=== PATIENT | male | born 1950 | race Hispanic/Latino ===

== ENCOUNTER 2019-04-24 14:17 | Inpatient (IN) | payer MEDICARE ==
[~2019-04-24] VITALS: Ht 182.9 cm; Wt 92.1 kg
--- OUTSIDE RECORDS SUMMARY | 2019-04-24 14:19 | XMS REPORT ---
Author Author [facility] Address Unknown Phone Unavailable Care Team Providers Care Manager Of Broadcast Content Name Role Phone Unavailable Unavailable Problems This patient has no known problems. Allergies, Adverse Reactions, Alerts This patient has no known allergies or adverse reactions. Medications This patient has no known medications. Encounters Start Date/Time End Date/Time Encounter Type Admission Type Attending [facility] Care Department Encounter ID 2019-02-13 08:52:02 Outpatient [facility] CAR [id number] 2019-03-22 08:13:00 2019-03-22 08:13:00 Outpatient [facility] MED [id number] 2019-02-13 08:18:00 2019-02-13 08:18:00 Outpatient [facility] [id number] 2019-02-09 15:20:00 2019-02-09 15:20:00 Outpatient [facility] [id number] 2018-12-21 07:58:00 2018-12-21 07:58:00 Outpatient [facility] MED [id number]
--- OUTSIDE RECORDS SUMMARY | 2019-04-24 14:19 | XMS REPORT | Summary of Care ---
Author Author DAYAMI HEARD M.D. Organization Unknown Address Unknown Phone Unavailable Care Team Providers Care Vision Impaired Teacher Name Role Phone DAYAMI HEARD M.D. Unavailable Unavailable JUSTINA P.A. REEMELE Unavailable Unavailable TERELL CH MD Unavailable Unavailable Functional Status Name Dates Details Functional status health issues are not documented Status: Name Dates Details Cognitive status health issues are not documented Status: Problems Name Dates Details Closed displaced intertrochanteric fracture of right femur with routine healing (V54.13, S72.141D) Status: Active Medications Name Dates Details Vitamin D (Ergocalciferol) 51113 UNIT Oral Capsule TAKE 1 CAPSULE WEEKLY. Quantity: 8 JUSTINA P.A., REEJU * Start : 12-May-2018 Active Vitamin D (Ergocalciferol) 07087 UNIT Oral Capsule TAKE 1 CAPSULE WEEKLY. * Quantity: 12 Refills: 0 DAYAMI HEARD M.D. * Start : 12-May-2018 Active Meloxicam 7.5 MG Oral Tablet TAKE 1 TABLET DAILY WITH FOOD. * Quantity: 30 Refills: 1 JUSTINA P.A., REEJU * Start : 29-Jun-2018 Active Allergies and Adverse Reactions Name Dates Details Ibuprofen TABS (Allergy) Status: Active Procedures Procedure Dates Details Procedures not documented Immunization Name Dates Details Immunizations not documented Social History Name Dates Details Unknown if ever smoked Vital Signs Date Test Result Details [id number] Height 72 in Status: Weight 230 lb Status: Body Mass Index Calculated 31.19 kg/m2 Status: Body Surface Area Calculated 2.26 m2 Status: Results Date Description Value Details [id number] [U] XRAY FEMUR 2 VWS RIGHT 43583 XR FEMUR 2 VWS RIGHT Images acquired, not reported on this accession number. Plan of Care Name Dates Details Planned Observations Planned Goals not documented Interventions Provided Medication Changes* Meloxicam 7.5 MG Oral Tablet - Start Labs/Procedures/Imaging* [U] XRAY FEMUR 2 VWS RIGHT 00599; Done: 29 Jun 2018 Plan* pain med prn * continue calcium and vit d supplement * PT: WBAT RLE * mobic rx given - aware of ibuprofen reaction, pt states he has taken advil with no reaction. Advised pt to try one - if no reaction continue med , if pt has reaction to go to nearest ER * RTC in 6 weeks if symptoms does not improve otherwise return to clinic prn. * D/w Dr. Heard. Instructions Name Dates Details Instructions not documented Encounters Appointment; DAYAMI HEARD M.D. Encounter Diagnosis: Problem not documented On: 30-Mar-2018 11:30 Appointment; MONICO HORN P.A. Encounter Diagnosis: Problem not documented On: 12-May-2018 13:45 Appointment; DAYAMI HEARD M.D. Encounter Diagnosis: Problem not documented On: 29-Jun-2018 10:00
[2019-04-24] MEDS ORDERED: DEXTROSE 5% 1,000 ML IV ONE (14:45)
[2019-04-24] MEDS ORDERED: DEXTROSE 5%/0.9% SOD CHL 1,000 ML IV ONE (14:45)
--- NOTE | 2019-04-24 15:06 | NUR ---
STRAIGHT CATH INSERTED PT HAS APPROX 800 CC URINE OUTPUT MD NOTIFIED
--- NOTE | 2019-04-24 15:39 | NUR ---
PER DR KEITH INSERT COLLAZO CATHETHER DUE TO URINARY RETENTION NOTED FROM INSERTION OF STRAIGHT CATHETER; POST INSERTION OF COLLAZO CATHETER PT HAS APPROX 170 CC URINE OUTPUT NOTIFIED
[2019-04-24 15:42] LABS: BASOPHILS % 0.3 % (0.0-1.0); EOSINOPHILS # (AUTO) 0.2 (0.0-0.4); HEMATOCRIT 26.5 % (38.2-49.6); HEMOGLOBIN 8.6 g/dL (14.0-18.0); LYMPHOCYTES # (AUTO) 1.3 (1.0-3.2); MEAN CORPUSCULAR HEMOGLOBIN 32.3 pg (28-32); MEAN CORPUSCULAR HGB CONC 32.5 g/dL (31-35); MEAN CORPUSCULAR VOLUME 99.6 fL (81-99); MONOCYTES # (AUTO) 0.6 (0.2-0.8); MONOCYTES % 4.7 % (4.4-11.3); NEUTROPHILS # (AUTO) 9.6 (2.1-6.9); NEUTROPHILS % 81.7 % (38.7-80.0); PLATELET COUNT 137 x10e3/uL (140-360); RED BLOOD COUNT 2.66 x10e6/uL (4.3-5.7); RED CELL DISTRIBUTION WIDTH 12.7 % (11.7-14.4)
[2019-04-24 15:44] LABS: BILIRUBIN,URINE NEGATIVE (NEGATIVE); CLARITY,URINE CLOUDY (CLEAR); COLOR,URINE YELLOW (YELLOW); KETONES,URINE NEGATIVE (NEGATIVE); LEUKOCYTE ESTERASE ,URINE LARGE (NEGATIVE); NITRITE,URINE NEGATIVE (NEGATIVE); PROTEIN,URINE DIPSTICK TRACE (NEGATIVE); URINE UROBILINOGEN 0.2 mg/dL (0.2 - 1)
--- NOTE | 2019-04-24 15:48 | NUR ---
PT FAMILY BROUGHT FOOD FOR PT PER MD REQUEST; PT EATING MEAL AT THIS TIME
[2019-04-24 16:01] LABS: ALBUMIN 2.9 g/dL (3.5-5.0); ALBUMIN/GLOBULIN RATIO 0.7 (0.8-2.0); ANION GAP 11.2 mmol/L (8-16); CALCIUM 8.5 mg/dL (8.4-10.2); CREATININE, SERUM 1.56 mg/dL (0.72-1.25); POTASSIUM 4.2 mmol/L (3.5-5.1)
[2019-04-24 16:05] LABS: BACTERIA,URINE MANY /HPF; RBC,URINE 0-5 /HPF (0-5); WBC,URINE (MAN) 21-50 /HPF (0-5)
[2019-04-24 16:21] LABS: CREATINE KINASE MB 2.4 ng/mL (0-5.0); THYROID STIMULATING HORMONE 1.327 uIU/mL (0.350-4.940)
--- NOTE | 2019-04-24 16:21 | Diagnostic Imaging Report ---
EXAMINATION: CHEST SINGLE (PORTABLE) INDICATION: Cough, concern for pneumonia. COMPARISON: None FINDINGS: TUBES and LINES: AICD leads project over the right atrium and right ventricle. EKG leads project over the chest. LUNGS: The lung volumes are low. No focal consolidation or pulmonary edema. PLEURA: No pleural effusion or pneumothorax. HEART AND MEDIASTINUM: The cardiomediastinal silhouette is unremarkable. BONES AND SOFT TISSUES: No acute fracture or dislocation. Soft tissues are unremarkable. UPPER ABDOMEN: No free air under the diaphragm. IMPRESSION: Low lung volumes with no focal pneumonia or pulmonary edema. Signed by: Vijay Mendez MD on 04/24/2019 4:17 PM
[2019-04-24] MEDS ORDERED: ONDANSETRON HCL INJ 2MG/ML 2ML 2 MG/ML VIAL IV PRN (17:30)
[2019-04-24] MEDS: SODIUM CHLORIDE 0.9% 1000ML 1,000 ML IV SCH (17:42)
[2019-04-24 18:05] LABS: FERRITIN 226.97 ng/mL (21.81-274.66)
[2019-04-24] MEDS ORDERED: DEXTROSE 50% SYRINGE 50 ML IV PRN (18:15)
[2019-04-24] MEDS: INSULIN LISPRO 100 UNIT/1 ML 3ML VIAL SQ SCH (18:29)
[2019-04-24] MEDS ORDERED: INSULIN REGULAR, HUMAN 100 UNIT/1 ML 3ML VIAL ONE (18:30)
--- NOTE | 2019-04-24 18:50 | NUR ---
Resting in bed, side rails upx2, call light within reach. AAOX3 to time, person, place. Respirations even and unlabored. Bumex 10ml via right FA 20G IV. Report to be given to oncoming nurse of patients status.
[2019-04-24 20:00] VITALS: BP 142/68
--- NOTE | 2019-04-24 20:00 | NUR ---
Patient received lying in bed. AAO x 3. Admission history obtained. Initial physical assessment conducted. Patient had no complaints of pain. Respirations even and non-labored. Nassar catheter draining pale cloudy urine by gravity. IVF infusing at 75 cc/hr. Dressing on left foot assessed and changed. Two ulcers noted to left great toe and old scabs on right/left due to wheelchair transfers at home. Skin abrasion on right weathers. Patient oriented to room, call light and plan of care. Fall precautions implemented. Patient instructed to call for assistance when needed. Call light within reach.
[2019-04-24 22:00] VITALS: BP 142/68
[2019-04-25] VITALS (7 sets, daily range): BP systolic 123–162; BP diastolic 56–73
[2019-04-25] MEDS ORDERED: ATORVASTATIN CA10 MG PO (00:26)
[2019-04-25] MEDS ORDERED: ASPIR 8181 MG PO (00:26)
[2019-04-25] MEDS ORDERED: CLOPIDOGREL75 MG PO (00:26)
[2019-04-25] MEDS ORDERED: SERTRALINE HCL50 MG PO (00:26)
[2019-04-25] MEDS ORDERED: B-121000 MCG PO (00:26)
[2019-04-25] MEDS ORDERED: CARVEDILOL3.125 MG PO (00:26)
[2019-04-25] MEDS ORDERED: FINASTERIDE5 MG PO (00:26)
[2019-04-25] MEDS ORDERED: FUROSEMIDE40 MG PO (00:26)
[2019-04-25] MEDS ORDERED: LANTUS 3ML100 UNITS/ SQ (00:26)
[2019-04-25] MEDS ORDERED: LISINOPRIL2.5 MG PO (00:26)
[2019-04-25] MEDS ORDERED: FLOMAX0.4 MG PO (00:26)
[2019-04-25] MEDS ORDERED: SPIRONOLACTONE25 MG PO (00:26)
[2019-04-25 05:24] LABS: BASOPHILS # (AUTO) 0.1 (0.0-0.1); BASOPHILS % 0.7 % (0.0-1.0); EOSINOPHILS # (AUTO) 0.3 (0.0-0.4); EOSINOPHILS % 3.3 % (0.0-6.0); HEMATOCRIT 27.6 % (38.2-49.6); HEMOGLOBIN 9.1 g/dL (14.0-18.0); LYMPHOCYTES # (AUTO) 1.9 (1.0-3.2); MEAN CORPUSCULAR HEMOGLOBIN 32.5 pg (28-32); MEAN CORPUSCULAR VOLUME 98.6 fL (81-99); MONOCYTES # (AUTO) 0.6 (0.2-0.8); NEUTROPHILS # (AUTO) 4.8 (2.1-6.9); NEUTROPHILS % 62.9 % (38.7-80.0); PLATELET COUNT 143 x10e3/uL (140-360); RED CELL DISTRIBUTION WIDTH 12.4 % (11.7-14.4)
[2019-04-25 05:44] LABS: ANION GAP 12.8 mmol/L (8-16); CALCIUM 8.9 mg/dL (8.4-10.2); CREATININE, SERUM 1.43 mg/dL (0.72-1.25); POTASSIUM 4.8 mmol/L (3.5-5.1)
--- NOTE | 2019-04-25 07:12 | NUR ---
Walking rounds done . Shift report given to oncoming nurse.
[2019-04-25] MEDS: INSULIN LISPRO 100 UNIT/1 ML 3ML VIAL SQ SCH ×4 (08:51→21:00)
--- NOTE | 2019-04-25 09:57 | Consultation ---
DATE OF CONSULTATION: 04/25/2019 Urology Consultation REASON FOR CONSULTATION: Recurrent urinary retention. HISTORY OF PRESENT ILLNESS: Alex Guo is a 68-year-old man admitted with altered mental status, hypoglycemia, acute kidney injury, anemia, and acute cystitis. The patient was unable to void, Nassar catheter was placed revealing urinary retention of 500 mL. Urological consultation was subsequently sought. The patient denies urolithiasis or any urological surgery. The patient saw urologist in the past in [facility], but does not recall his name. He denies any urinary incontinence. PAST MEDICAL AND SURGICAL HISTORY: 1. Hypertension. 2. Diabetes mellitus. 3. CHF. 4. CVA. 5. Status post tonsillectomy. 6. Status post circumcision. 7. Status post multiple lower extremity surgeries. SOCIAL HISTORY: The patient quit smoking when he was about 32 years old. Denies smoking, ethanol, or drug use. 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 ALLERGIES: IBUPROFEN. CURRENT MEDICATIONS: Refer to the MAR. REVIEW OF SYSTEMS: Discussed as above in history of present illness and past medical history, otherwise negative for all other systems. FAMILY HISTORY: Noncontributory to the active urological problems. PHYSICAL EXAMINATION: GENERAL: Chronically ill-appearing man, lying in bed, in no apparent distress. VITAL SIGNS: He is currently afebrile. Vital signs are currently stable. ABDOMEN: Soft, nondistended, nontender without costovertebral angle tenderness. Kidneys not palpable without hepatosplenomegaly. No obvious evidence of hernia. GENITOURINARY: Testes are descended bilaterally. Testes and epididymides are nontender. The patient has a normal circumcised male phallus with normal meatus with Nassar catheter in place draining yellow urine out. For the remaining physical examination systems, please refer to the admission history and physical in the chart. LABORATORY STUDIES: Urine culture is pending. White blood cell count is 7670, which is lower than the 11,730, that was yesterday; hemoglobin 9.1; platelets today are normal at 143, yesterday they were low at 137. The patient's creatinine is 1.43. Urinalysis is significant for 21-50 wbc's with many bacteria. ASSESSMENT: 1. Recurrent urinary retention. 2. Leukocytosis that improved. 3. Thrombocytopenia that is better. 4. Chronic renal insufficiency that is stable. 5. Urinary tract infection. 6. Nassar catheter in situ. 7. Benign prostatic hypertrophy according to the patient due to the fact that he takes prostate medications, which he does not recall at the present time the names. PLAN: 1. Leave the Nassar catheter in place at the present time. 2. Await urine culture and sensitivity and in turn adjust the antibiotics regimen. The patient currently does not seem to be antibiotics and I will therefore order him some. 3. I will order a CT scan of the abdomen and pelvis without contrast. 4. At some point, cystoscopy and retrograde pyelograms will be warranted. Thank you very much for involving us in the care of your patient. We will be happy to follow along with you as well as an outpatient. MD MARION Ortega/MIGDALIA /[id number]
--- NOTE | 2019-04-25 10:03 | Diagnostic Imaging Report ---
Exam: Left foot series, 3 views. Clinical History: Concern for osteomyelitis Comparison: None. Findings: Diffuse osteopenia. No acute fracture or dislocation. Bandage material overlies the great toe. No specific radiographic evidence of osteomyelitis. Plantar calcaneal spur. Scattered atelectatic vascular calcifications. Impression: No acute osseous injury. No specific evidence of osteomyelitis. Signed by: Vijay Mendez MD on 04/25/2019 10:00 AM
[2019-04-25] MEDS: SODIUM CHLORIDE 0.9% 1000ML 1,000 ML IV SCH ×2 (10:06→22:11)
[2019-04-25] MEDS: CEFTRIAXONE SOD 1 GM/NS 50 ML 50 ML IV SCH (10:06)
--- NOTE | 2019-04-25 12:14 | Consultation ---
DATE OF CONSULTATION: 04/25/2019 REASON FOR CONSULTATION: Left foot wound. HISTORY OF PRESENTING ILLNESS: This is a 68-year-old male with past medical history type 2 diabetes, who was admitted through the emergency room for altered mental status and hypoglycemia. The Podiatry service is being consulted for left foot wound. This patient is known to me from being seen as an outpatient approximately two times over the past month. He has a longstanding history of a wound to his left 1st metatarsal head, which has been present for over six months and was previously being treated at a wound care facility. The majority of the history was taken from the patient's brother, who was in the room as patient has altered mental status. The patient also had a stenting procedure of the left lower extremity for peripheral vascular disease approximately six months ago. The patient had been placed on antibiotics and doing local wound care to the left foot. As an outpatient, an MRI was ordered, however, the patient cannot undergo MRI due to pacemaker. The patient currently denies nausea, vomiting, fever, or chills. PAST MEDICAL HISTORY: 1. Type 2 diabetes, peripheral neuropathy. 2. Hypertension. 3. Congestive heart failure. 4. Peripheral vascular disease status post angioplasty. SOCIAL HISTORY: The patient has a history of smoking. Denies alcohol use. He denies any illicit drug usage. ALLERGIES: IBUPROFEN. CURRENT MEDICATIONS: Per the chart. REVIEW OF SYSTEMS: The patient currently denies nausea, vomiting, fever, chills, chest pain, or shortness of breath. PHYSICAL EXAMINATION: GENERAL: Alert and oriented x3, in no apparent distress. VITAL SIGNS: Today, temperature is 97.1, heart rate 71, respiratory rate 18, blood pressure 134/56, pulse ox is 95% on room air. PROBLEM FOCUSED LOWER EXTREMITY PHYSICAL EXAM: VASCULAR: Dorsalis pedis and posterior tibial pulses are nonpalpable to the left lower extremity. Capillary refill time is delayed to the digits approximately 4-5 seconds. Negative erythema, but chronic edema and hemosiderin discoloration is noted to the patient's left hallux. NEUROLOGICAL: Sensation is absent to light touch bilateral. MUSCULOSKELETAL: Deferred at this time. DERMATOLOGICAL: Two open ulcerations are noted to the patient's left foot medial to the left 1st metatarsal head and medial to the left proximal phalanx. The proximal wound is approximately 2 cm x 1 cm and the distal wound is approximately 0.5 cm x 0.5 cm. There is chronic-appearing edema to the periwound. Negative erythema, negative drainage. LABORATORY DATA: White blood cell count is 7.6, hemoglobin 9.1, hematocrit 27.6, platelet count of 143. Sodium 141, potassium 4.8, chloride 109, BUN 37, creatinine 1.43, glucose 141. IMAGING: X-rays, two views were taken of the patient's left foot, which revealed no acute osseous injury, no evidence of osteomyelitis. ASSESSMENT: 1. Left foot chronic ulcerations with possible osteomyelitis. 2. Type 2 diabetes with peripheral neuropathy. 3. Peripheral vascular disease. PLAN: The patient was seen and evaluated. Discussed condition, x-rays, treatment options with the patient in detail. Since the patient has a chronic-appearing wound for greater than six months, we will order advanced imaging to determine if osteomyelitis is present to determine further course of action. The patient would require long-term IV antibiotics versus a partial amputation of the patient's left foot. The case was discussed with the patient's brother by phone after being seen. Since the patient is not a candidate for an MRI due to previous pacemaker placement, we will order white blood cell labeled bone scan to determine if osteomyelitis is present. The Podiatry service will continue to monitor as inpatient. PIOTR Jang/MIGDALIA /[id number]
--- NOTE | 2019-04-25 14:25 | Diagnostic Imaging Report ---
PROCEDURE: CT ABDOMEN AND PELVIS WITHOUT CONTRAST TECHNIQUE: The abdomen and pelvis were scanned utilizing a multidetector helical scanner from the diaphragm to the lesser trochanter without IV or oral contrast material per renal stone protocol. Coronal and sagittal multiplanar reformations were obtained. Technique modification was utilized to maintain the lowest is possible to the patient. DLP: 869.35 mGy-cm COMPARISON: None. INDICATIONS: HEMATURIA FINDINGS: ABSENCE OF INTRAVENOUS CONTRAST DECREASES SENSITIVITY FOR DETECTION OF FOCAL LESIONS AND VASCULAR PATHOLOGY. LOWER THORAX: Leads from a cardiac device. HEPATOBILIARY: No focal hepatic lesions. No biliary ductal dilatation. Calcified gallstone within the gallbladder. SPLEEN: No splenomegaly. PANCREAS: No focal masses or ductal dilatation. ADRENALS: No adrenal nodules. KIDNEYS/URETERS: No hydronephrosis or stones. Right lower pole contour abnormality may represent a solid renal mass. Ultrasound or enhanced CT would be of benefit for further characterization. PELVIC ORGANS/BLADDER: Unremarkable. PERITONEUM / RETROPERITONEUM: No free air or fluid. LYMPH NODES: No lymphadenopathy. VESSELS: Diffuse vascular calcification. GI TRACT: No distention or wall thickening. BONES AND SOFT TISSUES: Partially visualize intramedullary main and femoral neck screws in the proximal right femur. Degenerative changes of the lower lumbar spine. IMPRESSION: 1. Right lower pole renal contour abnormality could represent a solid mass. 2. Single stone within the gallbladder. Hernan Crespo D.O. Dictated by: Hernan Crespo D.O. on 04/25/2019 at 14:28 Electronically approved by: Hernan Crespo D.O. on 04/25/2019 at 14:28
--- NOTE | 2019-04-25 14:56 | NUR ---
Notified Dr.Hampel Kincaid of CT results. No new orders
--- NOTE | 2019-04-25 15:15 | NUR ---
Visit made by the Spiritual Care Department Pastoral Visitor, [place]. Pt sleeping soundly and no family present. Pastoral Visitor left a card describing availability of establishment guide and instructions on how to contact a establishment guide. HUEY HARVEY Ship Superintendent Spiritual Care Department O: [phone] Pager: [phone] ([phone] number calling from)
--- NOTE | 2019-04-25 19:05 | NUR ---
Report given to oncoming nurse of patient's status. Patient with nuclear medicine
--- NOTE | 2019-04-25 19:15 | NUR ---
Patient off floor for procedure ---WBC label bone scan to r/o OM.
--- NOTE | 2019-04-25 20:00 | NUR ---
Patient back to floor from procedure. Patient in stable condition. No acute distress noted. IVF infusing at 75 cc /hr. Patient made comfortable. Fall precautions implemented. Call light within reach.
[2019-04-25] MEDS ORDERED: ATORVASTATIN 10 MG TAB PO SCH (21:00)
[2019-04-25] MEDS: CARVEDILOL 3.125 MG TAB PO SCH (22:22)
[2019-04-25] MEDS: LISINOPRIL 2.5 MG TAB PO SCH (22:23)
[2019-04-26] VITALS (7 sets, daily range): BP systolic 111–141; BP diastolic 52–65
--- NOTE | 2019-04-26 00:08 | Diagnostic Imaging Report ---
Labeled WBC Study Reason for exam: Chronic wound over left 1st metatarsal head x 6 months; evaluate for osteomyelitis Comparison: Left foot radiographs 04/25/2019 Report: The patient's own white blood cells were labeled with Tc-99m HMPAO 30 mCi by a commercial radiopharmacy. Images of the feet and ankles were obtained at 4 hours post administration of the labeled white blood cells. Foci of increased tracer activity are seen in soft tissue superficially at the medial aspect of the left foot opposite the 1st metatarsal head and opposite the distal phalanx of the left great toe. No abnormal accumulation of tracer is seen in bone. Distribution of tracer activity is otherwise unremarkable throughout the feet and ankles. IMPRESSION: No scan evidence of osteomyelitis or septic joint in the left 1st metatarsal head or elsewhere within the feet and ankles. Signed by: Dr. Milly Bragg M.D. on 04/26/2019 12:05 AM
--- NOTE | 2019-04-26 07:00 | NUR ---
BEDSIDE REPORT FROM NIGHT RN. PT DENIES NEEDS AT THIS TIME.
[2019-04-26] MEDS: INSULIN LISPRO 100 UNIT/1 ML 3ML VIAL SQ SCH ×3 (07:30→16:57)
--- NOTE | 2019-04-26 08:00 | NUR ---
DRESSING CHANGED WET TO DRY AT BEDSIDE BY DR MARTINEZ AT THIS TIME. PT TOLERATED
[2019-04-26] MEDS ORDERED: TAMSULOSIN HCL 0.4 MG CAP PO SCH (09:00)
[2019-04-26] MEDS ORDERED: INSULIN GLARGINE 100 UNITS/ML VIAL SQ SCH (09:00)
[2019-04-26] MEDS ORDERED: CLOPIDOGREL BISULFATE 75 MG TAB PO SCH (09:00)
[2019-04-26] MEDS ORDERED: ASPIRIN 81 MG CHEW TAB PO SCH (09:00)
[2019-04-26] MEDS ORDERED: FUROSEMIDE 40 MG TAB PO SCH (09:00)
[2019-04-26] MEDS ORDERED: NON-FORMULARY MEDICATION (Cyanocobalamin (Vitamin B-12) (B-12) 1,000 MCG) PO SCH (09:00)
[2019-04-26] MEDS ORDERED: CYANOCOBALAMIN 1,000 MCG TAB PO SCH (09:00)
[2019-04-26] MEDS ORDERED: INSULIN GLARGINE SQ SCH (09:00)
[2019-04-26] MEDS ORDERED: SPIRONOLACTONE 25 MG TAB PO SCH (09:00)
[2019-04-26] MEDS ORDERED: SERTRALINE HCL 50 MG TAB PO SCH (09:00)
[2019-04-26] MEDS ORDERED: FINASTERIDE 5 MG TAB PO SCH (09:00)
[2019-04-26] MEDS: CARVEDILOL 3.125 MG TAB PO SCH (09:25)
[2019-04-26] MEDS: LISINOPRIL 2.5 MG TAB PO SCH (09:26)
[2019-04-26] MEDS: SODIUM CHLORIDE 0.9% 1000ML 1,000 ML IV SCH (09:27)
[2019-04-26] MEDS: CEFTRIAXONE SOD 1 GM/NS 50 ML 50 ML IV SCH (09:29)
--- NOTE | 2019-04-26 10:17 | Progress Note ---
DATE: 04/26/2019 SUBJECTIVE: This is a 68-year-old male with past medical history of type 2 diabetes, peripheral vascular disease, peripheral neuropathy, who was admitted to the emergency room for altered mental status, hypoglycemia. The Podiatry being consulted for a left foot wound. The patient has no new pedal complaints today. Denies nausea, vomiting, fever, chills, chest pain, or shortness of breath. PHYSICAL EXAMINATION: GENERAL: Alert and oriented x3, in no apparent distress. VITAL SIGNS: Today temperature 97.5, heart rate 69, respiratory rate 17, blood pressure 136/65, and pulse ox 97% on room air. PROBLEM FOCUSED LOWER EXTREMITY PHYSICAL EXAMINATION: VASCULAR: Dorsalis pedis and posterior tibial pulses are nonpalpable to the left lower extremity. Capillary refill time is delayed to the digits approximately 4 to 5 seconds. Negative erythema, but chronic edema with hemosiderin deposits are noted to the patient's left hallux. NEUROLOGICAL: Sensation is absent to light touch bilateral. MUSCULOSKELETAL: Deferred at this time. DERMATOLOGICAL: Two open ulcerations are noted to the patient's left foot along the medial aspect of the 1st metatarsal head and medial aspect of the left proximal phalanx. Both wounds appear to be stable from yesterday's visit and appear largely unchanged. LABORATORY DATA: Labs today glucose 129. IMAGING: Foot x-ray, no acute osseous injury. No specific evidence of osteomyelitis, white blood cell labeled nuclear bone scan reveals no scan evidence of osteomyelitis, septic joint of the 1st metatarsal head or elsewhere within the feet and ankles. ASSESSMENT: 1. Left chronic foot ulcerations. 2. Type 2 diabetes, peripheral neuropathy. 3. Peripheral vascular disease, status post angioplasty. PLAN: The patient was seen and evaluated. Discussed condition, x-rays, and treatment options with the patient in detail. The patient was unable to have MRI yesterday due to pacemaker. So, a white blood cell labeled bone scan was ordered for the patient's left foot, which revealed no osseous evidence of osteomyelitis in the 1st metatarsal head of proximal phalanx. At this time, we will continue local wound care with Betadine wet-to-dry fashion and IV antibiotics. The patient is stable to be discharged from the Podiatry standpoint to follow up in the office within 3 to 5 days of discharge. The Podiatry Service will continue to monitor as inpatient. PIOTR Jang /[id number]
--- NOTE | 2019-04-26 15:43 | NUR ---
CM SPOKE TO PATIENT AT BEDSIDE REGARDING IMM LETTER. IMM LETTER GIVEN WITH EXPLANATION BASED ON ANTICIPATED DISCHARGE DATE. ORIGINAL SIGNED AND PLACED IN CHART; COPY OF ORIGINAL DOCUMENT GIVEN TO PATIENT AT BEDSIDE AND PLACED IN CARE TRANSITION FOLDER. CM CONTACT INFORMATION GIVEN TO PATIENT FOR ANY NEEDS OR CONCERNS. PATIENT WITH NO FURTHER QUESTIONS.
--- NOTE | 2019-04-26 15:45 | NUR ---
TEACHING GIVEN TO PT AND BROTHER ON COLLAZO CARE. TEACH BACK BY THE PT DONE WITH SUCCESS. PT FURNISHED SUPPLIES. PT AND FAMILY MEMBER DENIED FURTHER NEEDS.
--- NOTE | 2019-04-26 16:04 | NUR ---
CM SPOKE TO DR. MEYER REGARDING DISCHARGE PLAN AND PLAN OF CARE. MD PLACED DISCHARGE ORDERS DUE TO RESOLVED AMS AND ADEQUATE UTI TREATMENTS. INFORMED THAT PATIENT WAS RECOMMENDED TO HAVE INPT REHAB OR HOME HEALTH PRIOR TO DISCHARGE. DR. MEYER STATES NOT TO ORDER EITHER; PATIENT IS RETURNING HOME. CM SPOKE TO PATIENT AT BEDSIDE REGARDING DISCHARGE PLAN AND PLAN OF CARE. PATIENT REFUSED THE NEED OF ANY SERVICES AND WILL DISCHARGE HOME WITH NO NEEDS.
[2019-04-26] MEDS ORDERED: AUGMENTIN 875-1 EACH PO (16:33)
--- NOTE | 2019-04-26 17:15 | NUR ---
RUSESLL WHEELED PT OUT TO [employer] TRUCK. PT ABLE TO STEP UP INTO 1 TON TRUCK WITH NO ASSISTANCE.
[2019-04-26] MEDS ORDERED: PENICILLIN V POTASSIUM 500 MG TAB PO SCH ×2 (18:00)
--- NOTE | 2019-05-30 15:51 | Discharge Summary ---
CHIEF COMPLAINT: Altered mental status secondary to findings of low blood sugar. FINAL DIAGNOSES: 1. Urinary tract infection. 2. Altered mental status, resolved. 3. Peripheral vascular disease. DISPOSITION: Home. HOSPITAL COURSE: A 68-year-old male with known history of diabetes type 2 and hypertension, chronic congestive heart failure, status post CVA, brought to the ER with issues of altered mental status due to low blood sugar. There has been no loss of consciousness. No nausea, vomiting, or fever or chills. Evaluation was carried out in the ER. Lower extremities were showing the left foot to have decreased pedal pulses with chronic ulcerations. Blood was reviewed. X-rays were reviewed. Admission was made regarding the altered mental status, hypoglycemia, UTI, peripheral vascular disease, hypertension, status post CVA. Admission will be directed with the urine studies. We will be requesting a Podiatry consult. Home medications were continued as well. As the patient's stay was beginning, it was noted that he was having history and issues of recurrent urinary retention, had been unable to void. A Nassar catheter was placed and 500 mL of urine was released. It was reviewed with Dr. Levine. His impression was recurrent urinary retention, leukocytosis that is improving, thrombocytopenia that is improving, chronic renal insufficiency that is stable, urinary tract infection, Nassar catheter in situ, benign prostatic hypertrophy, according to the patient due to the fact that he takes prostate medications. Requested to leave the Nassar in place for the current time. Awaiting urine cultures. We will be setting up a CT of the abdomen and pelvis. He was then being seen by Dr. Donahue, Podiatry, with issues related to the left foot and following his evaluation of the patient, assessment was made of left foot chronic ulcerations with possible osteomyelitis, type 2 diabetes with peripheral neuropathy, peripheral vascular disease. States that the patient has a chronic appearing wound for greater than 6 months. We will be determining if osteomyelitis is present to determine further course of action. The patient would require long-term IV antibiotics versus a partial amputation of the patient's left foot. Unfortunately, the patient is not a candidate for MRI due to pacemaker placement. A white blood cell labeled bone scan will be determined if osteomyelitis is present. The patient was placed on the [facility] floor, was on ADA diet, was on IV fluids, was on his routine daily medications. We will also continue with his insulin management. Laboratory studies were being closely watched. The patient was demonstrating some mild anemia. Nassar is on board now to assess the patient's urinary retention. Nassar was scheduled to be discontinued by Dr. Levine. The patient was also under the antibiotic management of ceftriaxone. Continued to show evidence of recovery, doing okay overall, alert and orientated x3, was stable enough to be discharged home and to follow up as an outpatient, to be taken off his IV antibiotics, will be addressing p.o. antibiotics outpatient. DIAGNOSTIC AND LABORATORY DATA: X-rays, chest shows low lung volumes with no focal pneumonia or pulmonary edema. White blood cell scan, nuclear medicine study shows no scan evidence of osteomyelitis or septic joint in the left first metatarsal head or elsewhere within the feet and ankles. Routine foot x-ray, left 3 views unremarkable. Abdomen and pelvis CT reveal right lower pole renal contour abnormality could represent a solid mass. Single stone within the gallbladder. Cultures, urine was revealing Enterococcus faecalis. Other laboratory studies shows a CBC initial white cell count 11,700, initial H and H 8.6 and 26.5. Followup CBC one day later, white cell count normal 7600, H and H improved slightly to 9.7 and 27.6. Urinalysis, trace protein, 1+ glucose, trace occult blood. Microscopic examination of sediment was showing 0-5 rbc's by high-power field, 21-50 wbc's by high-power field, many bacteria. Chemistries, initial study, electrolytes were stable. Kidney functions, BUN 42, creatinine 1.56, glucose 215, and with the issues of his minor anemia, a panel was performed showing iron to be low at 33, TIBC low at 238, percent saturation low at 14, transferrin low at 170. Vitamin B12 was elevated at 1207. Followup blood sugars were as high as 326, final study 147. Improvement was documented and the patient was discharged home. DISCHARGE INSTRUCTIONS: We will continue on ADA diet. No equipments or supplies are necessary. No drains or Nassar was needed. Activity level as directed by myself, Dr. Levine, and Dr. Donahue. We noted that he has no documented PCP on his demographic form. It was assured that he may follow back up with me in my office in 2-3 weeks or make a choice to find a PCP. He will be requested to follow up with Dr. Donahue within next 2 weeks for further evaluation of his lower extremities. Following also back up with Dr. Levine outpatient to address his urinary retention. DISCHARGE MEDICATIONS: He will continue on: 1. Augmentin 875 one tablet p.o. b.i.d. #20. 2. Aspirin 81 mg daily. 3. Atorvastatin calcium 10 mg p.o. daily. 4. Carvedilol 3.125 p.o. daily. 5. Plavix 75 mg daily. 6. Vitamin B12 1000 mcg p.o. daily. 7. Finasteride 5 mg p.o. daily. 8. Furosemide 40 mg daily. 9. Lantus 35 units subcu daily. 10. Lisinopril 2.5 mg p.o. daily. 11. Sertraline 50 mg p.o. daily. 12. Spironolactone 25 mg p.o. daily. 13. Flomax 0.4 mg p.o. daily. Dictated by HAZEL Boucher Barrett Anders MD CC/MODL /[id number]
== END 2019-04-26 19:07 | disposition home or self-care (01) | DRG 689 ==
LOC: ER 14:17 → ERHOLD 17:53 → MED/SURG2 18:46
DX: N39.0 Urinary tract infection, site not specified (principal); G93.41 Metabolic encephalopathy; L97.528 Non-pressure chronic ulcer of other part of left foot with other specified severity; I13.0 Hypertensive heart and chronic kidney disease with heart failure and stage 1 through stage 4 chronic kidney disease, or unspecified chronic kidney disease; I73.9 Peripheral vascular disease, unspecified; G62.9 Polyneuropathy, unspecified; E11.621 Type 2 diabetes mellitus with foot ulcer; Z79.4 Long term (current) use of insulin; I50.9 Heart failure, unspecified; Z95.0 Presence of cardiac pacemaker; Z86.73 Personal history of transient ischemic attack (TIA), and cerebral infarction without residual deficits; Z87.891 Personal history of nicotine dependence; D69.6 Thrombocytopenia, unspecified; N40.1 Benign prostatic hyperplasia with lower urinary tract symptoms; R33.8 Other retention of urine; E11.42 Type 2 diabetes mellitus with diabetic polyneuropathy; E11.649 Type 2 diabetes mellitus with hypoglycemia without coma; E11.22 Type 2 diabetes mellitus with diabetic chronic kidney disease; N18.9 Chronic kidney disease, unspecified
CPT/HCPCS: 36415; 51700; 71045; 74176; 78806; 80048; 80053; 81001; 82270; 82550; 82553; 82607; 82728; 82948; 83540; 84443; 84466; 84484; 85025; 87086; 87186; 93005; 96361; 97139; 99284; A9556; A9570; J0696; J1815; J1817; J7030; J7070

== ENCOUNTER 2019-07-02 11:08 | Inpatient (IN) | payer MEDICARE ==
[2019-07-02] VITALS (9 sets, daily range): BP systolic 92–134; BP diastolic 38–67
[~2019-07-02] VITALS: Ht 365.8 cm; Wt 93.0 kg
[~2019-07-02 11:08] MED LIST: ASPIR 8181 MG PO; ATORVASTATIN CA10 MG PO; AUGMENTIN 875-1 EACH PO; B-121000 MCG PO; CARVEDILOL3.125 MG PO; CLOPIDOGREL75 MG PO; FINASTERIDE5 MG PO; FLOMAX0.4 MG PO; FUROSEMIDE40 MG PO; LANTUS 3ML100 UNITS/ SQ; LISINOPRIL2.5 MG PO; SERTRALINE HCL50 MG PO; SPIRONOLACTONE25 MG PO
[2019-07-02] MEDS ORDERED: SODIUM CHLORIDE 0.9% 1000ML 1,000 ML IV ONE (11:30)
[2019-07-02 11:55] LABS: BASOPHILS % 0.3 % (0.0-1.0); EOSINOPHILS # (AUTO) 0.1 (0.0-0.4); EOSINOPHILS % 0.5 % (0.0-6.0); HEMATOCRIT 24.9 % (38.2-49.6); HEMOGLOBIN 8.3 g/dL (14.0-18.0); LYMPHOCYTES # (AUTO) 1.2 (1.0-3.2); LYMPHOCYTES % 7.4 % (18.0-39.1); MEAN CORPUSCULAR HEMOGLOBIN 32.5 pg (28-32); MEAN CORPUSCULAR HGB CONC 33.3 g/dL (31-35); MEAN CORPUSCULAR VOLUME 97.6 fL (81-99); MONOCYTES # (AUTO) 0.6 (0.2-0.8); MONOCYTES % 3.8 % (4.4-11.3); NEUTROPHILS % 87.6 % (38.7-80.0); PLATELET COUNT 199 x10e3/uL (140-360); RED BLOOD COUNT 2.55 x10e6/uL (4.3-5.7); RED CELL DISTRIBUTION WIDTH 12.5 % (11.7-14.4)
[2019-07-02 12:02] LABS: BILIRUBIN,URINE NEGATIVE (NEGATIVE); CLARITY,URINE CLEAR (CLEAR); COLOR,URINE YELLOW (YELLOW); KETONES,URINE NEGATIVE (NEGATIVE); LEUKOCYTE ESTERASE ,URINE NEGATIVE (NEGATIVE); NITRITE,URINE NEGATIVE (NEGATIVE); PROTEIN,URINE DIPSTICK TRACE (NEGATIVE); URINE UROBILINOGEN 0.2 mg/dL (0.2 - 1)
[2019-07-02] MEDS ORDERED: VANCOMYCIN 1GM/NS 250 ML 250 ML IV SCH (12:15)
[2019-07-02] MEDS ORDERED: CEFEPIME 2 GM/NS 0.9% 100 ML 100 ML IV SCH (12:15)
[2019-07-02 12:22] LABS: BACTERIA,URINE RARE /HPF; EPITHELIAL CELLS,URINE FEW /LPF
[2019-07-02 12:22] LABS: INR 1.13; PROTHROMBIN TIME 15.1 seconds (11.9-14.5)
[2019-07-02 12:23] LABS: PARTIAL THROMBOPLASTIN TIME 39.3 seconds (23.8-35.5)
--- NOTE | 2019-07-02 12:45 | Diagnostic Imaging Report ---
EXAMINATION: CHEST SINGLE (PORTABLE) INDICATION: Hypotension, sepsis. COMPARISON: Chest radiograph 04/24/2019. FINDINGS: TUBES and LINES: Left-sided pacemaker with leads overlying the right atrium and right ventricle. LUNGS: Low lung volumes which decreases sensitivity and specificity for pathology. There is patchy opacity at the right lung base. PLEURA: No pleural effusion or pneumothorax. HEART AND MEDIASTINUM: The cardiomediastinal silhouette is unremarkable. BONES AND SOFT TISSUES: No acute osseous abnormality. UPPER ABDOMEN: No free air under the diaphragm. IMPRESSION: Low lung volumes with patchy opacity at the right lung base, which may reflect atelectasis or early pneumonia in the appropriate clinical setting. Suggest follow-up chest radiograph to assess for resolution. Signed by: Dr. Yamel Guzman MD on 07/02/2019 12:42 PM
[2019-07-02 12:47] LABS: ALBUMIN 2.9 g/dL (3.5-5.0); ALBUMIN/GLOBULIN RATIO 0.6 (0.8-2.0); ANION GAP 14.3 mmol/L (8-16); CALCIUM 8.7 mg/dL (8.4-10.2); CREATININE, SERUM 2.81 mg/dL (0.72-1.25); MAGNESIUM 1.9 MG/DL (1.3-2.1)
[2019-07-02 12:53] LABS: CREATINE KINASE MB 2.6 ng/mL (0-5.0)
[2019-07-02 12:54] LABS: B-TYPE NATRIURETIC PEPTIDE2 175.4 pg/mL (0-100)
[2019-07-02] MEDS ORDERED: AZITHROMYCIN 500MG/NS 250 ML 250 ML IV SCH (13:00)
[2019-07-02 13:15] LABS: POTASSIUM 6.3 mmol/L (3.5-5.1)
[2019-07-02] MEDS ORDERED: SODIUM BICARBONATE 8.4% INJ 50 ML SYR IV NR (13:30)
[2019-07-02] MEDS ORDERED: SOD POLYSTYRENE SULFONATE SUSP 15 GM/60 ML BTL PO NR (13:30)
[2019-07-02] MEDS ORDERED: INSULIN REGULAR, HUMAN 100 UNIT/1 ML 3ML VIAL IV NR (13:30)
[2019-07-02] MEDS ORDERED: DEXTROSE 50% SYRINGE 50 ML IV NR (13:30)
[2019-07-02] MEDS ORDERED: CALCIUM GLUCONATE 10% INJ 4.65 MEQ in SODIUM CHLORIDE 0.9% 50ML 50 ML IV ONE (13:30)
[2019-07-02] MEDS ORDERED: CALCIUM GLUCONATE 10% INJ 0.465 MEQ/ML VIAL ONE (13:37)
[2019-07-02] MEDS ORDERED: INSULIN REGULAR, HUMAN 100 UNIT/1 ML 3ML VIAL ONE (13:39)
--- NOTE | 2019-07-02 13:58 | NUR ---
DR. MONTAÑO AT BEDSIDE EVALUATING PATIENT
[2019-07-02] MEDS: SODIUM CHLORIDE 0.9% 1000ML 1,000 ML IV SCH (14:06)
[2019-07-02] MEDS ORDERED: DEXTROSE 50% SYRINGE 50 ML IV PRN (14:15)
[2019-07-02] MEDS ORDERED: ONDANSETRON HCL INJ 2MG/ML 2ML 2 MG/ML VIAL IV PRN (14:15)
[2019-07-02] MEDS: AZITHROMYCIN 500MG/NS 250 ML 250 ML IV SCH (14:30)
[2019-07-02] MEDS ORDERED: CEFEPIME HCL 1 GM VIAL IV SCH (14:30)
[2019-07-02 15:25] LABS: CREATINE KINASE MB 2.4 ng/mL (0-5.0)
[2019-07-02 15:52] LABS: ANION GAP 12.5 mmol/L (8-16); CALCIUM 8.5 mg/dL (8.4-10.2); CREATININE, SERUM 2.6 mg/dL (0.72-1.25); POTASSIUM 5.5 mmol/L (3.5-5.1)
[2019-07-02] MEDS ORDERED: INSULIN LISPRO 100 UNIT/1 ML 3ML VIAL SQ SCH ×2 (16:30)
--- NOTE | 2019-07-02 16:35 | Diagnostic Imaging Report ---
EXAM: Renal Ultrasound INDICATION: Acute on chronic renal failure. COMPARISON: CT abdomen/pelvis without contrast 04/25/2019. TECHNIQUE: Transverse and longitudinal images of the kidneys and bladder were obtained. FINDINGS: Right Kidney: Length: Measures 12.9 x 6.1 x 5.2 cm Appearance: Normal echogenicity. Collecting system: No hydronephrosis Stones: None Cyst/Mass: None Left Kidney: Length: Measures 12.1 x 6.2 x 4.8 cm Appearance: Normal echogenicity. Collecting system: No hydronephrosis Stones: None Cyst/Mass: None Bladder: Bladder is distended, with a volume of 623 cc. Bilateral ureteral jets are not seen. The prostate is not visualized. IMPRESSION: Unremarkable bilateral renal ultrasound. Distended bladder. Previously noted possible mass on noncontrast CT from 04/25/2019 in the right lower pole kidney is not visualized on this study. This could represent a contour abnormality. Follow-up nonurgent renal MRI (which could be performed without contrast in the setting of renal dysfunction) may be considered for further evaluation. Signed by: Dr. Yamel Guzman MD on 07/02/2019 4:31 PM
--- NOTE | 2019-07-02 17:03 | History and Physical ---
HISTORY OF PRESENT ILLNESS: A 68-year-old male with past medical history positive for chronic renal insufficiency, history of hypertension with chronic renal failure, history of coronary artery disease, history of peripheral vascular disease, history of left CVA with right hemiplegia, came with weakness. He was found to have hypotensive and renal insufficiency. IV fluids were given. He was found to have pneumonia also, so he is admitted to the hospital for IV fluids and also worsening renal failure and IV antibiotics for pneumonia. The patient is feeling better after the IV fluids were given. Also, he was found to have hyperkalemia, which was treated in the emergency room. REVIEW OF SYSTEMS: CARDIOVASCULAR: No chest pain or palpitation. RESPIRATORY: No shortness of breath. No cough. GASTROINTESTINAL: No nausea or vomiting. No diarrhea. GENITOURINARY: No frequency no dysuria. ALLERGIES: HE IS ALLERGIC TO IBUPROFEN. SOCIAL HISTORY: He does not smoke. He does not drink. PAST MEDICAL HISTORY: Coronary artery disease, status post stent placement, chronic renal failure. He was on dialysis three years ago, hypertension, peripheral vascular disease, left CVA with right hemiplegia. PHYSICAL EXAMINATION: VITAL SIGNS: Blood pressure 114/57, temperature 99.6, heart rate is 93 per minute, respiratory rate 20 per minute, oxygen saturation 99%. HEART: Showed regular rhythm. Normal S1, S2 sound. LUNGS: Clear bilaterally. ABDOMEN: Soft. EXTREMITIES: Show very cold right foot. Open wounds on the left foot. IMAGING DATA: Chest x-ray showed possible pneumonia. Basilar atelectasis in the right lung base. Blood culture has been done. The report is pending. IMPRESSION: 1. Episode of hypotension. 2. Acute on chronic renal failure stage 3. 3. Hyperkalemia. 4. Hypertension with hypertensive nephropathy. 5. Coronary artery disease, status post stent. 6. Peripheral vascular disease. 7. Left cerebrovascular accident with right hemiplegia. 8. Pneumonia. 9. Left foot wounds. 10. Uncontrolled diabetes mellitus type 2 with chronic renal insufficiency. PLAN OF TREATMENT: The patient received IV fluids. He received treatment for the hyperkalemia that he had in the emergency room with Kayexalate, sodium bicarbonate and insulin also. We are going to recheck the BMP today. We are going to continue the current medication regimen, which includes Zithromax 500 mg IV daily, cefepime 2 g IV twice a day, normal saline 100 mL an hour, continue aspirin 81 mg daily, Lipitor 10 mg daily, Plavix 75 mg daily, D50 IV push as needed for hypoglycemia. Continue Proscar 5 mg daily. Continue Humalog as per sliding scale. Continue diabetic renal diet. Continue Zofran 4 mg IV q.4 hours as needed for nausea and vomiting, Zoloft 50 mg daily. He received Kayexalate because of hyperkalemia. He received sodium bicarbonate. He is on Flomax 0.4 mg at bedtime, vitamin B12 1000 mcg daily, Lantus 35 units daily. MD OSCAR Swartz/MIGDALIA /[id number]
--- NOTE | 2019-07-02 18:24 | NUR ---
Patient arrived to unit at 1545. Dr. Fontaine, Dr. Campoverde and Dr. Grover's office notified of consults. Dr. Fontaine at bedside to evaluate patient. Dressings to L foot wound ordered, x ray's of bilateral feet ordered, MD to do debridement tomorrow morning (supplies placed at bedside). Dr. Luther notified of patients BMP results. MD ordered to recheck potassium level at 2200, if higher than 5.[address] Portillo called to clarify insulin sliding scale orders because insulin was ordered but no scale was selected. Orders put in for sliding scale per Dr. Portillo. Wet to dry dressing placed on L foot per Dr. Fontaine's orders. Will continue to monitor the patient.
--- NOTE | 2019-07-02 19:48 | History and Physical ---
ADDENDUM: We are also going to get a Podiatry consult with Dr. Keyshawn Fontaine due to the open wounds that he had on the medial aspect of the left foot. The patient also has severe peripheral vascular disease. MD OSCAR Swartz/MIGDALIA /[id number]
--- NOTE | 2019-07-02 19:51 | Diagnostic Imaging Report ---
Foot complete CPT code: 54031 Indication: Suspected infection ^Suspected infection ^[id number] ^1915 Technique: A.P., oblique and lateral views of the left foot obtained. Comparison: Foot x-rays 04/25/2019 Findings: There is a bandage at the medial aspect of the great toe. Calcaneus is intact with a small plantar spur. The midfoot is intact. No evidence of displaced fracture or dislocation involving any of the digits. No periosteal new bone formation or focal demineralization. There are extensive calcifications throughout the arterial structures. IMPRESSION: No radiographic evidence of osteomyelitis. Signed by: Dr. Corrine Adams MD on 07/02/2019 7:47 PM
--- NOTE | 2019-07-02 19:52 | Diagnostic Imaging Report ---
Foot complete CPT code: 53628 Indication: ^Suspected infection ^[id number] ^1915 Technique: A.P., oblique and lateral views of the right foot obtained. Comparison: None Findings: The area of pain or ulceration is not indicated or marked. Calcaneus is intact with a small posterior spur. The midfoot is intact. No evidence of displaced fracture or dislocation involving any of the digits. No focal demineralization or periosteal new bone formation. There are calcifications throughout the arterial structures. No radiopaque foreign bodies. IMPRESSION: No radiographic evidence of osteomyelitis. Signed by: Dr. Corrine Adams MD on 07/02/2019 7:49 PM
[2019-07-02] MEDS: TAMSULOSIN HCL 0.4 MG CAP PO SCH (20:50)
[2019-07-02] MEDS: ATORVASTATIN 10 MG TAB PO SCH (20:50)
[2019-07-02] MEDS: INSULIN LISPRO 100 UNIT/1 ML 3ML VIAL SQ SCH (20:58)
[2019-07-02 23:20] LABS: ANION GAP 12.2 mmol/L (8-16); CALCIUM 8.7 mg/dL (8.4-10.2); CREATININE, SERUM 2.34 mg/dL (0.72-1.25); POTASSIUM 5.2 mmol/L (3.5-5.1)
[2019-07-02 23:49] LABS: CREATINE KINASE MB 1.5 ng/mL (0-5.0)
[2019-07-03] VITALS (18 sets, daily range): BP systolic 116–142; BP diastolic 50–71
[2019-07-03] MEDS: SODIUM CHLORIDE 0.9% 1000ML 1,000 ML IV SCH ×3 (00:25→22:04)
[2019-07-03] MEDS: CEFEPIME 2 GM/NS 0.9% 100 ML 100 ML IV SCH ×2 (00:25→13:30)
--- NOTE | 2019-07-03 00:43 | Consultation ---
DATE OF CONSULTATION: 07/02/2019 SEISMIC PROSPECTING SUPERVISOR: Keyshawn Fontaine DPM REASON FOR CONSULTATION: Nonhealing ulceration with possible osteomyelitis to the left foot. HISTORY OF PRESENT ILLNESS: This is a pleasant 68-year-old male, who was seen at bedside, accompanied by son and spouse, who relates that he has had a nonhealing ulcer for approximately 7 months now with a history of insulin-dependent diabetes, hypertension, hypercholesteremia, congestive heart failure, and stroke suffered back in 2010. He is currently denying any history of fever, chills, nausea, or vomiting; was admitted because of hypotension, hypokalemia, anemia with kidney problems. PAST MEDICAL HISTORY: As described above, insulin-dependent diabetes x15+ years, hypertension, hypercholesteremia, congestive heart failure with stroke. PAST SURGICAL HISTORY: Remarkable for pacemaker placement, 2 heart stents in 2010, right hip surgery. ALLERGIES: TO BROCCOLI AND IBUPROFEN. SOCIAL HISTORY: Stopped smoking approximately 10 years ago. Used to smoke 2 packs a day. Used to do heavy drinking and even cocaine use, both stopped more than 5 to 10 years ago. FAMILY HISTORY: Remarkable for diabetes. CURRENT MEDICATIONS: Note listed in chart including IV cefepime. REVIEW OF SYSTEMS: CARDIAC: Denies any palpitations or arrhythmias at this time. RESPIRATORY: Denies any shortness of breath. Productive cough. GASTROINTESTINAL: Denies any diarrhea or constipation. GENITOURINARY: Denies any problems with voiding at this time. VITAL SIGNS: Afebrile, pulse rate 78, respirations 18, blood pressure 106/49, O2 saturation 99%. LABORATORY DATA: Labs noted as white blood cell count of 15.9, hemoglobin 8.3, hematocrit 24.9 with a platelet count of 199. Has an INR of 1.13 with a blood glucose of 139. Podiatric physical examination reveals the following: Vasculature, pedal pulses, of both the DP and PT are palpable more so to the dorsalis pedis and the PT bilaterally. Skin temperature is warm and cool to touch with the right foot being colder than the left. NEUROLOGIC: shows some loss of protective sensation when utilizing [place]-Sanjiv 5% monofilament wire. MUSCULOSKELETAL: Muscle mass to be symmetrical. Muscle strength to be 3 to 4/5 to all muscle groups. DERMATOLOGIC: Grade 4 ulcer of possible bone exposed of 1st metatarsal head medially. Foul smell present with the ulcer measuring more than 3 cm in diameter. ASSESSMENT: Possible osteomyelitis, left foot with a grade 4 ulceration, diabetic neuropathy with cellulitis. PLAN: Sharp excisional debridement will be done tomorrow at bedside. The patient and patient's family members were no guarantees or warranties can be given. We will continue IV antibiotics such as cefepime. We will start Santyl followed by diluted wet-to-dry Betadine today and deep cultures will be taken tomorrow after the debridement. If not responsive, may end up needing partial amputation of foot. PIOTR Redman/MIGDALIA /[id number]
[2019-07-03 05:40] LABS: BASOPHILS % 0.3 % (0.0-1.0); EOSINOPHILS # (AUTO) 0.2 (0.0-0.4); EOSINOPHILS % 1.3 % (0.0-6.0); HEMATOCRIT 22.5 % (38.2-49.6); HEMOGLOBIN 7.3 g/dL (14.0-18.0); LYMPHOCYTES # (AUTO) 1.8 (1.0-3.2); LYMPHOCYTES % 11.3 % (18.0-39.1); MEAN CORPUSCULAR HEMOGLOBIN 31.7 pg (28-32); MEAN CORPUSCULAR HGB CONC 32.4 g/dL (31-35); MEAN CORPUSCULAR VOLUME 97.8 fL (81-99); MONOCYTES # (AUTO) 0.6 (0.2-0.8); NEUTROPHILS # (AUTO) 12.9 (2.1-6.9); NEUTROPHILS % 82.6 % (38.7-80.0); PLATELET COUNT 179 x10e3/uL (140-360); RED CELL DISTRIBUTION WIDTH 12.9 % (11.7-14.4)
[2019-07-03 06:01] LABS: CREATINE KINASE MB 2.4 ng/mL (0-5.0)
[2019-07-03 06:08] LABS: ALBUMIN 2.4 g/dL (3.5-5.0); ALBUMIN/GLOBULIN RATIO 0.5 (0.8-2.0); ANION GAP 14.3 mmol/L (8-16); CALCIUM 8.8 mg/dL (8.4-10.2); CREATININE, SERUM 1.95 mg/dL (0.72-1.25); POTASSIUM 5.3 mmol/L (3.5-5.1)
[2019-07-03] MEDS: INSULIN LISPRO 100 UNIT/1 ML 3ML VIAL SQ SCH ×4 (07:30→21:00)
[2019-07-03] MEDS: COLLAGENASE OINTMENT 30 GM TUBE TP SCH (09:46)
[2019-07-03] MEDS: ASPIRIN 81 MG CHEW TAB PO SCH (09:46)
[2019-07-03] MEDS: FINASTERIDE 5 MG TAB PO SCH (09:46)
[2019-07-03] MEDS: CLOPIDOGREL BISULFATE 75 MG TAB PO SCH (09:46)
[2019-07-03] MEDS: SERTRALINE HCL 50 MG TAB PO SCH (09:46)
[2019-07-03] MEDS: CYANOCOBALAMIN 1,000 MCG TAB PO SCH (09:46)
[2019-07-03] MEDS: INSULIN GLARGINE 100 UNITS/ML VIAL SQ SCH (09:54)
--- NOTE | 2019-07-03 11:59 | NUR ---
Dr. Simpson paged for new patient consult
[2019-07-03 13:00] LABS: CREATINE KINASE 137 IU/L (30-200)
--- NOTE | 2019-07-03 13:37 | Progress Note ---
DATE: 07/03/2019 SUBJECTIVE: The patient at bedside. Denies any history of fever, chills, nausea, vomiting, shortness of breath, or problems voiding. OBJECTIVE: VITAL SIGNS: Afebrile, pulse rate 66, respirations 16, blood pressure 124/63, and O2 saturation 99%. EXTREMITIES: Ulceration to the 1st metatarsophalangeal joint of the left lower extremity tracking down to bone. Some foul smell present. X-rays were negative for any gas in the tissue or osteomyelitic changes at this time. Does have a protruding 1st metatarsal head secondary to hallux valgus deformity with swelling to the left great toe with a grade 3/4 ulceration, measuring more than 3 to 3.5 cm in diameter. ASSESSMENT: Grade 3 ulcer down to capsule and very close to bone with diabetic neuropathy and hallux valgus deformity. PLAN: After discussing the options, sharp excisional debridement of the ulcer was carried down to the capsule structure. Devitalized tissue sharply excised until good viable bleeding tissue was achieved. Deep cultures were taken for aerobic and anaerobic growth. We will continue local wound care with Santyl collagenase, followed by diluted wet-to-dry Betadine. Continue IV cefepime. Continue to let the foot demarcate before any definitive procedures performed. PIOTR Redman/MIGDALIA /[id number]
[2019-07-03 14:44] LABS: BASOPHILS % 0.3 % (0.0-1.0); EOSINOPHILS # (AUTO) 0.3 (0.0-0.4); EOSINOPHILS % 2.2 % (0.0-6.0); HEMATOCRIT 21.9 % (38.2-49.6); HEMOGLOBIN 7.2 g/dL (14.0-18.0); LYMPHOCYTES # (AUTO) 1.9 (1.0-3.2); LYMPHOCYTES % 15.8 % (18.0-39.1); MEAN CORPUSCULAR HEMOGLOBIN 32.4 pg (28-32); MEAN CORPUSCULAR HGB CONC 32.9 g/dL (31-35); MEAN CORPUSCULAR VOLUME 98.6 fL (81-99); MONOCYTES # (AUTO) 0.6 (0.2-0.8); NEUTROPHILS % 76.3 % (38.7-80.0); PLATELET COUNT 163 x10e3/uL (140-360); RED BLOOD COUNT 2.22 x10e6/uL (4.3-5.7); RED CELL DISTRIBUTION WIDTH 12.8 % (11.7-14.4)
--- NOTE | 2019-07-03 15:14 | NUR ---
68 Y/O MALE DIABETIC PATIENT LFT FOOT 1ST MET HEAD ULCERATION WITH OSTEO POST BEDSIDE DEBRIDEMENT DONE 07/03 LABS : WBC 15.5 , GLUCOSE 109 PENDING BLOOD AND WOUND CULTURE PATIENT ON CEFEPIME AND AZITHROMYCIN ASSESSMENT : LFT POST SURGICAL DRESSING REMOVED WITHOUT C/O PAIN OR SIGNS OF BLEEDING AT WOUND SITE [id number].5CM CLEAN RED WOUND BASE NED SKIN INTACT AND BLANCHABLE PALPABLE DP AND PT PULSES NO OTHER SKIN ALTERATIONS NOTED WITH COMPLETE SKIN ASSESSMENT DR GUTHRIE ORDER IN PLACE DAILY SANTYL AND DILUTED BETADINE LEFT 1ST MET HEAD COVER WITH 4X4 AND KERLIX SECURE WITH TAPE RECOMMENDATIONS : NURSING TO CONTINUE TO ASSESS DAILY AND PROTECT AND OFFLOAD NURSING TO MAINTAIN ALTERNATING PRESSURE MATTRESS NURSING TO MAINTAIN BILATERAL HEEL PROTECTORS WITH PILLOW SUSPENSION Addendum: 07/03/19 at 1533 by Brett Adkins RN Amended: Links added.
[2019-07-03] MEDS: AZITHROMYCIN 500MG/NS 250 ML 250 ML IV SCH (15:35)
--- NOTE | 2019-07-03 16:08 | Progress Note ---
DATE: Internal Medicine Progress Note SUBJECTIVE: The patient is doing better now. PHYSICAL EXAMINATION: VITAL SIGNS: Blood pressure 134/63, temperature 98.1, heart rate 63 per minute, respiratory rate 16 per minute, and oxygen saturation 99%. HEART: Showed regular rhythm. Normal S1, S2 sound. LUNGS: Clear bilaterally. ABDOMEN: Soft. EXTREMITIES: Showed decreased pulses in both feet, worse on the right than the left. An open area on the medial aspect of the left foot. LABORATORY DATA: On the BMP; sodium 136, potassium 5.3, chloride 108, CO2 19, BUN 39, creatinine 1.95, glucose 109. On the CBC; white blood count 15,500, hemoglobin 7.3, hematocrit 22.5, platelet count a 179,000. PT 15.1, INR 1.13, PTT 39.3. AST 12, ALT 7, total bilirubin 0.2, alkaline phosphatase 77. IMPRESSION: 1. Hyperkalemia, which is slowly resolving. 2. [id number] renal failure, stage 3 to 4. 3. Left foot wound. 4. Uncontrolled diabetes mellitus type 2 with chronic renal insufficiency. 5. Peripheral vascular disease. 6. Coronary artery disease. 7. Anemia of chronic disease secondary to chronic renal insufficiency. PLAN OF TREATMENT: Dr. Fontaine did a debridement. Dr. Donahue, he is a Podiatry, who saw the patient before. We are going to switch the service to Podiatry, consulted with him. Dr. Grover seeing him from the Nephrology point of view, to consider renal insufficiency. Dr. Simpson is going to see him from the Cardiology point of view. On the rest of the treatment: 1. Continue Zithromax 500 g IV once a day. 2. Cefepime 1 g IV twice a day. 3. Continue normal saline 100 mL an hour. 4. BMP tomorrow. 5. Aspirin 81 mg daily. 6. Zofran 4 mg IV q.4 hours as needed for nausea and vomiting. 7. Vitamin B12 1000 mcg daily. 8. Lipitor 10 mg daily. 9. Zoloft 50 mg daily. 10. Continue with Lantus 35 units at bedtime. 11. Finasteride 5 mg daily. 12. Flomax 0.4 mg daily. 13. Collagenase ointment daily. 14. Plavix 75 mg daily. 15. Continue monitoring blood sugar before meals and at bedtime. 16. Continue renal diabetic diet. We are going to also do an MRI of the foot to rule out osteomyelitis. MD OSCAR Swartz/MODL /[id number]
[2019-07-03] MEDS: TAMSULOSIN HCL 0.4 MG CAP PO SCH (21:18)
[2019-07-03] MEDS: ATORVASTATIN 10 MG TAB PO SCH (21:19)
--- NOTE | 2019-07-03 23:05 | NUR ---
Patient transported via bed to room #295 on telemetry. VS stable-HR 73 paced, SpO2 100 on RA, RR 18, BP 128/58. NS @ 100 ml/hr. Pt resting comfortably, bedside report given to Ame as well as pt medications/wound care supplies.
--- NOTE | 2019-07-03 23:25 | Consultation ---
DATE OF CONSULTATION: 07/03/2019 INFECTIOUS DISEASE CONSULT REASON FOR CONSULTATION: Left foot wound infection. Thank you Dr. Portillo for asking me to see this patient. HISTORY OF PRESENT ILLNESS: The patient is a 68-year-old man, who was admitted with hypotension (blood pressure 67/40), which improved with intravenous fluid rehydration. The patient presented to the emergency department with lightheadedness and generalized weakness. He denies fever, chills, cough, shortness of breath, chest pain, nausea, vomiting, diarrhea, abdominal pain, and dysuria. He has chronic urine incontinence and wears a diaper at home. Also, he has a left foot ulcer, which has gotten worse. The patient is unable to provide detailed information regarding the onset and progression of the left foot ulcer. In the emergency department, he was noted to have temperature of 99.6 degrees Fahrenheit, pulse rate 93, respiratory rate 20, blood pressure 145/59 and oxygen saturation 98% on room air. Initial laboratory studies showed blood leukocyte count of 15,910 with 87.6% neutrophils, BUN 49, creatinine 2.81. Chest x-ray showed low lung volumes with patchy opacity at the right lung base. PAST MEDICAL HISTORY: Diabetes mellitus type 2, hypertension, hyperlipidemia, coronary artery disease status post stenting, peripheral arterial disease, chronic kidney disease, acute kidney injury which required hemodialysis, cerebrovascular accident with residual right hemiplegia, blind in the left eye, and benign prostatic hyperplasia. ALLERGIES: IBUPROFEN, WHICH CAUSES HIVES. HOWEVER, THE PATIENT TAKES ASPIRIN WITHOUT REACTION. MEDICATIONS: See MAR. The current antibiotics are cefepime 1 g IV piggyback q.12 hours and azithromycin 500 mg IV piggyback q.24 hours. IMMUNIZATION: The patient received pneumococcal vaccination in the past. Also, he received tetanus-diphtheria vaccination within 10 years. FAMILY HISTORY: Significant for diabetes mellitus. SOCIAL HISTORY: He quit smoking cigarettes about 10 years ago. He used to smoke 2 packs of cigarettes a day. Also, he quit drinking alcohol. He used cocaine during his teenage and early adulthood and quit many years ago. REVIEW OF SYSTEMS: As per history of present illness. The patient has occasional cough, but denies shortness of breath and chest pain. Also, there is no nausea, vomiting, diarrhea, abdominal pain, and dysuria. PHYSICAL EXAMINATION: GENERAL: No acute distress. VITAL SIGNS: T-max 98.8, pulse rate 80, respiratory rate 13, blood pressure 115/50, weight 199 pounds. HEENT: Normocephalic. There is no icterus or injection of conjunctivae. There is no ear or nasal discharge. Moist oral mucosa. No pharyngeal erythema or exudate. NECK: Supple. No meningismus. LUNGS: Good air entry bilaterally. HEART: Normal S1, S2. Paced rhythm. EXTREMITIES: There is severe wasting of the muscles of the upper and lower extremities with contracture of the hands. The dorsalis pedis and posterior tibial pulses are difficult to palpate in both feet. SKIN: There is a large debrided ulcer over the medial aspects of the left first metatarsophalangeal joint. DE ICER ELEMENT WINDER: Awake, alert, oriented to person, place, and time. Right hemiplegia. There is decreased sensation to monofilament test of the feet. LABORATORY AND DIAGNOSTICS: WBC 11,730, hemoglobin 7.2, platelets 163,000, neutrophils 76.3, lymphocytes 15.8, monocytes 5, eosinophils 2.2, and basophils 0.3. BUN 39, creatinine 1.95, blood glucose 154. Wound culture is growing Gram-negative rods. Urine culture showed no growth. Blood Gram stain yielded Gram-positive cocci in clusters. Renal ultrasound was unremarkable. Left foot x-ray showed no evidence of osteomyelitis and lower extremity arterial ultrasound is pending. IMPRESSION: 1. Probable sepsis present on admission. The source may include pneumonia and diabetic foot infection. 2. Positive blood culture due to Gram-positive cocci in clusters, may most likely be skin contamination, although bacteremia cannot be totally excluded at this point. 3. Diabetic foot infection. 4. Peripheral arterial disease. 5. Acute kidney injury on chronic kidney disease, improving. 6. Coronary artery disease. 7. Benign prostatic hyperplasia. 8. Late effect of stroke. PLAN: 1. Await wound and blood isolates identification and sensitivity. 2. Continue current antibiotics. 3. Podiatry input has been noted. MD CHIDI George/MIGDALIA /[id number]
--- NOTE | 2019-07-03 23:35 | Consultation ---
DATE OF CONSULTATION: REASON FOR CONSULT: Hyperkalemia and acute renal failure. HISTORY OF PRESENT ILLNESS: This is a 68-year-old male with positive history of chronic kidney disease and hypertension, he is status post left CVA with right hemiplegia and lives with his brother, who came in after not feeling well and the patient was found to have worsening renal function and pneumonia. ALLERGIES: IBUPROFEN. SOCIAL HISTORY: No smoking. No alcohol. No drugs. PAST MEDICAL HISTORY: 1. Coronary artery disease. 2. Chronic kidney failure with a baseline creatinine of 1.43 in April 2019. The patient was CKD 3. 3. Previous history of dialysis three years ago. 4. Left CVA with right hemiplegia. PHYSICAL EXAMINATION: GENERAL: Alert, following commands. HEENT: His pupils are reactive to light and accommodation. NECK: No JVD. No bruit. LUNGS: Rhonchi. No rales. HEART: Regular rate and rhythm. No S3, no S4. ABDOMEN: Nontender and nondistended. No hepatomegaly or splenomegaly. EXTREMITIES: No clubbing, no cyanosis. Positive left foot wound. NEUROLOGICAL: Status post CVA with right hemiplegia. LABORATORY DATA: Chest x-ray, low lung volumes with patchy opacity at right lung base, which may reflect atelectasis or early pneumonia. Foot x-ray, no evidence of osteomyelitis. Sodium 136, potassium 5.3, chloride 108, BUN 39, creatinine 1.95, glucose 109, calcium 8.8, AST 12, ALT 7, albumin 2.4. White count improved at 11.7 from 15.9, hemoglobin 7.2, down from 8.3. Urinalysis, trace protein, leukocyte esterase negative. CURRENT MEDICATIONS: Include azithromycin, cefepime, insulin, vitamin B12, Zoloft, Proscar, Plavix, aspirin, tamsulosin, and atorvastatin. ASSESSMENT AND PLAN: 1. Acute renal failure, on chronic kidney disease stage 3, currently improving with IV fluids. 2. Hyperkalemia, which resolved with medical treatment and we did follow it closely overnight. Currently, he is much better. 3. Hypertension, currently stable. 4. Coronary artery disease, stable. 5. Severe volume depletion, currently improved with IV fluids and IV antibiotics. 6. Left foot wound, currently status post procedure and on IV antibiotics. 7. Type 2 diabetes mellitus, uncontrolled: Continue current sliding scale. 8. Urinary retention. The patient is on Flomax. 9. Home medications were not available, so in short, acute kidney failure, most likely secondary to volume depletion plus possibly medications, on chronic kidney disease stage 3 with hyperkalemia, currently improving overall. We will check labs in a.m. we did also order a renal ultrasound that was unremarkable. Gualberto Botello MD MA/MIGDALIA /[id number]
[2019-07-04] VITALS (8 sets, daily range): BP systolic 118–156; BP diastolic 53–75
--- NOTE | 2019-07-04 00:11 | Consultation ---
DATE OF CONSULTATION: 07/03/2019 Cardiology Consultation REQUESTING PHYSICIAN: Bill Portillo MD. REASON FOR CONSULTATION: Coronary artery disease. HISTORY OF PRESENT ILLNESS: This is a 68-year-old man with history of chronic systolic heart failure status post ICD, hypertension, hyperlipidemia, peripheral arterial disease, coronary artery disease, chronic kidney disease, diabetes mellitus, and history of CVA with residual right-sided weakness, who presented with complaints of dizziness. The patient reports he had been dizzy for the last couple days and therefore presented to the [facility] ER for evaluation. He was found to have hypotension and acute kidney injury and was started on IV fluids. He was diagnosed with pneumonia and started on IV antibiotics. Data Communications Analyst is consulted to manage his cardiac disease. The patient denies any chest pain, shortness of breath, palpitations, edema, orthopnea, or PND. He does have a left lower extremity wound for the last 3 months, but denies any claudication, fever or chills. Of note, the patient had peripheral angiogram performed by Dr. Simpson in April without evidence of occlusive peripheral arterial disease. REVIEW OF SYSTEMS: Negative except as per HPI. PAST MEDICAL HISTORY: 1. Chronic systolic heart failure, status post ICD, EF 30%. 2. Coronary artery disease and peripheral arterial disease. 3. Hypertension, hyperlipidemia, diabetes mellitus. 4. History of CVA with residual right-sided weakness. 5. Chronic kidney disease. PAST SURGICAL HISTORY: Tonsillectomy. ALLERGIES: PLEASE SEE EMR. MEDICATIONS: Please see medication list. SOCIAL HISTORY: He quit smoking 25 years ago. Prior alcohol use. No illicit drugs. FAMILY HISTORY: Denies. PHYSICAL EXAMINATION: VITAL SIGNS: Temperature 98.5 degrees, pulse 63, respiratory rate 16, blood pressure 127/66, oxygen saturation 100% on room air. GENERAL: Awake, alert, in no acute distress. HEENT: Normocephalic, atraumatic. Pupils equal. No scleral icterus. NECK: Supple. No thyromegaly or cervical lymphadenopathy. No carotid bruits. LUNGS: Clear to auscultation bilaterally. No wheezes or crackles. CARDIOVASCULAR: Normal rate, regular rhythm. Normal S1, S2. ABDOMEN: Soft, nontender. EXTREMITIES: Dressing is present on the left foot. Right leg is cooler to palpation than the left. LABORATORY DATA: Sodium 136, potassium 5.3, chloride 108, CO2 of 19, BUN 39, and creatinine 1.95. Troponin less than 0.001. WBC 11.73, hemoglobin 7.2, hematocrit 21.9, platelets 163. IMPRESSION: 1. Acute kidney injury. 2. Sepsis secondary to pneumonia versus left lower extremity wound. 3. Chronic systolic heart failure status post ICD. 4. Coronary artery disease and peripheral arterial disease. 5. Hypertension, hyperlipidemia, diabetes mellitus, history of cerebrovascular accident with residual right-sided weakness. 6. Monitor the patient on telemetry. Monitor volume status closely. Creatinine is improving. Continue to hold antihypertensive therapy at this time until blood pressure stabilizes. Continue aspirin, Plavix as well as statin in the meantime. Bilateral lower extremity arterial Doppler has been ordered for further evaluation. However, the patient had recent peripheral angiogram without obstructive peripheral arterial disease as well as the patient's last echo does show LVEF 30% to 35% with impaired relaxation. Monitor respiratory status closely. We will need to stop IV fluids once creatinine normalizes possibly by tomorrow. Antibiotics per primary service. No further cardiac evaluation is indicated at this time. Thank you for this consult. We will continue to follow. Chelsey Castillo MD ABS/MODL /[id number]
[2019-07-04 06:10] LABS: BASOPHILS % 0.3 % (0.0-1.0); EOSINOPHILS # (AUTO) 0.2 (0.0-0.4); EOSINOPHILS % 2.4 % (0.0-6.0); HEMATOCRIT 21.8 % (38.2-49.6); HEMOGLOBIN 7.2 g/dL (14.0-18.0); LYMPHOCYTES # (AUTO) 1.7 (1.0-3.2); LYMPHOCYTES % 18.2 % (18.0-39.1); MEAN CORPUSCULAR HEMOGLOBIN 32.7 pg (28-32); MEAN CORPUSCULAR VOLUME 99.1 fL (81-99); MONOCYTES # (AUTO) 0.5 (0.2-0.8); MONOCYTES % 5.1 % (4.4-11.3); NEUTROPHILS # (AUTO) 6.7 (2.1-6.9); NEUTROPHILS % 73.7 % (38.7-80.0); PLATELET COUNT 173 x10e3/uL (140-360); RED CELL DISTRIBUTION WIDTH 12.8 % (11.7-14.4)
[2019-07-04] MEDS: SODIUM CHLORIDE 0.9% 1000ML 1,000 ML IV SCH (06:24)
[2019-07-04 06:44] LABS: ANION GAP 13.3 mmol/L (8-16); CREATININE, SERUM 1.44 mg/dL (0.72-1.25); POTASSIUM 5.3 mmol/L (3.5-5.1)
[2019-07-04] MEDS: INSULIN LISPRO 100 UNIT/1 ML 3ML VIAL SQ SCH ×4 (07:30→21:00)
[2019-07-04] MEDS: FINASTERIDE 5 MG TAB PO SCH (09:13)
[2019-07-04] MEDS: CLOPIDOGREL BISULFATE 75 MG TAB PO SCH (09:13)
[2019-07-04] MEDS: ASPIRIN 81 MG CHEW TAB PO SCH (09:13)
[2019-07-04] MEDS: SERTRALINE HCL 50 MG TAB PO SCH (09:14)
[2019-07-04] MEDS: CYANOCOBALAMIN 1,000 MCG TAB PO SCH (09:14)
[2019-07-04] MEDS: COLLAGENASE OINTMENT 30 GM TUBE TP SCH (09:19)
[2019-07-04] MEDS: INSULIN GLARGINE 100 UNITS/ML VIAL SQ SCH (09:19)
--- NOTE | 2019-07-04 12:45 | Consultation ---
DATE OF CONSULTATION: 07/04/2019 HISTORY OF PRESENTING ILLNESS: This is a 68-year-old male with past medical history of type 2 diabetes, peripheral neuropathy, coronary artery disease, peripheral vascular disease, chronic renal insufficiency, and CVA with right-sided hemiplegia, he was admitted after being hypotensive and renally insufficient as well as pneumonia. He was in the ICU for two days and then transferred to the [facility] surgical unit. During his course, he received IV antibiotics and is feeling better today. Podiatry is being consulted because of a left foot ulceration. This patient is well known to me from previous visits in the office. During his hospital course, Dr. Fontaine was consulted, who performed a bedside debridement as well as obtained deep wound cultures. I have been seeing this patient in the office for approximately two months and doing periodic debridements as well as the same till with saline wet-to-dry dressing changes. There has been a minimal improvement over the past two months of local wound care. Prior to seeing me, the patient [facility] with multiple different treatment modalities including Medihoney and skin grafting. The wound has been open for approximately eight months. The patient was admitted here in April where an MRI was ordered but could not be obtained due to pacemaker, so a bone scan was ordered, which was negative for osteomyelitis at that time. So, a local wound care was continued. The wound has now been open for eight months and continues to worsen. The patient currently relates to feeling improved. Denies fever, chills, chest pain, or shortness of breath. The patient also was sent to Dr. Simpson for angiogram and angioplasty within the past two months and no intervention was performed at that time. PAST MEDICAL HISTORY: Type 2 diabetes, peripheral neuropathy, coronary artery disease, chronic renal failure, hypertension, peripheral vascular disease, CVA. ALLERGIES: IBUPROFEN. SOCIAL HISTORY: Denies smoking, denies drinking, denies any illicit drug usage. REVIEW OF SYSTEMS: The patient currently denies nausea, vomiting, fever, chills, chest pain, or shortness of breath. PHYSICAL EXAMINATION: GENERAL: Alert and oriented x3, in no apparent distress. VITAL SIGNS: Today temperature 96.6, heart rate 70, respiratory rate 18, blood pressure 156/68, pulse ox is 98% on room air. PROBLEM FOCUSED LOWER EXTREMITY PHYSICAL EXAM: VASCULAR: Dorsalis pedis pulse is faintly palpable to the left lower extremity. Posterior tibial pulse is not palpable. Capillary refill time is approximately 4 to 5 seconds to all digits. Moderate edema and erythema are noted to the left 1st metatarsal head extending into the left hallux. NEUROLOGICAL: Sensation is absent to light touch bilateral. MUSCULOSKELETAL: No pain on palpation is noted to the ulceration site. DERMATOLOGIC: A deep stage IV probing ulceration is noted to the medial aspect of the 1st metatarsophalangeal joint and a 2nd ulcer is noted to the distal aspect of the hallux. Upon exploration of the wound, it does appear to be probing deep to the capsule and bone. Upon moving the joint up and down, joint fluid and purulence is noted to the metatarsophalangeal joint. LABORATORY DATA: White blood cell count is 9.16, hemoglobin 7.2, hematocrit 21.8, and platelet count is 173. Sodium 138, potassium 5.3, chloride of 113, BUN 28, creatinine 1.4. MICROBIOLOGY: Wound culture Pseudomonas. ASSESSMENT: 1. Left foot grade 4 ulceration with probable osteomyelitis. 2. Type 2 diabetes with neuropathy. 3. Peripheral vascular disease. PLAN: The patient was seen and evaluated. Discussed condition and treatment options with the patient in detail. At this point, would recommend continuing IV antibiotics per wound cultures with cefepime as well as daily Santyl with saline wet-to-dry dressing changes. I had a discussion with patient about possible partial 1st ray amputation and transferring to SNF for LTAC for long-term IV antibiotics, wound care as well as postoperative monitoring. We will discuss with the patient's family. Arterial Dopplers have been ordered to determine if anything can be done to improve circulation to the left foot prior to surgical procedure. The Podiatry Service will continue to monitor as an inpatient. PIOTR Jang/MIGDALIA /[id number]
[2019-07-04] MEDS: CEFEPIME 2 GM/NS 0.9% 100 ML 100 ML IV SCH ×2 (13:00)
[2019-07-04] MEDS: AZITHROMYCIN 500MG/NS 250 ML 250 ML IV SCH (15:00)
--- NOTE | 2019-07-04 16:30 | Progress Note ---
DATE: Internal Medicine Progress Note SUBJECTIVE: The patient is sleeping comfortably. PHYSICAL EXAMINATION: HEART: Showed regular rhythm. Normal S1 and S2 sound. LUNGS: Clear bilaterally. ABDOMEN: Soft. EXTREMITIES: Show open wound on the medial aspect of the left foot. VITAL SIGNS: Blood pressure 138/67, temperature 96.9, heart rate 64 per minute, respiratory rate 18 per minute, and oxygen saturation 98%. LABORATORY DATA: On the lab work we have BMP; sodium 138, potassium 5.3, chloride 113, CO2 17, BUN 28, creatinine 1.44, and glucose 96. White blood count 9.16, hemoglobin 7.2, hematocrit 21.8, and platelet count 173,000. PT 15.1, INR 1.13, and PTT 39.3. AST 12, ALT 7, total bilirubin 0.2, and alkaline phosphatase 77. FINAL IMPRESSION: 1. Episode of hyperkalemia, which is slowly resolving. 2. Mumpd-ln-zcpoviq renal failure, stage 3. 3. Left foot wound. 4. 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 5. Severe peripheral vascular disease, status post bypass. 6. History of coronary artery disease. 7. Anemia of chronic disease secondary to chronic renal failure. PLAN OF TREATMENT: Continue azithromycin 250 mg IV once a day and cefepime 2 g IV twice a day. Continue with aspirin 81 mg daily, vitamin B12 1000 mcg daily, Zofran 4 mg IV q.4 hours as needed, Lipitor 10 mg daily, sertraline 50 mg daily, Lantus 35 units at bedtime, Proscar 5 mg daily, Flomax 0.4 mg daily, collagenase ointment daily, and Plavix 75 mg daily. Continue monitoring blood sugar before meals and at bedtime. The patient going to be transferred to senior living facility once accepted pending consultants approval. We are going to do a CBC and BMP tomorrow on diagnosis of anemia of chronic disease. MD OSCAR Swartz/MIGDALIA /[id number]
[2019-07-04 16:45] LABS: CALCIUM 8.8 mg/dL (8.4-10.2); CREATININE, SERUM 1.33 mg/dL (0.72-1.25)
--- NOTE | 2019-07-04 19:15 | NUR ---
Completed BS nursing report with morning nurse. Pt alert to name. Lying in bed HOB 30 degrees. Denies pain at this time. No s/s of pain noted. Call rosenthal within reach. Bed low and locked. Will continue to monitor
[2019-07-04] MEDS: ATORVASTATIN 10 MG TAB PO SCH (21:00)
[2019-07-04] MEDS: TAMSULOSIN HCL 0.4 MG CAP PO SCH (21:00)
[2019-07-05] VITALS (8 sets, daily range): BP systolic 109–135; BP diastolic 55–64
[2019-07-05] MEDS: CEFEPIME 2 GM/NS 0.9% 100 ML 100 ML IV SCH ×3 (00:35→23:54)
--- NOTE | 2019-07-05 01:03 | Progress Note ---
DATE: 07/04/2019 Cardiology Progress Note SUBJECTIVE: The patient denies chest pain or shortness of breath. Denies any dizziness. OBJECTIVE: VITAL SIGNS: Temperature 97.3 degrees, pulse 67, respiratory rate 18, blood pressure 150/75, oxygen saturation 98% on room air. GENERAL: Awake, alert, in no acute distress. LUNGS: Clear to auscultation bilaterally. No wheeze or crackles. CARDIOVASCULAR: Normal rate, regular rhythm. No murmur. Normal S1, S2. ABDOMEN: Soft, nontender. EXTREMITIES: Dressing present on the left foot. CARDIAC MEDICATIONS: Atorvastatin 10 mg p.o. at bedtime, Plavix 75 mg p.o. daily, aspirin 81 mg p.o. daily. LABORATORY DATA: WBC 9.16, hemoglobin 7.2, hematocrit 21.8, platelets 173. Sodium 136, potassium 5, chloride 110, CO2 of 18, BUN 26, creatinine 1.33. TELEMETRY: V paced. IMPRESSION: 1. Acute kidney injury, improving. 2. Sepsis secondary to pneumonia versus left lower extremity wound. 3. Chronic systolic heart failure, status post ICD. 4. Coronary artery disease. 5. Peripheral artery disease. 6. Hypertension. 7. Hyperlipidemia. 8. Diabetes mellitus. 9. History of cerebrovascular accident with residual right-sided weakness. RECOMMENDATIONS: Monitor the patient on telemetry. Watch volume status closely. Creatinine is improving with IV fluids. The patient's blood pressure has improved. If blood pressure remains stable and creatinine stabilized, we will resume home lisinopril. The patient had recent peripheral angiogram without obstructive peripheral arterial disease. Bilateral lower extremity arterial Doppler, however, did suggest infrapopliteal peripheral arterial disease. Monitor wound healing. Continue IV antibiotics per primary service. No further cardiac evaluation is indicated at this time. Thank you for this consult. We will continue to follow. Chelsey Castillo MD ABS/MODL /[id number]
[2019-07-05 06:17] LABS: BASOPHILS % 0.2 % (0.0-1.0); EOSINOPHILS # (AUTO) 0.1 (0.0-0.4); HEMATOCRIT 24.6 % (38.2-49.6); HEMOGLOBIN 7.9 g/dL (14.0-18.0); LYMPHOCYTES # (AUTO) 1.5 (1.0-3.2); LYMPHOCYTES % 17.9 % (18.0-39.1); MEAN CORPUSCULAR HGB CONC 32.1 g/dL (31-35); MEAN CORPUSCULAR VOLUME 99.6 fL (81-99); MONOCYTES # (AUTO) 0.4 (0.2-0.8); MONOCYTES % 5.3 % (4.4-11.3); NEUTROPHILS # (AUTO) 6.1 (2.1-6.9); NEUTROPHILS % 75.1 % (38.7-80.0); PLATELET COUNT 189 x10e3/uL (140-360); RED BLOOD COUNT 2.47 x10e6/uL (4.3-5.7); RED CELL DISTRIBUTION WIDTH 12.7 % (11.7-14.4)
--- NOTE | 2019-07-05 06:38 | NUR ---
Pt lying in bed with eyes closed, RR even unlabored 18. No s/s of pain or discomfort.
[2019-07-05 06:39] LABS: ANION GAP 14.3 mmol/L (8-16); CALCIUM 9.2 mg/dL (8.4-10.2); CREATININE, SERUM 1.37 mg/dL (0.72-1.25); POTASSIUM 5.3 mmol/L (3.5-5.1)
[2019-07-05] MEDS: INSULIN LISPRO 100 UNIT/1 ML 3ML VIAL SQ SCH ×5 (07:30→20:23)
[2019-07-05] MEDS ORDERED: ONDANSETRON HCL 4 MG ORAL DISINTEGRATING TAB PO PRN (08:45)
[2019-07-05] MEDS: INSULIN GLARGINE 100 UNITS/ML VIAL SQ SCH (09:00)
[2019-07-05] MEDS: FINASTERIDE 5 MG TAB PO SCH (09:24)
[2019-07-05] MEDS: CLOPIDOGREL BISULFATE 75 MG TAB PO SCH (09:24)
[2019-07-05] MEDS: SERTRALINE HCL 50 MG TAB PO SCH (09:24)
[2019-07-05] MEDS: ASPIRIN 81 MG CHEW TAB PO SCH (09:24)
[2019-07-05] MEDS: CYANOCOBALAMIN 1,000 MCG TAB PO SCH (09:24)
[2019-07-05] MEDS ORDERED: SOD POLYSTYRENE SULFONATE SUSP 15 GM/60 ML BTL PO ONE (11:00)
[2019-07-05] MEDS: SODIUM BICARBONATE 650 MG TAB PO SCH (12:29)
--- NOTE | 2019-07-05 13:06 | NUR ---
Called Dr. Donahue per patient's family's request. Patient's family stated they wanted to speak to Dr. Donahue regarding their decision about the surgery. Gave Dr. Donahue patient's family's phone number.
--- NOTE | 2019-07-05 14:32 | Progress Note ---
DATE: Internal Medicine Progress Note SUBJECTIVE: The patient is doing well. He is going to undergo an amputation on left 1st and 2nd toes tomorrow. PHYSICAL EXAMINATION: VITAL SIGNS: Blood pressure show 116/63, temperature 97.5, heart rate 68 per minute, respiratory rate is 20 per minute, ox saturation of 100%. HEART: Showed regular rhythm. Normal S1, S2 sound. LUNGS: Clear bilaterally. ABDOMEN: Soft. EXTREMITIES: Showed open wound on the medial aspect of the left foot. LABORATORY DATA: BMP showed sodium 139, potassium 5.3, chloride 114, CO2 16, BUN 27, creatinine 1.37, glucose 99. On the CBC; white blood count 8.10, hemoglobin 7.9, hematocrit 24.6, platelet count 189,000. PT 15.1, INR 1.13, PTT 39.3. AST 12, ALT 7, total bilirubin 0.2, alkaline phosphatase 77, blood sugar 172. The patient was given Kayexalate by Dr. Grover, body cleaner. BMP has been ordered for tomorrow. FINAL IMPRESSION: 1. Left foot wound infection. 2. Pneumonia. 3. Sepsis. 4. Diabetic foot. 5. Dyjqr-[id number] renal failure stage 3. 6. Uncontrolled diabetes mellitus type 2 with chronic renal insufficiency. 7. Anemia of chronic disease secondary to chronic renal failure. PLAN OF TREATMENT: We are going to continue Zithromax 250 mg IV daily, cefepime 2 g IV twice a day, aspirin 81 mg daily, Lipitor 10 mg daily, Flomax 0.4 mg at bedtime, collagenase ointment daily, finasteride 5 mg daily, D50 IV push as needed for hypoglycemia. Continue monitoring blood sugar before meals and at bedtime,. Continue Plavix 75 mg daily, vitamin B12 1000 mcg daily, Zofran 4 mg IV every 4 hours as needed for nausea and vomiting, Zoloft 50 mg daily, and Lantus 35 units at bedtime. The patient is going to undergo amputation of the left 1st and 2nd toes also. He also has a history of peripheral vascular disease. MD OSCAR Swartz/MIGDALIA /[id number]
--- NOTE | 2019-07-05 14:52 | NUR ---
PT SIGNED CHOICE FOR ELISA [employer]OTHER AND PT AGREE THAT PT WILL NEED MARKETING EFFECTIVENESS MANAGER AFTER PLACEMENT AND NEED ASSISTANCE WITH GETTING MEDICAID PENDING FOR ALF GOAL. FAXED CLINICALS
[2019-07-05] MEDS: COLLAGENASE OINTMENT 30 GM TUBE TP SCH (15:24)
[2019-07-05] MEDS: AZITHROMYCIN 500MG/NS 250 ML 250 ML IV SCH (15:24)
[2019-07-05] MEDS: CARVEDILOL 3.125 MG TAB PO SCH (16:32)
--- NOTE | 2019-07-05 16:37 | Progress Note ---
DATE: 07/05/2019 SUBJECTIVE: This is a 68-year-old male with past medical history of type 2 diabetes, peripheral neuropathy, coronary artery disease, peripheral vascular disease, chronic renal insufficiency, and stroke, who was admitted 3 days ago for renal insufficiency, pneumonia, and sepsis. Podiatry has been following for a left foot wound. The patient was seen at the bedside this morning and appeared to be resting comfortably. Denies any nausea, vomiting, fever, chills, chest pain, or shortness of breath. No acute issues overnight. OBJECTIVE: VITAL SIGNS: Today, temperature is 97.5, heart rate 68, respiratory rate 20, blood pressure 116/63, and pulse ox is 100% on room air. PROBLEM FOCUSED LOWER EXTREMITY: VASCULAR: Dorsalis pedis pulse is faintly palpable to the left lower extremity. Posterior tibial pulses nonpalpable. Capillary refill time is 4 to 5 seconds in all digits. Moderate edema and erythema noted to the left 1st metatarsal head and to the left hallux. NEUROLOGICAL: Sensation is absent to light touch bilateral. MUSCULOSKELETAL: Negative pain on palpation is noted to the ulceration site. DERMATOLOGICAL: Deep stage IV probing ulceration is noted to the medial aspect of 1st metatarsal joint. The 2nd ulcer is noted to the distal aspect of the hallux. Again, the wound does probe deep to the capsule and bone. Upon moving the joint up and down, the joint fluid and purulence is noted. LABORATORY DATA: White blood cell count is 8.10, hemoglobin 7.9, hematocrit 24.6, and platelet count is 189. Sodium 139, potassium 5.3, chloride 114, CO2 of 16, BUN 27, creatinine 1.37. IMAGING: Arterial Dopplers bilateral reveal severe peripheral vascular disease, bilateral. MICROBIOLOGY: Wound culture to the foot is Pseudomonas. Blood culture is coagulase negative Staphylococcus. ASSESSMENT: 1. Left foot grade 4 ulceration with probable osteomyelitis. 2. Type 2 diabetes peripheral neuropathy. 3. Peripheral vascular disease. 4. Chronic renal insufficiency. PLAN: The patient was seen and evaluated, discussed condition and treatment options with the patient in detail. At this point, a lengthy conversation was had with the patient. The patient's brother and the patient's family about the prognosis of the left foot wound. The patient was seen by Cardiology and no intervention is recommended at this time. The patient has poor circulation to the left lower extremity. I would recommend a partial 1st ray amputation. At this point, in light of the wound, that has been open for more than 8 months, which show no progress over the last 2 months. Concern for a deeper infection and sepsis, and recurrent visits to the hospital were mentioned. We will plan for a partial 1st ray amputation of the left foot tomorrow, 07/06/2019. Discussed with the patient, the patient's family that no guarantees were given about wound healing. The patient is high risk for a more proximal level amputation due to poor circulation. Long-term plan after surgery would include transferring to a long-term acute care facility for IV antibiotics, wound care, and possible hyperbaric oxygen. The Podiatry Service will continue to monitor as an inpatient. The patient will be placed n.p.o. after midnight tonight. His Plavix dose will be held until after the surgery and orders for a consent were placed. PIOTR Jang /[id number]
--- NOTE | 2019-07-05 17:07 | Progress Note ---
DATE: 07/05/2019 Cardiology Progress Note SUBJECTIVE: The patient denies chest pain or shortness of breath. OBJECTIVE: VITAL SIGNS: Temperature 97.5 degrees, pulse 68, respiratory rate 20, blood pressure 116/62, and oxygen saturation 100% on room air. GENERAL: Awake, alert, no acute distress. LUNGS: Clear to auscultation bilaterally. No wheezes or crackles. CARDIOVASCULAR: Normal rate. Regular rhythm. No murmur. Normal S1, S2. ABDOMEN: Soft, nontender. EXTREMITIES: Dressing present on the left foot. CARDIAC MEDICATIONS: 1. Aspirin 81 mg p.o. daily. 2. Atorvastatin 10 mg p.o. at bedtime. LABORATORY DATA: WBC 8.1, hemoglobin 7.9, hematocrit 24.6, platelets 189. Sodium 139, potassium 5.3, chloride 114, CO2 is 16, BUN 27, and creatinine 1.37. TELEMETRY: Normal sinus rhythm. IMPRESSION: 1. Acute kidney injury, improved. 2. Sepsis secondary to pneumonia versus left lower extremity wound. 3. Chronic systolic heart failure, status post implantable cardioverter-defibrillator. 4. Coronary artery disease. 5. Peripheral arterial disease. 6. Hypertension. 7. Hyperlipidemia. 8. Diabetes mellitus. 9. History of cerebrovascular accident with residual right-sided weakness. RECOMMENDATIONS: Continue monitoring the patient on telemetry. Start watch volume status closely. Creatinine has stabilized. If the patient's blood pressure and renal function remains stable, resume home lisinopril. The patient had recent peripheral angiogram without obstructive peripheral arterial disease. Monitor wound healing and IV antibiotics per primary service. No further cardiac evaluation is indicated at this time. Thank you for this consult. We will continue to follow. Chelsey Castillo MD ABS/MODL /[id number]
--- NOTE | 2019-07-05 19:13 | NUR ---
Bedside report given to night nurse. Patient in stable condition. No c/o of pain or signs of distress at this time. All safety measures in place.
[2019-07-05] MEDS ORDERED: SODIUM CHLORIDE 0.9% 250ML 250 ML ONE (20:35)
[2019-07-05] MEDS: ATORVASTATIN 10 MG TAB PO SCH (20:41)
[2019-07-05] MEDS: TAMSULOSIN HCL 0.4 MG CAP PO SCH (20:41)
[2019-07-06] VITALS (7 sets, daily range): BP systolic 113–160; BP diastolic 53–73
--- NOTE | 2019-07-06 05:48 | NUR ---
Patient down to OR
[2019-07-06] MEDS ORDERED: BACITRACIN 50,000 UNIT VIAL ONE (05:56)
[2019-07-06] MEDS ORDERED: DEXAMETHASONE SOD PHOS INJ 4 MG/ML VIAL ONE (05:56)
[2019-07-06] MEDS ORDERED: BUPIVACAINE HCL 0.5% INJ 30 ML VIAL INJ ONE (05:56)
[2019-07-06 06:48] LABS: ANION GAP 10.9 mmol/L (8-16); CALCIUM 8.8 mg/dL (8.4-10.2); CREATININE, SERUM 1.26 mg/dL (0.72-1.25); POTASSIUM 4.9 mmol/L (3.5-5.1)
--- NOTE | 2019-07-06 07:27 | NUR ---
Received report from night nurse. Awaiting patient's return from surgery.
--- NOTE | 2019-07-06 07:58 | NUR ---
Patient returned to unit from surgery. In stable condition, no c/o of pain or signs of distress at this time. All safety measures in place. Will continue to monitor.
[2019-07-06] MEDS: COLLAGENASE OINTMENT 30 GM TUBE TP SCH (09:00)
[2019-07-06] MEDS: CARVEDILOL 3.125 MG TAB PO SCH ×2 (09:33→17:00)
[2019-07-06] MEDS: SERTRALINE HCL 50 MG TAB PO SCH (09:33)
[2019-07-06] MEDS: FINASTERIDE 5 MG TAB PO SCH (09:33)
[2019-07-06] MEDS: INSULIN GLARGINE 100 UNITS/ML VIAL SQ SCH (09:33)
[2019-07-06] MEDS: SODIUM BICARBONATE 650 MG TAB PO SCH (09:33)
[2019-07-06] MEDS: ASPIRIN 81 MG CHEW TAB PO SCH (09:33)
[2019-07-06] MEDS: CYANOCOBALAMIN 1,000 MCG TAB PO SCH (09:33)
--- NOTE | 2019-07-06 10:37 | NUR ---
Spoke with Dr. Portillo and Dr. Donahue regarding dc plan. Dr. Donahue states he would like for pt to get HBO treatment if possible. Dr. Portillo agrees. Gave LTAC eval order. Spoke with pt at bedside and discussed MD's treatment plan. Pt verbalized understanding. Informed him that [facility] in network. Pt agreeable to that location. Choice letter signed and placed in chart. Informed Erendira Pruitt with [facility] of referral.
--- NOTE | 2019-07-06 10:50 | NUR ---
Patient is s/p left 1st ray amputation today 07/06/19 this morning. Non-weight bearing orders placed for PT but also need "PT Evaluate and Treat" orders to resume therapy. Discussed with RN and reports she will follow-up. Will monitor status. Addendum: 07/06/19 at 1051 by ESRGIO SEXTON PT Amended: Links added.
--- NOTE | 2019-07-06 11:01 | NUR ---
Faxed clinicals to [facility] at [phone]. Discharge disposition, once approved: [address] [address]
[2019-07-06] MEDS: INSULIN LISPRO 100 UNIT/1 ML 3ML VIAL SQ SCH ×3 (12:44→20:59)
--- NOTE | 2019-07-06 12:46 | Operative Report ---
DATE OF PROCEDURE: 07/06/2019 SURGEON: Jake Donahue DPM PREOPERATIVE DIAGNOSIS: Left foot chronic ulceration with osteomyelitis. POSTOPERATIVE DIAGNOSIS: Left foot chronic ulceration with osteomyelitis. PLANNED PROCEDURE: Left partial 1st ray amputation. ANESTHESIA: Sedation with a local block consisting of 15 mL of 0.5% Marcaine plain. HEMOSTASIS: Esmarch tourniquet applied for approximately 15 minutes. MATERIALS: A 3-0 nylon. ESTIMATED BLOOD LOSS: 10 mL. PATHOLOGY: Left hallux, left 1st metatarsal, anaerobic and aerobic wound cultures. PROCEDURE NOTE: The patient was seen in the preoperative waiting room, where the correct procedure and site was identified. The patient was brought to the operating room and placed on the operating table in the supine position. IV sedation was initiated at this time and local anesthesia was achieved to the left 1st metatarsal and left hallux with a ring block of 15 mL of 0.5% Marcaine plain. The left foot, ankle, and leg was then scrubbed, prepped, and draped in the usual aseptic fashion. The left foot and ankle were exsanguinated with an Esmarch bandage. The Esmarch tourniquet was applied for approximately 15 minutes. Attention was directed to the distal medial aspect of the patient's left 1st metatarsal head, where a deep probing ulceration is noted with metatarsal bone exposed as well as purulence to metatarsophalangeal joint. At this time, the decision was made to proceed with a partial 1st ray amputation. The incision was started encompassing the medial ulceration and through the metatarsophalangeal joint. Two converging semi-elliptical incisions were made. The incision was carried through subcutaneous tissue them from deep or underlying structures all the way down to the level of bone. Utilizing a distal towel clamp, the phalanx was grasped, pulled distally, and disarticulated from the foot. Next, the dissection was carried down to the midshaft of the 1st metatarsal to allow for good visualization of the 1st metatarsal head. Utilizing a sagittal saw, a partial 1st ray resection was performed with an osteotomy of the 1st metatarsal at the midshaft angle dorsal distal to plantar proximal slightly medial. Upon exploration of the 1st metatarsal head, it was noted to be soft and necrotic and there was purulent drainage within the bone. This was excised and passed off to the back table. Next, the remainder of the wound was debrided of all necrotic and devitalized tissue, was copiously irrigated with sterile saline mixed with bacitracin. Next, the wound edges were prepped for closure by removing all dog ears and debulking fat. The incision site was reapproximated utilizing simple interrupted sutures with 3-0 nylon. The incision site was then dressed with Adaptic, Betadine-soaked 4x4s, ABD pad, Kerlix, and an Michael wrap. The patient tolerated the procedure and anesthesia well. The patient was transferred to the postoperative recovery unit with vital signs stable and vascular status intact. The patient was monitored there for a short period of time before being readmitted to the floor for postoperative monitoring, IV antibiotics and pain control. The Podiatry Service will continue to monitor as an inpatient. PIOTR Jang/MIGDALIA /[id number]
[2019-07-06] MEDS: CEFEPIME 2 GM/NS 0.9% 100 ML 100 ML IV SCH (12:47)
[2019-07-06] MEDS: AZITHROMYCIN 500MG/NS 250 ML 250 ML IV SCH (14:06)
[2019-07-06] MEDS ORDERED: PROPOFOL IV EMULSION 10 MG/ML 20 ML VIAL ONE (14:30)
[2019-07-06] MEDS ORDERED: ONDANSETRON HCL INJ 2MG/ML 2ML 2 MG/ML VIAL ONE (14:30)
[2019-07-06] MEDS ORDERED: EPHEDRINE SULFATE INJ 50 MG/10 ML SYR ONE (14:30)
[2019-07-06] MEDS ORDERED: HYDRALAZINE HCL 20 MG/ML VIAL IV PRN (14:30)
[2019-07-06] MEDS ORDERED: LIDOCAINE HCL 2% LOCAL INJ 5 ML SDV VIAL INJ ONE (14:30)
--- NOTE | 2019-07-06 15:02 | Progress Note ---
DATE: Internal Medicine Progress Note SUBJECTIVE: The patient is doing well. He just underwent the amputation of the left 1st and 2nd toe. PHYSICAL EXAMINATION: VITAL SIGNS: Blood pressure 159/72, temperature 97.4, heart rate 63 per minute, respiratory rate 18 per minute, O2 saturation 98%. HEART: Showed regular rhythm. Normal S1 and S2 sound. LUNGS: Clear bilaterally. EXTREMITIES: Showed amputation of left 1st and 2nd toes. LABORATORY DATA: On the BMP; sodium 138, potassium 4.9, chloride 113, CO2 of 19, BUN 25, creatinine 1.26, glucose 111. On the CBC; white count 8.10, hemoglobin 7.9, hematocrit 24.6, platelet count 189,000. PT 15.1, INR 1.13, PTT 39.3. AST 12, ALT 7, total bilirubin 0.2, alkaline phosphatase 77. FINAL IMPRESSION: 1. Left foot wound status post amputation of the 1st and 2nd toe. 2. Kbzho-ng-jvmjrwe renal failure stage 3. 3. Uncontrolled diabetes mellitus type 2 with chronic renal insufficiency. 4. Peripheral vascular disease. 5. Coronary artery disease. 6. Anemia of chronic disease. 7. Pneumonia. PLAN OF TREATMENT: Continue Zithromax. Continue cefepime. Continue aspirin 81 mg daily, Lipitor 10 mg daily, Flomax 0.4 mg daily, collagenase daily, carvedilol 3.125 mg twice a day, finasteride 5 mg daily. Monitor blood sugar before meals and at bedtime, Plavix 75 mg daily, vitamin B12 1000 mcg daily, Zofran 4 mg IV q.4 hours as needed, sertraline 50 mg daily, Lantus 35 units at bedtime and sodium bicarbonate 1300 mg daily. The patient is going to be evaluated for possible transfer to [facility]. MD OSCAR Swartz/MIGDALIA /[id number]
[2019-07-06] MEDS ORDERED: FENTANYL CITRATE/PF 100MCG/2 ML INJ ONE (15:05)
--- NOTE | 2019-07-06 19:00 | NUR ---
patient received awake, alert, lying quietly in bed. no c/o pain noted. dressing left foot remains c,d,i. pm assessment complete. patient instructed to call for assistance when needed.
--- NOTE | 2019-07-06 19:16 | NUR ---
Bedside report given to night nurse. All safety measures in place.
[2019-07-06] MEDS: TAMSULOSIN HCL 0.4 MG CAP PO SCH (21:00)
[2019-07-06] MEDS: ATORVASTATIN 10 MG TAB PO SCH (21:00)
--- NOTE | 2019-07-06 22:40 | Diagnostic Imaging Report ---
Left foot radiograph 3 views HISTORY: Pain. COMPARISON: Left foot radiographs 07/02/2019, 04/25/2019 FINDINGS: Bones: Lytic lucency on the dorsal aspect of the fifth proximal phalangeal base., Partial resection of the first metatarsal shaft. Osseous alignment is within normal limits. Joints: The joint spaces are well-maintained. Soft tissues: Diffuse soft tissue swelling of the mid and forefoot, worse compared to 07/02/2019. IMPRESSION: Findings concerning for osteomyelitis of the dorsal aspect of the fifth proximal phalangeal base. Also there is diffuse soft tissue swelling about the mid and forefoot, worse compared to 07/02/2019 Recommend left forefoot MRI with contrast for further evaluation. Signed by: Shaq Stock DO on 07/06/2019 10:37 PM
[2019-07-07] VITALS: BP 142/72
--- NOTE | 2019-07-07 02:00 | Progress Note ---
DATE: 07/06/2019 Cardiology Progress Note SUBJECTIVE: The patient denies chest pain or shortness of breath. OBJECTIVE: VITAL SIGNS: Temperature 97.4 degrees, pulse 63, respiratory rate 18, blood pressure 160/72, oxygen saturation 98% on room air. GENERAL: Awake, alert, in no acute distress. LUNGS: Clear to auscultation bilaterally. No wheezes or crackles. CARDIOVASCULAR: Normal rate, regular rhythm. No murmur. Normal S1, S2, soft, nontender. EXTREMITIES: Dressing present on the left foot. CARDIAC MEDICATIONS: Atorvastatin 10 mg p.o. at bedtime, aspirin 81 mg p.o. daily, carvedilol 3.125 mg p.o. b.i.d. LABORATORY DATA: None today. TELEMETRY: V-Paced. IMPRESSION: 1. Acute kidney injury, improved. 2. Sepsis secondary to pneumonia versus left lower extremity wound. 3. Chronic systolic heart failure, status post ICD. 4. Coronary artery disease. 5. Peripheral arterial disease. 6. Hypertension. 7. Hyperlipidemia. 8. Diabetes mellitus. 9. History of cerebrovascular accident with residual right-sided weakness. RECOMMENDATIONS: Continue to monitor the patient on telemetry. Watch volume status closely. The patient's blood pressure and renal function remains stable. Resume home lisinopril. The patient has had recent peripheral angiogram without obstructive peripheral arterial disease. Monitor wound healing. IV antibiotics per primary service. No further cardiac evaluation is indicated at this time. Thank you for this consult. We will continue to follow. Chelsey Castillo MD ABS/MODL /[id number]
[2019-07-07 04:00] VITALS: BP 149/75
[2019-07-07] MEDS: INSULIN LISPRO 100 UNIT/1 ML 3ML VIAL SQ SCH ×4 (07:30→16:33)
--- NOTE | 2019-07-07 07:35 | NUR ---
patient endorsed to next shift for continuity of care.
[2019-07-07 08:00] VITALS: BP 173/74
--- NOTE | 2019-07-07 08:00 | NUR ---
RECEIVED PT RESTING AT BEDSIDE SHIFT REPORT. STARR CD&I TO LEFT FT.
[2019-07-07] MEDS: COLLAGENASE OINTMENT 30 GM TUBE TP SCH (09:00)
[2019-07-07] MEDS: FINASTERIDE 5 MG TAB PO SCH (09:00)
[2019-07-07] MEDS: ASPIRIN 81 MG CHEW TAB PO SCH (09:00)
[2019-07-07] MEDS: CLOPIDOGREL BISULFATE 75 MG TAB PO SCH (09:00)
[2019-07-07] MEDS: SODIUM BICARBONATE 650 MG TAB PO SCH (09:00)
[2019-07-07] MEDS: CARVEDILOL 3.125 MG TAB PO SCH ×2 (09:00→17:00)
[2019-07-07] MEDS: SERTRALINE HCL 50 MG TAB PO SCH (09:00)
[2019-07-07] MEDS: CYANOCOBALAMIN 1,000 MCG TAB PO SCH (09:00)
[2019-07-07] MEDS: INSULIN GLARGINE 100 UNITS/ML VIAL SQ SCH (09:00)
--- NOTE | 2019-07-07 09:57 | Progress Note ---
DATE: 07/07/2019 SUBJECTIVE: This is a 68-year-old male with past medical history of type 2 diabetes, peripheral neuropathy, coronary artery disease, peripheral vascular disease; chronic renal insufficiency, and stroke. He is postoperative day #1, left partial 1st ray amputation for osteomyelitis. The patient denies any pain to his foot at this time. Denies nausea, vomiting, fever, chest pain, chills, or shortness of breath. No acute issues overnight. OBJECTIVE: VITAL SIGNS: Today, temperature is 98.2, heart rate 73, respiratory rate 20, blood pressure 149/75, and pulse ox 100% on room air. PROBLEM FOCUSED LOWER EXTREMITY PHYSICAL EXAMINATION: VASCULAR: Dorsalis pedis pulse is faintly palpable. Capillary refill time is approximately 4 to 5 seconds all remaining digits. Negative erythema, edema, or warmth is noted to the patient's left foot. NEUROLOGICAL: Sensation is absent to light touch bilateral. MUSCULOSKELETAL: Left partial 1st ray amputation dorsally contracted digits 2 through 5 to the left. Otherwise, deferred. DERMATOLOGIC: Incision sites noted at the patient's left foot. All sutures are in place and intact. No evidence of wound dehiscence. No local acute signs of infection. Moderate strike through was noted through the bandage. LABORATORY DATA: White blood cell count 8.1, hemoglobin 7.9, hematocrit 24.6, and platelet count 189. Blood glucose today 368. MICROBIOLOGY: Operative foot culture is pending. ASSESSMENT: 1. Left foot osteomyelitis, postoperative day #1, partial 1st ray amputation. 2. Type 2 diabetes, peripheral neuropathy. 3. Peripheral vascular disease. 4. Renal insufficiency. PLAN: The patient was seen and evaluated, discussed condition and treatment options with the patient in detail. At this time, a dry sterile dressing change was performed with Betadine wet-to-dry due to strike through noted to the bandage. No active bleeding was noted. Sutures are in place and intact. No local acute signs of infection are noted. The patient is stable to be discharged from the Podiatry standpoint, would recommend long-term acute care facility for continued IV antibiotics, local wound care, and hyperbaric oxygen. The patient has been seen by Cardiology and determined that he is not amenable to any angioplasty at this time. The Podiatry Service will continue to monitor as an inpatient. PIOTR Jang /[id number]
--- NOTE | 2019-07-07 10:20 | NUR ---
PT GETTING AM CARE. PT IN GOOD SPIRIT. DRSG REMAINS CD&I TO LT FOOT
[2019-07-07 12:00] VITALS: BP 147/67
[2019-07-07] MEDS: CEFEPIME 2 GM/NS 0.9% 100 ML 100 ML IV SCH ×2 (12:00)
--- NOTE | 2019-07-07 13:22 | NUR ---
Nutrition LOS Note RD Recommendation(s) for Physician / Nutrition Prescription: continue with diet as prescribed Plan of Care: Patient has been screened and assessed for nutrition risk. At this time, the patient does not pose any nutrition risk. No further nutrition intervention is warranted at this time. Will re-evaluate if consulted by medical staff. Nutrition reason for involvement: LOS Primary Dx: Left foot osteomyelitis, postoperative day #1, partial 1st ray amputation PMH: Type 2 diabetes, peripheral neuropathy, coronary artery disease, peripheral vascular disease; chronic renal insufficiency, and stroke Ht: 72in Wt: 207lb BMI: 28.1kg/m2 IBW: 178lb +/- 10% RD Assessment: (07/07) 68yo M, who was admitted for L foot osteomyelitis. Visited pt in the room per LOS. Pt reported good appetite. No complains of nausea or vomiting. Pt denied any chewing or swallowing difficulty. Weight has been stable. Current diet is appropriate and adequate. Malnutrition Evaluation (07/07/2019) The patient does not meet criteria for a specified degree of malnutrition at this time. Will re-evaluate at follow-up as appropriate. Diet Education Needs Assessment: Diet education not indicated. Nutrition Care Level: Low Signed by Wanda Paulino, MS, RD, LD
[2019-07-07] MEDS: AZITHROMYCIN 500MG/NS 250 ML 250 ML IV SCH (14:30)
[2019-07-07 16:00] VITALS: BP 120/58
--- NOTE | 2019-07-07 16:30 | NUR ---
BS 111 NO COVERAGE NEEDED
--- NOTE | 2019-07-07 16:54 | Progress Note ---
DATE: Internal Medicine Progress Note SUBJECTIVE: He is doing well. PHYSICAL EXAMINATION: VITAL SIGNS: Blood pressure 173/74, temperature 98.2, heart rate 72 per minute, respiratory rate 18 per minute, and oxygen saturation 96%. HEART: Showed regular rhythm. Normal S1, S2 sound. LUNGS: Clear bilaterally. ABDOMEN: Soft. LABORATORY DATA: On the BMP; sodium 138, potassium 4.9, chloride 113, CO2 19, BUN 25, creatinine 1.26, glucose 111. On the CBC; white blood count 8.10, hemoglobin 7.9, hematocrit 24.6, platelet count 189,000. PT 15.1, INR 1.13, PTT 39.3. AST 12, ALT 7, total bilirubin 0.2, alkaline phosphatase 77. FINAL IMPRESSION: 1. Left foot wound, status post amputation of the 1st and 2nd toes. 2. Chronic renal failure, stage 3. 3. Peripheral vascular disease. 4. Pneumonia. 5. Uncontrolled diabetes mellitus type 2 with chronic renal insufficiency. 6. Benign prostatic hypertrophy. 7. Hypercholesterolemia. PLAN OF TREATMENT: 1. Continue Zithromax 250 mg IV once a day. 2. Cefepime 1 g IV twice a day. 3. Aspirin 81 mg daily. 4. Lipitor 10 mg daily. 5. Flomax 0.4 mg at bedtime. 6. Collagenase ointment daily. 7. Carvedilol 3.125 mg twice a day. 8. Finasteride 5 mg daily. 9. Continue monitoring blood sugar before meals and at bedtime. 10. Continue hydralazine 10 mg IV q.4 hours as needed for hypertension. 11. Plavix 75 mg daily. 12. Vitamin B12 1000 mcg daily. 13. Zofran 4 mg IV q.4 hours as needed. 14. Sertraline 50 mg daily. 15. Lantus 35 units at bedtime. 16. Sodium bicarbonate 1300 mg daily. We are still waiting for transfer to a half-way facility or LTAC. We are hoping to transfer to LTAC . MD OSCAR Swartz/MIGDALIA /[id number]
--- NOTE | 2019-07-07 19:00 | NUR ---
patient received awake, alert, lying quietly in bed. dressing to left foot c,d,i. no c/o pain noted at this time. pm assessment complete. patient instructed to call for assistance when needed.
[2019-07-07 20:00] VITALS: BP 146/64
[2019-07-07] MEDS: TAMSULOSIN HCL 0.4 MG CAP PO SCH (20:32)
[2019-07-07] MEDS: ATORVASTATIN 10 MG TAB PO SCH (20:32)
[2019-07-08] VITALS (7 sets, daily range): BP systolic 109–149; BP diastolic 54–67
--- NOTE | 2019-07-08 00:01 | Progress Note ---
DATE: 07/07/2019 Cardiology Progress Note SUBJECTIVE: The patient denies chest pain or shortness of breath. OBJECTIVE: VITAL SIGNS: Temperature 97.5 degrees, pulse 63, respiratory rate 20, blood pressure 147/66, oxygen saturation 90% to 98% percent on room air. GENERAL: Awake and alert, in no acute distress. LUNGS: Clear to auscultation bilaterally. No wheezes or crackles. CARDIOVASCULAR: Normal rate and regular rhythm. No murmur. Normal S1 and S2. ABDOMEN: Soft, nontender. EXTREMITIES: Dressing present on the left foot. CARDIAC MEDICATIONS: Atorvastatin 10 mg p.o. at bedtime, Plavix 75 mg p.o. daily, aspirin 81 mg p.o. daily, carvedilol 3.125 mg p.o. b.i.d. LABORATORY DATA: None today. TELEMETRY: V paced. IMPRESSION: 1. Acute kidney injury, improved. 2. Sepsis secondary to pneumonia versus left lower extremity wound. 3. Chronic systolic heart failure, status post ICD. 4. Coronary artery disease and peripheral artery disease. 5. Hypertension. 6. Hyperlipidemia. 7. Diabetes mellitus. 8. History of cerebrovascular accident with residual right-sided weakness. RECOMMENDATIONS: Continue to monitor the patient on telemetry. Watch volume status closely. If the patient's renal function remains stable, recommend resuming home JHONY inhibitor. Continue carvedilol. The patient had recent peripheral angiogram without obstructive peripheral arterial disease. No further evaluation is indicated at this time. Monitor wound healing. If wound fails to heal, we will revisit possibility of repeat angiogram at that time. IV antibiotics per primary service. Wound care per Podiatry. Thank you for this consult. We will continue to follow. Chelsey Castillo MD ABS/MODL /[id number]
[2019-07-08] MEDS ORDERED: SODIUM CHLORIDE 0.9% 250ML 250 ML ONE (00:36)
[2019-07-08] MEDS: INSULIN LISPRO 100 UNIT/1 ML 3ML VIAL SQ SCH ×4 (07:30→21:00)
[2019-07-08] MEDS: ASPIRIN 81 MG CHEW TAB PO SCH (08:18)
[2019-07-08] MEDS: SODIUM BICARBONATE 650 MG TAB PO SCH (08:19)
[2019-07-08] MEDS: FINASTERIDE 5 MG TAB PO SCH (08:19)
[2019-07-08] MEDS: CLOPIDOGREL BISULFATE 75 MG TAB PO SCH (08:19)
[2019-07-08] MEDS: SERTRALINE HCL 50 MG TAB PO SCH (08:20)
[2019-07-08] MEDS: CYANOCOBALAMIN 1,000 MCG TAB PO SCH (08:20)
[2019-07-08] MEDS: INSULIN GLARGINE 100 UNITS/ML VIAL SQ SCH (08:23)
[2019-07-08] MEDS: CARVEDILOL 3.125 MG TAB PO SCH ×2 (08:23→16:49)
[2019-07-08] MEDS: COLLAGENASE OINTMENT 30 GM TUBE TP SCH (09:00)
[2019-07-08] MEDS: CEFEPIME 2 GM/NS 0.9% 100 ML 100 ML IV SCH ×3 (13:05→21:35)
[2019-07-08] MEDS: AZITHROMYCIN 500MG/NS 250 ML 250 ML IV SCH (14:18)
[2019-07-08 16:03] LABS: ANION GAP 11.1 mmol/L (8-16); BLOOD UREA NITROGEN 24 mg/dL (7-26); BUN/CREATININE RATIO 21 (6-25); CALCIUM 8.4 mg/dL (8.4-10.2); CARBON DIOXIDE 21 mmol/L (22-29); CHLORIDE 110 mmol/L (98-107); CREATININE, SERUM 1.14 mg/dL (0.72-1.25); EST GLOMERULAR FILTRATION RATE > 60 ML/MIN (60-); GLUCOSE 113 mg/dL (74-118); POTASSIUM 4.1 mmol/L (3.5-5.1); SODIUM 138 mmol/L (136-145)
--- NOTE | 2019-07-08 19:58 | NUR ---
Received change of shift report from AM nurse. Walking rounds completed.
[2019-07-08] MEDS: TAMSULOSIN HCL 0.4 MG CAP PO SCH (21:00)
[2019-07-08] MEDS: ATORVASTATIN 10 MG TAB PO SCH (21:00)
[2019-07-09] VITALS (7 sets, daily range): BP systolic 116–153; BP diastolic 57–69
--- NOTE | 2019-07-09 | NUR ---
Patient in bed resting quitly. Dressing to left foot dry, intact.
--- NOTE | 2019-07-09 03:48 | NUR ---
Patient resting quitly at this time.
[2019-07-09] MEDS: CEFEPIME 2 GM/NS 0.9% 100 ML 100 ML IV SCH ×3 (05:37→22:00)
[2019-07-09] MEDS: INSULIN LISPRO 100 UNIT/1 ML 3ML VIAL SQ SCH ×4 (07:30→21:00)
[2019-07-09] MEDS: COLLAGENASE OINTMENT 30 GM TUBE TP SCH (09:00)
[2019-07-09] MEDS: INSULIN GLARGINE 100 UNITS/ML VIAL SQ SCH ×2 (09:00→09:20)
[2019-07-09] MEDS: SERTRALINE HCL 50 MG TAB PO SCH (09:19)
[2019-07-09] MEDS: SODIUM BICARBONATE 650 MG TAB PO SCH (09:19)
[2019-07-09] MEDS: FINASTERIDE 5 MG TAB PO SCH (09:19)
[2019-07-09] MEDS: CLOPIDOGREL BISULFATE 75 MG TAB PO SCH (09:19)
[2019-07-09] MEDS: ASPIRIN 81 MG CHEW TAB PO SCH (09:19)
[2019-07-09] MEDS: CARVEDILOL 3.125 MG TAB PO SCH ×2 (09:19→17:14)
[2019-07-09] MEDS: CYANOCOBALAMIN 1,000 MCG TAB PO SCH (09:19)
--- NOTE | 2019-07-09 13:43 | Progress Note ---
DATE: Cardiology Progress Note SUBJECTIVE: Denies any chest pain or shortness of breath. Sleeping comfortably. OBJECTIVE: VITAL SIGNS: Temperature is 97.6, heart rate 69, respirations are 20, blood pressure is 130/68, oxygen saturation 97% on room air. GENERAL: He is a well-appearing elderly man, in no apparent distress. Alert. CARDIOVASCULAR: Regular rate and rhythm. LUNGS: Clear to auscultation. ABDOMEN: Soft, nontender, nondistended. EXTREMITIES: Trace edema. LABORATORY DATA: Hemoglobin 7.9. Creatinine 1.14. Telemetry monitoring revealed AV paced rhythm. IMPRESSION: 1. Acute kidney injury, improved. 2. Sepsis secondary to pneumonia and left lower extremity wound. 3. Chronic systolic congestive heart failure, status post ICD. 4. Coronary artery disease. 5. Hypertension. 6. Hyperlipidemia. 7. History of cerebrovascular accident with residual weakness. RECOMMENDATIONS: Continue current cardiovascular medications including dual antiplatelet therapy and statin. He is on a beta myrna. Resume JHONY inhibitor as his creatinine remains stable. Reviewed peripheral angiogram again and he has no significant peripheral artery disease. Continue antibiotics per primary team. We will continue to follow along with you. Salbador Simpson DO BM/MODL /[id number]
[2019-07-09] MEDS: AZITHROMYCIN 500MG/NS 250 ML 250 ML IV SCH (14:30)
--- NOTE | 2019-07-09 15:20 | NUR ---
Visit made by the Spiritual Care Department Pastoral Visitor, Pawan Rich. PV provided pastoral presence, hospitality, and supportive listening. Pastoral Visitor informed pt/family of the scope of [employer] [facility] and availability. HUEY HARVEY [employer] Spiritual Care Department O: [phone] Pager: [phone] ([phone] number calling from)
--- NOTE | 2019-07-09 19:59 | NUR ---
Received change of shift report from AM nurse. Walking rounds completed.
[2019-07-09] MEDS: TAMSULOSIN HCL 0.4 MG CAP PO SCH (20:33)
[2019-07-09] MEDS: ATORVASTATIN 10 MG TAB PO SCH (20:33)
[2019-07-10] VITALS (7 sets, daily range): BP systolic 99–152; BP diastolic 47–73
[2019-07-10] MEDS: CEFEPIME 2 GM/NS 0.9% 100 ML 100 ML IV SCH ×2 (05:27→14:50)
--- NOTE | 2019-07-10 05:46 | NUR ---
Patient resting quitly at this time.
--- NOTE | 2019-07-10 07:00 | NUR ---
received am report from nurse and morning rounds done. pt is alert and resting in bed, no s/s of distress. call light within reach and instructed pt to call for help. side rails are up. family is at the bedside
[2019-07-10] MEDS: INSULIN LISPRO 100 UNIT/1 ML 3ML VIAL SQ SCH ×4 (07:30→20:14)
[2019-07-10] MEDS: COLLAGENASE OINTMENT 30 GM TUBE TP SCH (09:00)
[2019-07-10] MEDS: INSULIN GLARGINE 100 UNITS/ML VIAL SQ SCH (09:00)
[2019-07-10] MEDS: CARVEDILOL 3.125 MG TAB PO SCH ×2 (09:53→17:14)
[2019-07-10] MEDS: FINASTERIDE 5 MG TAB PO SCH (09:53)
[2019-07-10] MEDS: CLOPIDOGREL BISULFATE 75 MG TAB PO SCH (09:53)
[2019-07-10] MEDS: CYANOCOBALAMIN 1,000 MCG TAB PO SCH (09:54)
[2019-07-10] MEDS: SODIUM BICARBONATE 650 MG TAB PO SCH (09:54)
[2019-07-10] MEDS: SERTRALINE HCL 50 MG TAB PO SCH (09:55)
[2019-07-10] MEDS: ASPIRIN 81 MG CHEW TAB PO SCH (09:58)
--- NOTE | 2019-07-10 11:58 | NUR ---
CALL RECEIVED FROM [facility] REGARDING DENIAL FOR [facility]. STATES THEY WOULD LIKE TO DO A QETH-DR-JUOX W DR. MONTAÑO. CALL VANCE @ [phone]; REF# [id number] CALL TO DR. MONTAÑO. STATES HE WILL BE AVAILABLE FROM 2-4PM TODAY FOR P2P. VALERIE Lydia MEJIA WAS NOTIFIED AND SABRA'S CELL # GIVEN. WILL CONT TO FOLLOW.
[2019-07-10] MEDS: AZITHROMYCIN 500MG/NS 250 ML 250 ML IV SCH (16:04)
--- NOTE | 2019-07-10 17:56 | Progress Note ---
DATE: Internal Medicine Progress Note SUBJECTIVE: The patient is doing well. No significant complaints. possibility of him to go to a long-term care hospital . PHYSICAL EXAMINATION: VITAL SIGNS: Blood pressure 128/64, temperature 98.2, heart rate 63 per minute, respiratory rate is 15 per minute, and oxygen saturation 99%. HEART: Showed regular rate and rhythm. Normal S1 and S2 sound. LUNGS: Clear bilaterally. ABDOMEN: . EXTREMITIES: Show dressing on the left foot. LABORATORY DATA: On the BMP; sodium 138, potassium 4.1, chloride 110, CO2 of 21, BUN 24, creatinine 1.14, and glucose 113. On the CBC, white blood count 8.10, hemoglobin 7.9, hematocrit 24.6, and platelet count 189,000. PT 15.1, INR 1.13, and PTT 39.3. AST 12, ALT 7, total bilirubin 0.2, and alkaline phosphatase 77. IMPRESSION: 1. Left foot wound with osteomyelitis. 2. Pneumonia. 3. Chronic renal failure, stage 3 secondary to diabetic nephropathy. 4. Uncontrolled diabetes mellitus type 2 with diabetic nephropathy. 5. Hypertension with hypertensive nephropathy. 6. Anemia of chronic disease secondary to chronic renal insufficiency. 7. Peripheral vascular disease. 8. Benign prostatic hypertrophy. PLAN OF TREATMENT: Continue Zithromax 250 mg IV daily, cefepime 1 g , Lipitor 10 mg daily, Flomax 0.4 mg daily, collagenase ointment daily, carvedilol 3.125 mg twice a day, and Proscar 5 mg daily. Monitor blood sugar before meals and at bedtime. Hydralazine 10 mg every 4 hours as needed for hypertension, aspirin 81 mg daily, Plavix 75 mg daily, vitamin B12 1000 mcg daily, Zofran 4 mg IV every 4 hours as needed, sertraline 50 mg daily, Lantus 35 units at bedtime, and sodium bicarbonate 1300 mg daily. As I said, we are going to appeal the decision of the insurance denial on the patient to have access to a long-term care hospital. Continue diabetic renal diet. Continue physical and occupational therapy. Continue IV antibiotic therapy. Continue wound care. MD OSCAR Swartz/MIGDALIA /[id number]
--- NOTE | 2019-07-10 19:30 | NUR ---
Received change of shift report from Am nurse. Patient up in bed. Denies pain at this time.
[2019-07-10] MEDS: ATORVASTATIN 10 MG TAB PO SCH (20:14)
[2019-07-10] MEDS: TAMSULOSIN HCL 0.4 MG CAP PO SCH (20:14)
[2019-07-10] MEDS: PIPER-TAZ 3.375 GM 50 ML IV SCH (23:34)
[2019-07-11] VITALS (8 sets, daily range): BP systolic 114–138; BP diastolic 55–63
--- NOTE | 2019-07-11 03:37 | Progress Note ---
DATE: 07/10/2019 Cardiology Progress Note SUBJECTIVE: The patient denies chest pain or shortness of breath. OBJECTIVE: VITAL SIGNS: Temperature 97.1 degrees, pulse 70, respiratory rate 15, blood pressure 152/72, oxygen saturation 99% on room air. GENERAL: Awake and alert, in no distress. LUNGS: Clear to auscultation bilaterally. No wheeze or crackles. CARDIOVASCULAR: Normal rate and regular rhythm. No murmur. ABDOMEN: Soft, nontender. EXTREMITIES: No edema. CARDIAC MEDICATIONS: Atorvastatin 10 mg p.o. at bedtime, carvedilol 3.125 mg p.o. b.i.d., aspirin 81 mg p.o. daily, Plavix 75 mg p.o. daily. LABORATORY DATA: None today. TELEMETRY: V paced. IMPRESSION: 1. Acute kidney injury, improved. 2. Sepsis secondary to pneumonia and left lower extremity wound. 3. Chronic systolic heart failure, status post ICD. 4. Coronary artery disease. 5. Hypertension. 6. Hyperlipidemia. 7. History of cerebrovascular accident with residual right-sided weakness. RECOMMENDATIONS: Watch the patient on telemetry. Continue current cardiac medications. Monitor volume status closely. The patient's blood pressure is elevated. As his creatinine has improved, we would recommend re-initiation of JHONY inhibitor. Peripheral angiogram has been reviewed. He has no significant PAD. Continue antibiotics per primary service. Thank you for this consult. We will continue to follow. Chelsey Castillo MD ABS/MODL /[id number]
[2019-07-11] MEDS: PIPER-TAZ 3.375 GM 50 ML IV SCH ×3 (06:00→17:44)
[2019-07-11 06:45] LABS: ANION GAP 10.3 mmol/L (8-16); CALCIUM 8.5 mg/dL (8.4-10.2); CREATININE, SERUM 1.33 mg/dL (0.72-1.25); POTASSIUM 4.3 mmol/L (3.5-5.1)
--- NOTE | 2019-07-11 07:00 | NUR ---
received am report from nurse and morning rounds done. pt is alert resting in bed, no s/s of distress. call light within reach and instructed pt to call nurse for help.
[2019-07-11] MEDS: INSULIN LISPRO 100 UNIT/1 ML 3ML VIAL SQ SCH ×4 (07:30→21:00)
[2019-07-11] MEDS: CARVEDILOL 3.125 MG TAB PO SCH ×2 (08:09→16:26)
[2019-07-11] MEDS: SODIUM BICARBONATE 650 MG TAB PO SCH (08:09)
[2019-07-11] MEDS: FINASTERIDE 5 MG TAB PO SCH (08:09)
[2019-07-11] MEDS: ASPIRIN 81 MG CHEW TAB PO SCH (08:09)
[2019-07-11] MEDS: CLOPIDOGREL BISULFATE 75 MG TAB PO SCH (08:09)
[2019-07-11] MEDS: CYANOCOBALAMIN 1,000 MCG TAB PO SCH (08:10)
[2019-07-11] MEDS: SERTRALINE HCL 50 MG TAB PO SCH (08:10)
[2019-07-11] MEDS: INSULIN GLARGINE 100 UNITS/ML VIAL SQ SCH (08:24)
[2019-07-11] MEDS: COLLAGENASE OINTMENT 30 GM TUBE TP SCH (09:00)
--- NOTE | 2019-07-11 10:14 | NUR ---
dressing change to left foot done
--- NOTE | 2019-07-11 11:39 | NUR ---
pt is participating with physical therapy
--- NOTE | 2019-07-11 12:04 | Progress Note ---
DATE: 07/11/2019 SUBJECTIVE: This 68-year-old male with past medical history of type 2 diabetes, peripheral neuropathy, coronary artery disease, peripheral vascular disease, chronic renal insufficiency, and stroke. He is currently postoperative day #5, left partial 1st ray amputation for osteomyelitis. The patient denies any pain to his foot at this time. Denies nausea, vomiting, fever, chills, chest pain, or shortness of breath. PHYSICAL EXAMINATION: GENERAL: Alert and oriented x3, in no apparent distress. VITAL SIGNS: Today, temperature 97.4, heart rate 66, respiratory rate 20, blood pressure 138/63, and pulse ox is 97% on room air. PROBLEM FOCUSED LOWER EXTREMITY PHYSICAL EXAMINATION: VASCULAR: Dorsalis pedis pulse is faintly palpable. Capillary refill time 4 to 5 seconds to all remaining digits. Negative erythema, edema, or warmth is noted of the patient's left foot. NEUROLOGICAL: Sensation is absent to light touch bilateral. MUSCULOSKELETAL: Left partial 1st ray amputation dorsally contracted digits 2 through 5 to the left, otherwise deferred. DERMATOLOGICAL: Incision sites noted to the patient's left foot. All sutures remain to be in place and intact. No evidence of wound dehiscence. No local acute signs of infection. No strike through is noted to the bandage. LABORATORY DATA: Sodium 137, potassium 4.3, chloride 108, CO2 of 23, BUN 22, creatinine 1.33, glucose 108. MICROBIOLOGY: Wound cultures; intraoperatively with Enterococcus faecalis, Morganella morganii. Blood cultures; Staphylococcus coag-negative. Initial foot wound cultures Pseudomonas. ASSESSMENT: 1. Left foot osteomyelitis, postoperative day #5, partial 1st ray amputation. 2. Type 2 diabetes, nephropathy. 3. Peripheral vascular disease. 4. Renal insufficiency. PLAN: The patient was seen and evaluated. Discussed condition and treatment options with the patient in detail. At this time, a dry sterile dressing change was performed with Betadine wet-to-dry, no strike through was noted to the bandage. No active bleeding was present. Sutures remain in place and intact. No signs of infection. The patient is again stable to be discharged from Podiatry standpoint and would recommend long-term acute care facility for continued IV antibiotics. Local wound care and possible hyperbaric oxygen. The patient is seen by Cardiology and determined no angioplasty is needed at this time. The patient apparently was denied at LTAC is pending with the primary care team. The Podiatry Service will continue to monitor at this time. PIOTR Jang/MODL /[id number]
--- NOTE | 2019-07-11 12:15 | Progress Note ---
DATE: Internal Medicine Progress Note SUBJECTIVE: The patient is doing well. No significant complaints. PHYSICAL EXAMINATION: VITAL SIGNS: Blood pressure 138/63, temperature 97.4, heart rate 66 per minute, respiratory rate is 20 per minute, oxygen saturation 97%. HEART: Showed regular rhythm. Normal S1, S2 sound. LUNGS: Clear bilaterally. ABDOMEN: Soft. EXTREMITIES: Show dressing on the left foot. LABORATORY DATA: On the BMP; sodium 137, potassium 4.3, chloride 108, CO2 of 23, BUN 22, creatinine 1.33, glucose 108. On CBC, white blood count 8.10, hemoglobin 7.9, hematocrit 24.6, platelet count 189,000. PT 15.1, INR 1.13, PTT 39.3. AST 12, ALT 7, total bilirubin 0.2, alkaline phosphatase 77. IMPRESSION: 1. Left foot wound with osteomyelitis, status post partial amputation of the foot. 2. Chronic renal insufficiency, stage III. 3. Diabetes mellitus, type 2 with chronic renal insufficiency. 4. Anemia of chronic disease secondary to chronic renal insufficiency. 5. Peripheral vascular disease. 6. Benign prostatic hypertrophy. 7. Hypertension with chronic renal insufficiency. 8. Lobar pneumonia. PLAN OF TREATMENT: Continue Zosyn 3.375 g IV q.6 hours, aspirin 81 mg daily, Lipitor 10 mg daily, Proscar 5 mg daily. Monitor blood sugar before meals and at bedtime. Hydralazine 10 mg IV q.4 hours as needed for hypertension, Plavix 75 mg daily, vitamin B12 1000 mcg p.o. daily, Zofran 4 mg IV q.4 hours as needed, sertraline 50 mg daily. Continue Lantus 35 units at bedtime. Continue sodium bicarbonate 1300 mg daily because of the acidosis produced by renal insufficiency. Continue Flomax 0.4 mg daily, collagenase ointment daily, carvedilol 3.125 mg twice a day. MD OSCAR Swartz/MIGDALIA /[id number]
[2019-07-11] MEDS: TAMSULOSIN HCL 0.4 MG CAP PO SCH (21:15)
[2019-07-11] MEDS: ATORVASTATIN 10 MG TAB PO SCH (21:15)
--- NOTE | 2019-07-11 21:15 | NUR ---
PATIENT IS AOX3 NO SIGNS OF DISTRESS NOTED. PATIENT VOICES NO PAIN AT THIS TIME AND IS RESTING COMFORTABLY IN BED. BED IS LOCKED AND IN LOWEST POSITION, BOTH SIDE RAILS ARE UP, CALL LIGHT WITHIN EASY REACH, WILL CONTINUE TO MONITOR.
[2019-07-12] VITALS (8 sets, daily range): BP systolic 121–149; BP diastolic 59–70
[2019-07-12] MEDS: PIPER-TAZ 3.375 GM 50 ML IV SCH ×4 (00:40→18:00)
--- NOTE | 2019-07-12 02:28 | Progress Note ---
DATE: 07/11/2019 Cardiology Progress Note SUBJECTIVE: The patient denies chest pain or shortness of breath. OBJECTIVE: VITAL SIGNS: Temperature 97.4 degrees, pulse 66, respiratory rate 20, blood pressure 138/62, oxygen saturation 99% on room air. GENERAL: Awake and alert, in no acute distress. LUNGS: Clear to auscultation bilaterally. No wheeze or crackles. CARDIOVASCULAR: Normal rate and regular rhythm. No murmur. Normal S1 and S2. ABDOMEN: Soft and nontender. EXTREMITIES: No edema. CARDIAC MEDICATIONS: Atorvastatin 10 mg p.o. at bedtime, carvedilol 3.125 mg p.o. b.i.d., Plavix 75 mg p.o. daily, aspirin 81 mg p.o. daily. LABORATORY DATA: Sodium 137, potassium 4.3, chloride 108, CO2 of 23, BUN 22, creatinine 1.33. TELEMETRY: V-paced. IMPRESSION: 1. Acute kidney injury. 2. Sepsis secondary to pneumonia and left lower extremity wound. 3. Chronic systolic heart failure, status post ICD. 4. Coronary artery disease. 5. Hypertension. 6. Hyperlipidemia. 7. History of cerebrovascular accident with residual right-sided weakness. RECOMMENDATIONS: Monitor the patient on telemetry. Continue current cardiac medications. The patient's blood pressure has improved. Watch volume status closely. If renal function remains stable, recommend re-initiation of JHONY inhibitor. Peripheral angiogram has been reviewed. He has no significant peripheral arterial disease. Continue antibiotics per primary service. Thank you for this consult. We will continue to follow. Chelsey Castillo MD ABS/MODL /[id number]
[2019-07-12] MEDS: INSULIN LISPRO 100 UNIT/1 ML 3ML VIAL SQ SCH ×4 (07:30→21:03)
[2019-07-12] MEDS: COLLAGENASE OINTMENT 30 GM TUBE TP SCH (09:00)
[2019-07-12] MEDS: INSULIN GLARGINE 100 UNITS/ML VIAL SQ SCH (09:00)
[2019-07-12] MEDS: SODIUM BICARBONATE 650 MG TAB PO SCH (09:10)
[2019-07-12] MEDS: FINASTERIDE 5 MG TAB PO SCH (09:11)
[2019-07-12] MEDS: SERTRALINE HCL 50 MG TAB PO SCH (09:12)
[2019-07-12] MEDS: CYANOCOBALAMIN 1,000 MCG TAB PO SCH (09:12)
[2019-07-12] MEDS: CARVEDILOL 3.125 MG TAB PO SCH ×2 (09:13→17:00)
[2019-07-12] MEDS: ASPIRIN 81 MG CHEW TAB PO SCH (09:13)
[2019-07-12] MEDS: CLOPIDOGREL BISULFATE 75 MG TAB PO SCH (09:13)
--- NOTE | 2019-07-12 13:01 | Progress Note ---
DATE: Internal Medicine Progress Note SUBJECTIVE: The patient is doing well. No significant complaint. PHYSICAL EXAMINATION: HEART: Showed regular rhythm. Normal S1 and S2 sound. LUNGS: Clear bilaterally. ABDOMEN: Soft. EXTREMITIES: Show dressing on the right foot. VITAL SIGNS: Blood pressure 149/70, temperature 97.9, heart rate 66 per minute, respiratory rate 17 per minute, and oxygen saturation 98%. LABORATORY DATA: On the BMP; sodium 137, potassium 4.3, chloride 108, CO2 23, BUN 22, creatinine 1.33, and glucose 108. On the CBC; white blood count 8.10, hemoglobin 7.9, hematocrit 24.6, and platelet count 189,000. PT 15.1, INR 1.13, and PTT 39.3. AST 12, ALT 7, total bilirubin 0.2, and alkaline phosphatase 77. IMPRESSION: 1. Left foot infection with osteomyelitis due to Morganella morganii and Enterococcus faecalis. 2. Uncontrolled diabetes mellitus type 2 with diabetic neuropathy and diabetic nephropathy. 3. Benign prostatic hypertrophy. 4. Severe peripheral vascular disease. 5. Hypertension with chronic renal failure. PLAN OF TREATMENT: Continue Zosyn q.6 hours, aspirin 81 mg daily, Lipitor 10 mg daily, and Zosyn 3.375 g IV q.6 hours. Continue Proscar 5 mg daily. Continue monitoring blood sugar before meals and at bedtime, hydralazine 10 mg q.6 hours as needed for hypertension, Plavix 75 mg daily, vitamin B12 1000 mcg daily, Zofran 4 mg IV q.4 hours as needed, sertraline 50 mg daily, Lantus 15 units daily, sodium bicarbonate 1300 mg daily, Flomax 0.4 mg daily, collagenase ointment daily, and carvedilol 3.125 mg twice a day. We are still waiting on the insurance decision for reversal of denial on the transfer to an LTAC, which the patient is a candidate to go to a long-term care hospital due to the fact that he has osteomyelitis on the left foot. He is on IV antibiotic. He needs comprehensive course of wound care. He also has severe peripheral vascular disease, renal insufficiency, and multiple comorbidities, but as I said the insurance denied a transfer to LTAC, we are appealing the decision. I am still waiting for their call to let me know if I can appeal the decision. MD OSCAR Swartz/MIGDALIA /[id number]
[2019-07-12] MEDS: TAMSULOSIN HCL 0.4 MG CAP PO SCH (21:02)
[2019-07-12] MEDS: ATORVASTATIN 10 MG TAB PO SCH (21:02)
[2019-07-13] VITALS: BP 132/54
--- NOTE | 2019-07-13 01:14 | Progress Note ---
DATE: Cardiology Progress Note SUBJECTIVE: The patient denies chest pain or shortness of breath. OBJECTIVE: VITAL SIGNS: Temperature 97.5 degrees, pulse 69, respiratory rate is 18, blood pressure 122/59, and oxygen saturation 98% on room air. GENERAL: Awake and alert, in no acute distress. LUNGS: Clear to auscultation bilaterally. No wheeze or crackles. CARDIOVASCULAR: Normal rate, regular rhythm. No murmur. Normal S1 and S2. ABDOMEN: Soft and nontender. EXTREMITIES: No edema. CARDIAC MEDICATIONS: Atorvastatin 10 mg p.o. at bedtime, carvedilol 3.125 mg p.o. b.i.d., Plavix 75 mg p.o. daily, and aspirin 81 mg p.o. daily. LABORATORY DATA: Labs none today. TELEMETRY: AV paced. IMPRESSION: 1. Acute kidney injury. 2. Sepsis secondary to pneumonia and left lower extremity wound. 3. Chronic systolic heart failure, status post ICD. 4. Coronary artery disease. 5. Hypertension. 6. Hyperlipidemia. 7. History of cerebrovascular accident with residual right-sided weakness. RECOMMENDATIONS: Monitor the patient on telemetry. Continue current cardiac medications. The patient's blood pressure is improved. We will watch volume status closely. If the patient's renal function remains stable. Recommended re-initiation of JHONY inhibitor peripheral angiogram has been reviewed. He has no significant peripheral arterial disease. Continue antibiotics per primary service continue supportive care. Thank you for this consult. We will continue to follow. Chelsey Castillo MD ABS/MODL /[id number]
[2019-07-13] MEDS: PIPER-TAZ 3.375 GM 50 ML IV SCH ×3 (01:29→18:00)
[2019-07-13 04:00] VITALS: BP 141/65
[2019-07-13 06:29] LABS: BASOPHILS # (AUTO) 0.1 (0.0-0.1); BASOPHILS % 0.8 % (0.0-1.0); EOSINOPHILS # (AUTO) 0.3 (0.0-0.4); EOSINOPHILS % 4.5 % (0.0-6.0); HEMATOCRIT 22.7 % (38.2-49.6); HEMOGLOBIN 7.5 g/dL (14.0-18.0); LYMPHOCYTES # (AUTO) 1.6 (1.0-3.2); LYMPHOCYTES % 26.4 % (18.0-39.1); MEAN CORPUSCULAR HEMOGLOBIN 31.9 pg (28-32); MEAN CORPUSCULAR VOLUME 96.6 fL (81-99); MONOCYTES # (AUTO) 0.4 (0.2-0.8); MONOCYTES % 6.1 % (4.4-11.3); NEUTROPHILS # (AUTO) 3.7 (2.1-6.9); NEUTROPHILS % 61.9 % (38.7-80.0); PLATELET COUNT 194 x10e3/uL (140-360); RED BLOOD COUNT 2.35 x10e6/uL (4.3-5.7); RED CELL DISTRIBUTION WIDTH 12.7 % (11.7-14.4)
[2019-07-13] MEDS: INSULIN LISPRO 100 UNIT/1 ML 3ML VIAL SQ SCH ×4 (07:30→21:00)
[2019-07-13 07:46] VITALS: BP 157/72
[2019-07-13] MEDS: CYANOCOBALAMIN 1,000 MCG TAB PO SCH (09:00)
[2019-07-13] MEDS: CLOPIDOGREL BISULFATE 75 MG TAB PO SCH (09:00)
[2019-07-13] MEDS: FINASTERIDE 5 MG TAB PO SCH (09:00)
[2019-07-13] MEDS: SODIUM BICARBONATE 650 MG TAB PO SCH (09:00)
[2019-07-13] MEDS: ASPIRIN 81 MG CHEW TAB PO SCH (09:00)
[2019-07-13] MEDS: INSULIN GLARGINE 100 UNITS/ML VIAL SQ SCH (09:00)
[2019-07-13] MEDS: CARVEDILOL 3.125 MG TAB PO SCH ×2 (09:00→17:00)
[2019-07-13] MEDS: SERTRALINE HCL 50 MG TAB PO SCH (09:00)
--- NOTE | 2019-07-13 11:32 | Progress Note ---
DATE: 07/13/2019 SUBJECTIVE: This is a 68-year-old male with past medical history of type 2 diabetes, peripheral neuropathy, coronary artery disease, peripheral vascular disease, chronic renal insufficiency, and stroke. He is currently postoperative week one left partial 1st ray amputation for osteomyelitis. The patient currently denies pain to his foot. Denies nausea, vomiting, fever, chills, chest pain, or shortness of breath. PHYSICAL EXAMINATION: GENERAL: Alert, oriented x3, in no apparent distress. VITAL SIGNS: Today temperature 96.5, heart rate 65, respiratory rate 18, blood pressure , pulse ox 99% on room air. PROBLEM FOCUSED LOWER EXTREMITY PHYSICAL EXAM: VASCULAR: Dorsalis pedis pulse is faintly palpable. Capillary refill time is approximately 4 to 5 seconds to all remaining digits. Negative erythema, edema, or warmth is noted to the patient's left foot. NEUROLOGICAL: Sensation is absent to light touch bilateral. MUSCULOSKELETAL: Left partial 1st ray amputation dorsally contracted digits 2 through 5 to the left, otherwise deferred. DERMATOLOGIC: Incision site is noted to the patient's left foot. All sutures remain to be in place and intact. No evidence of wound dehiscence. No local acute signs of infection. No structures noted to the bandage. LABORATORY DATA: hemoglobin 7.5, hematocrit 22.7, and platelet count is 194. Glucose 112. ASSESSMENT: 1. Left foot osteomyelitis, postoperative week one, partial first ray amputation. 2. Type 2 diabetes, peripheral neuropathy. 3. Peripheral vascular disease. 4. Renal insufficiency. PLAN: The patient was seen and evaluated, discussed condition and treatment options with patient in detail. At this time, continue to recommend Betadine wet-to-dry dressing change every other day. Sutures remain in place and intact. No signs of infection. The patient remains stable to be discharged from the podiatry standpoint with recommendation of long-term IV antibiotics and local wound care with hyperbaric oxygen. The patient is seen by Cardiology and determined no angioplasty is needed at this time. The patient denied an LTAC, but a peer to peer review is pending per the primary care team. The Podiatry Service will continue to monitor as inpatient. PIOTR Jang/MODL /[id number]
[2019-07-13 11:35] VITALS: BP 156/79
--- NOTE | 2019-07-13 13:53 | Progress Note ---
DATE: Internal Medicine Progress Note SUBJECTIVE: The patient was still waiting for insurance company to see if they can appeal the denial on the patient for transfer to [facility]. I called yesterday, the medical receptionist assistant was on the phone with somebody else, they promised me they were going to call me back, they never called me. We are going to try to reach them again for the second time. PHYSICAL EXAMINATION: VITAL SIGNS: On the blood pressure 156/79, temperature 97.9, heart rate 61 per minute, respiratory rate 20 per minute, ox saturation 98%. HEART: Showed regular rhythm. Normal S1, S2 sound. LUNGS: Clear bilaterally. ABDOMEN: Soft. LABORATORY DATA: On the BMP; sodium 137, potassium 4.3, chloride 108, CO2 of 23, BUN 22, creatinine 1.33, glucose 108. On CBC; white count 6.05, hemoglobin 7.5, hematocrit 22.7, platelet count of 184,000. PT 15.1, INR 1.13, PTT 39.3. AST 12, ALT 7, total bilirubin 0.2, alkaline phosphatase 77. FINAL IMPRESSION: 1. Osteomyelitis on the left foot with gangrene, status post partial amputation of left foot. 2. 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 3. Chronic renal failure stage 2 to 3. 4. Significant peripheral vascular disease. 5. Hypertension. 6. Benign prostatic hypertrophy. PLAN OF TREATMENT: We are going to continue Zosyn. Continue Lipitor 10 mg daily, aspirin 81 mg daily, Proscar 5 mg daily. Continue Zofran 4 mg IV q.4 hours as needed, Plavix 75 mg daily, vitamin B12 1000 mcg daily, sodium bicarbonate 1300 mg daily p.o., sertraline 50 mg daily. Continue Lantus 35 units daily, carvedilol 3.125 mg twice a day, Flomax 0.4 mg daily. Monitor blood sugar before meals and at bedtime. Hydralazine 10 mg IV q.4 hours as needed. We are still waiting for the medical receptionist assistant of medical group insurance [employer] to do the peer to peer to appeal the denial decision of the patient to be transferred to [facility]. The patient meets criteria due to the fact that he is on IV antibiotic. He needs extensive wound care. He also was found to have pneumonia. He has renal insufficiency. He has diabetes. He has peripheral vascular disease, very complex one. MD OSCAR Swartz/MIGDALIA /[id number]
[2019-07-13 15:42] VITALS: BP 106/59
[2019-07-13] MEDS: TAMSULOSIN HCL 0.4 MG CAP PO SCH (21:00)
[2019-07-13] MEDS: ATORVASTATIN 10 MG TAB PO SCH (21:00)
[2019-07-14] VITALS (7 sets, daily range): BP systolic 121–156; BP diastolic 56–76
--- NOTE | 2019-07-14 03:11 | Progress Note ---
DATE: 07/13/2019 Cardiology Progress Note SUBJECTIVE: The patient denies chest pain or shortness of breath. OBJECTIVE: VITAL SIGNS: Reviewed. GENERAL: Awake and alert, in no acute distress. LUNGS: Clear to auscultation bilaterally. No wheeze or crackles. CARDIOVASCULAR: Normal rate, regular rhythm. No murmur. Normal S1 and S2. ABDOMEN: Soft and nontender. EXTREMITIES: No edema. TELEMETRY: V-paced. ASSESSMENT: Left foot wound. PLAN: Continue current cardiac medications. IV antibiotics per primary service. Wound care per Podiatry. Thank you for this consult. We will continue to follow. Chelsey Castillo MD ABS/MODL /[id number]
[2019-07-14] MEDS: PIPER-TAZ 3.375 GM 50 ML IV SCH ×5 (06:00→23:54)
[2019-07-14] MEDS: INSULIN LISPRO 100 UNIT/1 ML 3ML VIAL SQ SCH ×4 (07:30→20:19)
[2019-07-14] MEDS: AMLODIPINE BESYLATE 5 MG TAB PO SCH ×2 (08:25→08:27)
[2019-07-14] MEDS: CYANOCOBALAMIN 1,000 MCG TAB PO SCH (08:26)
[2019-07-14] MEDS: CARVEDILOL 3.125 MG TAB PO SCH ×3 (08:26→16:24)
[2019-07-14] MEDS: SERTRALINE HCL 50 MG TAB PO SCH (08:26)
[2019-07-14] MEDS: SODIUM BICARBONATE 650 MG TAB PO SCH (08:26)
[2019-07-14] MEDS: FINASTERIDE 5 MG TAB PO SCH (08:26)
[2019-07-14] MEDS: ASPIRIN 81 MG CHEW TAB PO SCH (08:26)
[2019-07-14] MEDS: CLOPIDOGREL BISULFATE 75 MG TAB PO SCH (08:26)
[2019-07-14] MEDS: INSULIN GLARGINE 100 UNITS/ML VIAL SQ SCH (09:04)
--- NOTE | 2019-07-14 19:00 | NUR ---
patient received awake, alert, lying quietly in bed. no c/o pain noted. dressing to left foot c,d,i. pm assessment complete. patient instructed to call for assistance when needed.
--- NOTE | 2019-07-14 19:12 | NUR ---
PATIENT IS AWAKE AND IN STABLE CONDITION WITH NO S/S OF RESPIRATORY DISTRESS. NO PAIN VOICED. DRESSING TO LEFT FOOT IS DRY AND INTACT. DIAPER APPLIED. BED ALARM. CALL LIGHT IS WITHIN REACH, PATIENT INSTRUCTED TO CALL FOR ASSISTANCE NEEDED. REPORT GIVEN TO ONCOMING NURSE.
--- NOTE | 2019-07-14 20:09 | Progress Note ---
DATE: Internal Medicine Progress Note SUBJECTIVE: The patient is doing well. No significant complaints. I talked with the claim review medical director for group, he denied the transfer the patient to a long-term care hospital. He only agreed with group home facility. I explained due to the complicated medical condition that patient has and severe peripheral vascular disease and recent amputation of the foot with pneumonia, also had a diagnosis of osteomyelitis, the patient will need a long-term care hospital which from my point of view will be more appropriate for the patient, but the claim review medical director denied that, so we are filing an appeal on that. PHYSICAL EXAMINATION: VITAL SIGNS: Blood pressure 156/76, temperature 36.7, heart rate 68 per minute, respiratory rate 18 per minute, and oxygen saturation 95%. HEART: Showed regular rate and rhythm. Normal S1 and S2 sound. LUNGS: Clear bilaterally. ABDOMEN: Soft. EXTREMITIES: Show trace edema in the left foot. LABORATORY DATA: On the blood work, we have CBC; white count 6.05, hemoglobin is 7.5, hematocrit 22.7, and platelet count 184,000. The last sodium was 117. FINAL IMPRESSION: 1. Left foot osteomyelitis, status post partial amputation of the foot. 2. Aspiration pneumonia. 3. Uncontrolled diabetes mellitus type 2 with chronic renal insufficiency. 4. Chronic renal failure, stage 3. 5. Severe peripheral vascular disease. 6. Benign prostatic hypertrophy. PLAN OF TREATMENT: Continue Zosyn 3.375 g IV every 6 hours, aspirin 81 mg daily, Lipitor 10 mg daily, finasteride 5 mg daily, Zofran 4 mg IV every 4 hours as needed, amlodipine 5 mg daily, Plavix 75 mg daily, vitamin B12 1000 mcg p.o. daily, sodium bicarbonate 1300 mg daily, and sertraline 50 mg daily. Continue with Lantus 35 units at bedtime. Continue diabetic renal diet. Continue monitoring blood sugar before meals and at bedtime. Continue carvedilol 3.125 mg twice a day. Continue Flomax 0.4 mg daily and hydralazine 10 mg IV every 4 hours as needed for hypertension. waiting on the outcome of the appeal. MD OSCAR Swartz/MIGDALIA /[id number]
[2019-07-14] MEDS: ATORVASTATIN 10 MG TAB PO SCH (20:25)
[2019-07-14] MEDS: TAMSULOSIN HCL 0.4 MG CAP PO SCH (20:25)
--- NOTE | 2019-07-14 23:07 | Progress Note ---
DATE: 07/14/2019 Cardiology Progress Note SUBJECTIVE: The patient denies chest pain or shortness of breath. OBJECTIVE: VITAL SIGNS: Temperature 97.5 degrees, pulse 76, respiratory rate is 18, blood pressure 127/61, and oxygen saturation 97%. GENERAL: Awake and alert in no acute distress. LUNGS: Clear to auscultation bilaterally. No wheeze or crackles. CARDIOVASCULAR: Normal rate, regular rhythm. No murmur. Normal S1 and S2. ABDOMEN: Soft and nontender. EXTREMITIES: No edema. CARDIAC MEDICATIONS: Carvedilol 3.125 mg p.o. b.i.d., amlodipine 5 mg p.o. daily, Plavix 75 mg p.o. daily, aspirin 81 mg p.o. daily, and atorvastatin 10 mg p.o. at bedtime. LABORATORY DATA: None today. IMPRESSION: 1. Acute kidney injury. 2. Sepsis secondary to pneumonia and left lower extremity wound. 3. Chronic systolic heart failure, status post ICD. 4. Coronary artery disease. 5. Hypertension. 6. Hyperlipidemia. 7. History of cerebrovascular accident with residual right-sided weakness. 8. Monitor the patient on telemetry. Continue current cardiac medications. The patient's blood pressure is improved, however, we would recommend patient amlodipine to be discontinued and the patient be started on lisinopril if renal function is stable. Watch volume status closely. The patient's peripheral angiogram has been reviewed. There is no significant peripheral arterial disease. Continue antibiotics per primary service. Wound care per Podiatry. Continue supportive care. Thank you for this consult. We will continue to follow. Chelsey Castillo MD ABS/MODL /[id number]
[2019-07-15] VITALS (9 sets, daily range): BP systolic 111–162; BP diastolic 54–84
[2019-07-15] MEDS: PIPER-TAZ 3.375 GM 50 ML IV SCH ×3 (05:27→17:37)
--- NOTE | 2019-07-15 07:00 | NUR ---
BEDSIDE SHIFT REPORT RECEIVED FROM THE DIGITAL HARDWARE DESIGN ENGINEER RN. EDUCATED PT ABOUT FALL PRECAUTIONS. PT VERBALIZED UNDERSTANDING. PT REFUSED BED ALARM. PT DENIES NEEDS AT THIS TIME.
[2019-07-15] MEDS: INSULIN LISPRO 100 UNIT/1 ML 3ML VIAL SQ SCH ×4 (07:30→21:36)
[2019-07-15] MEDS: CLOPIDOGREL BISULFATE 75 MG TAB PO SCH (08:15)
[2019-07-15] MEDS: CARVEDILOL 3.125 MG TAB PO SCH ×2 (08:16→17:36)
[2019-07-15] MEDS: ASPIRIN 81 MG CHEW TAB PO SCH (08:17)
[2019-07-15] MEDS: CYANOCOBALAMIN 1,000 MCG TAB PO SCH (08:17)
[2019-07-15] MEDS: AMLODIPINE BESYLATE 5 MG TAB PO SCH (08:17)
[2019-07-15] MEDS: SERTRALINE HCL 50 MG TAB PO SCH (08:17)
[2019-07-15] MEDS: SODIUM BICARBONATE 650 MG TAB PO SCH (08:17)
[2019-07-15] MEDS: FINASTERIDE 5 MG TAB PO SCH (08:18)
[2019-07-15] MEDS: INSULIN GLARGINE 100 UNITS/ML VIAL SQ SCH (09:00)
--- NOTE | 2019-07-15 12:25 | NUR ---
Received call from Vandana Gallo [phone] with [employer] regarding appeal for LTAC. She stated that they are currently doing an expedited appeal. They received fax with clinicals yesterday from [facility], but need additional clinical. Requested clinicals were faxed to . Appeal case #[id number]. States should have a determination by Wednesday, July 17, 2019 @ 7250.
[2019-07-15 15:06] LABS: BASOPHILS # (AUTO) 0.1 (0.0-0.1); EOSINOPHILS # (AUTO) 0.3 (0.0-0.4); HEMATOCRIT 22.2 % (38.2-49.6); HEMOGLOBIN 7.3 g/dL (14.0-18.0); LYMPHOCYTES # (AUTO) 2.1 (1.0-3.2); LYMPHOCYTES % 34.6 % (18.0-39.1); MEAN CORPUSCULAR HGB CONC 32.9 g/dL (31-35); MEAN CORPUSCULAR VOLUME 97.4 fL (81-99); MONOCYTES # (AUTO) 0.4 (0.2-0.8); MONOCYTES % 6.8 % (4.4-11.3); NEUTROPHILS # (AUTO) 3.3 (2.1-6.9); NEUTROPHILS % 52.4 % (38.7-80.0); PLATELET COUNT 187 x10e3/uL (140-360); RED BLOOD COUNT 2.28 x10e6/uL (4.3-5.7); RED CELL DISTRIBUTION WIDTH 12.7 % (11.7-14.4)
[2019-07-15 15:28] LABS: ALBUMIN 2.5 g/dL (3.5-5.0); ALBUMIN/GLOBULIN RATIO 0.5 (0.8-2.0); ANION GAP 10.6 mmol/L (8-16); CALCIUM 8.8 mg/dL (8.4-10.2); CREATININE, SERUM 1.53 mg/dL (0.72-1.25); POTASSIUM 4.6 mmol/L (3.5-5.1)
--- NOTE | 2019-07-15 16:47 | Diagnostic Imaging Report ---
Examination: Single AP view of the chest. COMPARISON: 07/02/2019 INDICATION: Right-sided pneumonia DISCUSSION: Left subclavian approach implanted cardiac device body and leads are unchanged in position. Lungs are well-inflated. Interval improvement in aeration of the right lung base compared to prior. No new consolidation or effusion. Stable cardiomediastinal contour. No acute osseous abnormality. IMPRESSION: Interval improvement in right basilar airspace disease relative to 07/02/2019. No new consolidation. Signed by: Dr. Aubrey Santos M.D. on 07/15/2019 4:44 PM
--- NOTE | 2019-07-15 18:40 | Progress Note ---
DATE: Cardiology Progress Note SUBJECTIVE: The patient is without any new complaints. He states that he feels okay. He denies any chest pain, shortness of breath, or palpitation. Continue to have a wound. OBJECTIVE: VITAL SIGNS: Temperature 97.4, pulse 62, respiratory rate 18, blood pressure 142/80, and oxygen saturation 98% on room air. GENERAL: Alert and oriented x3. Resting comfortably in bed. Does not appear to be in any acute distress. LUNGS: Diminished breath sounds throughout. No wheezing. No rhonchi or crackles. CARDIOVASCULAR: Normal rate and rhythm. No murmurs. No gallops. Normal S1 and S2. ABDOMEN: Soft and nontender. EXTREMITIES: Lower extremity, left foot wound covered with dressing. Absent pedal pulses bilaterally. CARDIOVASCULAR MEDICATIONS: Amlodipine 5 mg p.o. daily, aspirin 81 mg p.o. daily, Coreg 3.125 mg p.o. b.i.d., Plavix 75 p.o. daily, and atorvastatin 10 mg p.o. at bedtime. LABORATORY DATA: WBC 6.19, hemoglobin 7.3, hematocrit 22.2, and platelets 187. Sodium 137, potassium 4.6, BUN 23, and creatinine 1.53. TELEMETRY: V-paced rhythm. IMPRESSION: 1. Acute kidney injury. 2. Sepsis secondary to pneumonia. 3. Chronic systolic heart failure, status post ICD. 4. Coronary artery disease. 5. Hypertension. 6. Hyperlipidemia. 7. History of cerebrovascular accident with residual right-sided weakness. 8. Left lower extremity wound. RECOMMENDATIONS: Continue to monitor this patient closely. Continue to monitor blood pressure closely. Once the patient's renal function is stable, we will consider switching amlodipine to lisinopril. Watch volume status closely. This patient's peripheral angiogram has been reviewed and reveals no significant peripheral arterial disease. Continue antimicrobial therapy and wound care per sports team manager. We will continue to support this patient as needed. Dictated by Carisa Garcia NP MD STEPH ParkinsonV/MIGDALIA /[id number]
--- NOTE | 2019-07-15 19:00 | NUR ---
BEDSIDE SHIFT REPORT GIVEN TO THE MANAGER COMMUNITY RN. PT DENIED FURTHER NEEDS.
--- NOTE | 2019-07-15 19:13 | NUR ---
Report received and walking rounds complete. Pt A&O and resting in bed and no apparent distress. All safety measures ensured and pt call [facility] near.
[2019-07-15] MEDS: ATORVASTATIN 10 MG TAB PO SCH (21:35)
[2019-07-15] MEDS: TAMSULOSIN HCL 0.4 MG CAP PO SCH (21:35)
[2019-07-16] VITALS (7 sets, daily range): BP systolic 98–149; BP diastolic 51–80
[2019-07-16] MEDS: PIPER-TAZ 3.375 GM 50 ML IV SCH ×5 (00:31→23:41)
[2019-07-16 06:37] LABS: BASOPHILS % 0.4 % (0.0-1.0); EOSINOPHILS # (AUTO) 0.2 (0.0-0.4); HEMATOCRIT 24.5 % (38.2-49.6); HEMOGLOBIN 7.8 g/dL (14.0-18.0); LYMPHOCYTES # (AUTO) 1.7 (1.0-3.2); LYMPHOCYTES % 18.4 % (18.0-39.1); MEAN CORPUSCULAR HEMOGLOBIN 31.6 pg (28-32); MEAN CORPUSCULAR HGB CONC 31.8 g/dL (31-35); MEAN CORPUSCULAR VOLUME 99.2 fL (81-99); MONOCYTES # (AUTO) 0.2 (0.2-0.8); MONOCYTES % 2.6 % (4.4-11.3); NEUTROPHILS # (AUTO) 7.1 (2.1-6.9); NEUTROPHILS % 76.2 % (38.7-80.0); PLATELET COUNT 189 x10e3/uL (140-360); RED BLOOD COUNT 2.47 x10e6/uL (4.3-5.7); RED CELL DISTRIBUTION WIDTH 12.6 % (11.7-14.4)
[2019-07-16 07:07] LABS: ALBUMIN 2.6 g/dL (3.5-5.0); ALBUMIN/GLOBULIN RATIO 0.6 (0.8-2.0); ANION GAP 13.8 mmol/L (8-16); CALCIUM 9.3 mg/dL (8.4-10.2); CREATININE, SERUM 1.38 mg/dL (0.72-1.25); POTASSIUM 4.8 mmol/L (3.5-5.1)
--- NOTE | 2019-07-16 07:15 | NUR ---
received am report from nurse and morning rounds done. pt is alert laying in bed, no s/s of distress. call light within reach and instructed pt to call for help
--- NOTE | 2019-07-16 07:26 | NUR ---
Bedside report and walking rounds complete with day shift RN.
[2019-07-16] MEDS: INSULIN LISPRO 100 UNIT/1 ML 3ML VIAL SQ SCH ×4 (07:30→20:10)
[2019-07-16] MEDS: CLOPIDOGREL BISULFATE 75 MG TAB PO SCH (09:36)
[2019-07-16] MEDS: AMLODIPINE BESYLATE 5 MG TAB PO SCH (09:36)
[2019-07-16] MEDS: CARVEDILOL 3.125 MG TAB PO SCH ×2 (09:36→17:26)
[2019-07-16] MEDS: SODIUM BICARBONATE 650 MG TAB PO SCH (09:37)
[2019-07-16] MEDS: FINASTERIDE 5 MG TAB PO SCH (09:37)
[2019-07-16] MEDS: CYANOCOBALAMIN 1,000 MCG TAB PO SCH (09:37)
[2019-07-16] MEDS: SERTRALINE HCL 50 MG TAB PO SCH (09:38)
[2019-07-16] MEDS: ASPIRIN 81 MG CHEW TAB PO SCH (09:38)
[2019-07-16] MEDS: INSULIN GLARGINE 100 UNITS/ML VIAL SQ SCH (09:40)
--- NOTE | 2019-07-16 13:30 | Progress Note ---
DATE: Cardiology Progress Note SUBJECTIVE: The patient is without any complaints. He states that he feels well. OBJECTIVE: VITAL SIGNS: Temperature 96.8, pulse 70, respiratory rate 18, blood pressure 140/71, oxygen saturation 98% on room air. GENERAL: Alert and oriented x3. Resting comfortably in bed, does not appear to be in any acute distress. Reports he is blind. LUNGS: Diminished breath sounds in anterior and posterior lower lobes, otherwise clear to auscultation. No wheezing. No rhonchi or crackles. CARDIOVASCULAR: Normal rate and rhythm. Normal S1, S2. ABDOMEN: Soft, nontender. EXTREMITIES: Lower extremity, left lower extremity catheter covered with dressing. Bilateral lower extremity warm to the touch. Absent pedal pulses noted. CARDIOVASCULAR MEDICATIONS: Aspirin 81 mg p.o. daily, amlodipine 5 mg p.o. daily, Coreg 3.125 mg p.o. b.i.d., atorvastatin 10 mg p.o. at bedtime. LABORATORY DATA: WBC 9.29, hemoglobin 7.8, hematocrit 24.5, platelets 189. Sodium 141, potassium 4.8, BUN 23, creatinine 1.38, GFR 52. IMPRESSION: 1. Acute kidney disease. 2. Sepsis secondary to pneumonia. 3. Chronic systolic heart failure, status post implantable cardioverter-defibrillator. 4. Coronary artery disease. 5. Hypertension. 6. Hyperlipidemia. 7. History of cerebrovascular accident with residual right-sided weakness. 8. Left lower extremity wound. RECOMMENDATIONS: Continue to monitor this patient. Continue wound care and monitor wound healing. Kidney function noted to have improved. We will go ahead and switch the patient from amlodipine to an JHONY inhibitor. We will continue to watch his volume status closely. His recent peripheral angiogram revealed no significant peripheral arterial disease. Continue antimicrobial therapy at this time. We will continue to support this patient as needed. Dictated by Carisa Garcia, HEATHER MD STEPH ParkinsonV/MIGDALIA /[id number]
--- NOTE | 2019-07-16 16:15 | NUR ---
Visit made by the Spiritual Care Department Pastoral Visitor, Pawan Rich. PV provided pastoral presence, hospitality, and supportive listening. Pastoral Visitor informed pt/family of the scope of [employer] and availability. HUEY HARVEY Sales Rep Spiritual Care Department O: [phone] Pager: [phone] ([phone] number calling from)
[2019-07-16] MEDS: TAMSULOSIN HCL 0.4 MG CAP PO SCH (20:10)
[2019-07-16] MEDS: ATORVASTATIN 10 MG TAB PO SCH (20:10)
--- NOTE | 2019-07-16 20:10 | NUR ---
PATIENT IS IN STABLE CONDITION, NO DISTRESS NOTED. PATIENT IS RESTING IN BED, BOTH EYES CLOSED. DRESSING ON LEFT FOOT IS CLEAN, DRY, AND INTACT, NO DRAINAGE NOTED. BED IS LOCKED AND LOWEST POSITION, BOTH SIDE RAILS ARE UP, BED ALARM ENGAGED, CALL LIGHT WITHIN EASY REACH, WILL CONTINUE TO MONITOR.
[2019-07-17] VITALS (7 sets, daily range): BP systolic 101–146; BP diastolic 43–72
[2019-07-17] MEDS: PIPER-TAZ 3.375 GM 50 ML IV SCH ×3 (05:52→17:42)
[2019-07-17] MEDS: INSULIN LISPRO 100 UNIT/1 ML 3ML VIAL SQ SCH ×4 (07:30→21:00)
[2019-07-17] MEDS: ASPIRIN 81 MG CHEW TAB PO SCH (08:30)
[2019-07-17] MEDS: CARVEDILOL 3.125 MG TAB PO SCH ×2 (08:30→17:41)
[2019-07-17] MEDS: SODIUM BICARBONATE 650 MG TAB PO SCH (08:31)
[2019-07-17] MEDS: FINASTERIDE 5 MG TAB PO SCH (08:31)
[2019-07-17] MEDS: LOSARTAN POTASSIUM 100 MG TAB PO SCH (08:31)
[2019-07-17] MEDS: CLOPIDOGREL BISULFATE 75 MG TAB PO SCH (08:31)
[2019-07-17] MEDS: SERTRALINE HCL 50 MG TAB PO SCH (08:32)
[2019-07-17] MEDS: CYANOCOBALAMIN 1,000 MCG TAB PO SCH (08:32)
[2019-07-17] MEDS: INSULIN GLARGINE 100 UNITS/ML VIAL SQ SCH (08:36)
--- NOTE | 2019-07-17 10:57 | Progress Note ---
DATE: Internal Medicine Progress Note SUBJECTIVE: The patient is doing well. No significant complaint, was still waiting for the appeal process for denial on the patient for a transfer to the [facility] from the medical instrument technician, so we are going to see we can reverse the decision. PHYSICAL EXAMINATION: HEART: Showed regular rate and rhythm. Normal S1 and S2 sound. LUNGS: Clear bilaterally. ABDOMEN: Soft. EXTREMITIES: Show trace edema in the left foot. VITAL SIGNS: Blood pressure 146/72, temperature 97.5, heart rate 66 per minute, respiratory rate 16 per minute, and oxygen saturation 97%. LABORATORY DATA: On the blood work, we have CBC; white blood count 9.29, hemoglobin 7.8, hematocrit 24.5, and platelet count 189,000. On the last BMP; sodium 141, potassium 4.8, chloride 107, CO2 of 25, BUN 23, creatinine 1.38, glucose 86, calcium 9.3, total bilirubin 0.2, AST 13, and ALT 11. IMPRESSION: 1. Osteomyelitis of left foot, status post partial amputation of the left foot. 2. Pneumonia. 3. Chronic renal failure, stage 3 secondary to diabetic nephropathy. 4. 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 5. Peripheral vascular disease. 6. Anemia of chronic disease. PLAN OF TREATMENT: We are going to continue current wound care orders. Continue Zosyn 3.375 g IV every 6 hours. Continue aspirin 81 mg daily, Lipitor 10 mg daily, carvedilol 3.125 mg twice a day, Plavix 75 mg daily, vitamin B12 1000 mcg p.o. daily, and Proscar 5 mg daily. Continue monitoring blood sugar before meals and at bedtime. Continue hydralazine 10 mg IV every 4 hours as needed for hypertension, Lantus 35 units at bedtime, Cozaar 50 mg daily, sertraline 50 mg daily, Zofran 4 mg p.o. every 4 hours as needed for nausea and vomiting, sodium bicarbonate 1300 mg daily, and Flomax 0.4 mg at bedtime. As I said, we are waiting for the appeal on the decision of the denial of the insurance company to go to formerly [facility]. Hopefully, we can hear that pretty soon. MD OSCAR Swartz/MIGDALIA /[id number]
--- NOTE | 2019-07-17 11:01 | Progress Note ---
DATE: 07/17/2019 SUBJECTIVE: This is a 68-year-old male with past medical history of type 2 diabetes, peripheral neuropathy, coronary artery disease, peripheral vascular disease, chronic renal insufficiency, and a stroke. He is currently postoperative week two left partial first ray amputation, date of surgery was 07/06/2019. He currently denies pain to his foot. Denies nausea, vomiting, fever, chills, chest pain, or shortness of breath. PHYSICAL EXAMINATION: GENERAL: Alert and oriented x3, in no apparent distress. VITAL SIGNS: Today temperature 97.5, heart rate 62, respiratory rate 16, blood pressure 146/72, and pulse ox 97% on room air. PROBLEM FOCUSED LOWER EXTREMITY PHYSICAL EXAM: Vascular, dorsalis pedis pulse is faintly palpable. Posterior tibial pulse is not palpable. Capillary refill time is approximately 4 to 5 seconds to all remaining digits in the left foot. Negative erythema, edema, or warmth is noted to the patient's left foot. NEUROLOGICAL: Sensation is absent to light touch bilateral. MUSCULOSKELETAL: Partial first ray amputation dorsally contracted digits 2 through 5. DERMATOLOGICAL: Incision site is noted to the patient's left foot. All sutures remain to be in place and intact. No evidence of wound dehiscence. No local acute signs of infection. No strike through was noted to the bandage. LABORATORY DATA: White blood cell count is 9.2, hemoglobin 7.8, hematocrit 24.5, and platelet count is 189. Glucose 156. ASSESSMENT: 1. Left foot osteomyelitis, postop week two partial first ray amputation. 2. Type 2 diabetes with peripheral neuropathy. 3. Peripheral vascular disease. 4. Renal insufficiency. PLAN: The patient was seen and evaluated, discussed condition and treatment options with the patient in detail. At this time, we will continue to recommend Betadine wet-to-dry dressing changes every other day to the patient's left foot. Sutures remain in place and intact. No acute signs of infection. The patient remains to be stable to be discharged from the Podiatry standpoint with long-term IV antibiotics and local wound care and hyperbaric oxygen. The patient was initially denied an LTAC, but appeal was in the process. Podiatry Service will continue to monitor as an inpatient. PIOTR Jang/NITOL /[id number]
--- NOTE | 2019-07-17 16:25 | NUR ---
RECEIVED NOTIFICATION OF DENIAL FOR [facility] WAS UPHELD. NOTIFIED DR. MONTAÑO. SPOKE W BEDSIDE NURSE; DONELL. DISCUSSED SNF. WILL ASK DR. MONTAÑO FOR AN ORDER.
--- NOTE | 2019-07-17 18:04 | Progress Note ---
DATE: 07/14/2019 Cardiology Progress Note SUBJECTIVE: No major events overnight. OBJECTIVE: VITAL SIGNS: Temperature afebrile, pulse 60, respiratory rate 18, blood pressure 119/56, saturating 100% on room air. GENERAL: Middle-aged man, in no acute distress. CARDIOVASCULAR: Regular rate and rhythm. No murmurs, rubs, or gallops. LUNGS: Clear to auscultation bilaterally. ABDOMEN: Soft, nontender, nondistended. NEURO AND PSYCH: Alert and oriented to person, place, and time. Normal affect. EXTREMITIES: Right wrist contracture. INPATIENT MEDICATIONS: Reviewed. LABORATORY DATA: Reviewed. ASSESSMENT AND PLAN: 1. Acute kidney injury on chronic kidney disease. 2. Sepsis secondary to pneumonia. 3. Chronic systolic heart failure, status post ICD placement. 4. Coronary artery disease. 5. Hypertension. 6. Hyperlipidemia. 7. History of cerebrovascular accident with residual right-sided weakness. 8. Left lower extremity wound. RECOMMENDATIONS: Continue to monitor kidney function and is improving and recent peripheral angiogram, which revealed no significant PAD. Continue antibiotics per primary team. Thank you for this consult. We will continue to follow. MD VINCENT Butler/MIGDALIA /[id number]
--- NOTE | 2019-07-17 18:56 | NUR ---
Nutrition Follow Up Note RD Recommendation(s) for Physician / Nutrition Prescription: continue with diet as prescribed Plan of Care: Patient has been screened and assessed for nutrition risk. At this time, the patient does not pose any nutrition risk. No further nutrition intervention is warranted at this time. Will re-evaluate if consulted by medical staff. Nutrition reason for involvement: follow up Primary Dx: Left foot osteomyelitis, partial 1st toe amputation PMH: Type 2 diabetes, peripheral neuropathy, coronary artery disease, peripheral vascular disease; chronic renal insufficiency, and stroke Ht: 72in Wt: 207lb BMI: 28.1kg/m2 IBW: 178lb +/- 10% RD Assessment: 07/17: Pt seen today for follow up. Pt discussed during am rounds, renal insufficiency has resolved and plan for discharge to [place] soon. Pt reports good appetite and po intake, denies any GI distress currently. Noted 75-100% po intake per chart. LBM 07/16. Labs and meds reviewed. Will monitor and continue to follow. (07/07) 68yo M, who was admitted for L foot osteomyelitis. Visited pt in the room per LOS. Pt reported good appetite. No complains of nausea or vomiting. Pt denied any chewing or swallowing difficulty. Weight has been stable. Current diet is appropriate and adequate. Malnutrition Evaluation (07/07/2019) The patient does not meet criteria for a specified degree of malnutrition at this time. Will re-evaluate at follow-up as appropriate. Diet Education Needs Assessment: Diet education not indicated. Nutrition Care Level: Low Signed: Yara Alex RD, LD, [facility]
--- NOTE | 2019-07-17 19:15 | NUR ---
Patient visited in room during nursing rounds. Patient alert and oriented x3. No distress or discomfort noted at this time. Post amputation on left great toe and left 2nd toe 2 weeks ago and currently wrapped with surgical gauze, kerlix and leyla wrap bandage. Right side upper and lower extremities weak due CVA history. Call [facility] within reach. Will monitor closely.
[2019-07-17] MEDS: TAMSULOSIN HCL 0.4 MG CAP PO SCH (21:20)
[2019-07-17] MEDS: ATORVASTATIN 10 MG TAB PO SCH (21:20)
[2019-07-17] MEDS ORDERED: SODIUM CHLORIDE 0.9% 250ML 250 ML ONE (23:58)
[2019-07-18] VITALS (7 sets, daily range): BP systolic 101–139; BP diastolic 54–67
[2019-07-18] MEDS: PIPER-TAZ 3.375 GM 50 ML IV SCH ×4 (00:10→17:38)
--- NOTE | 2019-07-18 07:00 | NUR ---
RCD PT AT BED PT IS ALERT AND ORIENTED RESTING ON BED NO SIGNS OF ANY DISTRESS NOTED IV PATENT BY SALINE FLUSH BED LOW AND LOCKED CALL LIGHT IN REACH
[2019-07-18] MEDS: INSULIN LISPRO 100 UNIT/1 ML 3ML VIAL SQ SCH ×4 (07:30→22:15)
--- NOTE | 2019-07-18 08:51 | NUR ---
FOCUSED CARE ETHAN VELÁZQUEZ IS NOT TAKING [employer] AT THIS TIME, [facility] STATES PT WOULD HAVE TO PAY UPFRONT FOR HALF-WAY PLACEMENT, FAMILY STATED IN PAST THEY WOULD BE UNABLE TO DO THAT, THEY HAD CHOSE [facility] IN [place] [facility] WILL SPEAK WITH BROTHER TO SEE IF THAT IS STILL THE PLAN.
[2019-07-18] MEDS: LOSARTAN POTASSIUM 100 MG TAB PO SCH (09:00)
[2019-07-18] MEDS: INSULIN GLARGINE 100 UNITS/ML VIAL SQ SCH (09:00)
[2019-07-18] MEDS: SERTRALINE HCL 50 MG TAB PO SCH (09:00)
[2019-07-18] MEDS: FINASTERIDE 5 MG TAB PO SCH (09:00)
[2019-07-18] MEDS: ASPIRIN 81 MG CHEW TAB PO SCH (09:00)
[2019-07-18] MEDS: CYANOCOBALAMIN 1,000 MCG TAB PO SCH (09:00)
[2019-07-18] MEDS: CARVEDILOL 3.125 MG TAB PO SCH ×2 (09:00→17:00)
[2019-07-18] MEDS: SODIUM BICARBONATE 650 MG TAB PO SCH (09:00)
[2019-07-18] MEDS: CLOPIDOGREL BISULFATE 75 MG TAB PO SCH (09:00)
--- NOTE | 2019-07-18 09:05 | NUR ---
SPOKE WITH BROTHER HARINDERSanjiv PINEDA [phone] HE STATES HE WANTS [facility] BECAUSE IT IS CLOSER TO HIS HOME.
--- NOTE | 2019-07-18 09:23 | NUR ---
FAXED CLINICALS TO -
--- NOTE | 2019-07-18 16:55 | Progress Note ---
DATE: 07/18/2019 Cardiology Progress Note SUBJECTIVE: No major events overnight. OBJECTIVE: VITAL SIGNS: Temperature afebrile, pulse 61, respiratory rate 18, blood pressure 115/60, and saturating 99% on room air. GENERAL: Well-developed, well-nourished, no acute distress. CARDIOVASCULAR: Regular rate and rhythm. No murmurs, rubs, or gallops. LUNGS: Clear to auscultate bilaterally. ABDOMEN: Soft, nontender, and nondistended. NEURO AND PSYCH: Alert and oriented to person, place, and time. Normal affect. EXTREMITIES: Right wrist contracture. INPATIENT MEDICATIONS: Reviewed. LABORATORY DATA: Reviewed. ASSESSMENT AND PLAN: 1. Acute kidney injury on chronic kidney disease. 2. Sepsis secondary to pneumonia. 3. Chronic systolic heart failure, status post ICD placement. 4. Coronary artery disease. 5. Hypertension. 6. Hyperlipidemia. 7. History of cerebrovascular accident with residual right-sided weakness. 8. Left lower extremity wound. RECOMMENDATIONS: Recent peripheral angiogram revealed no significant CAD. Continue antibiotics and wound care. Remains stable from cardiovascular standpoint. Otherwise, continue current medication including optimal heart failure therapy and dual antiplatelet therapy with aspirin and Plavix. Thank you for this consult. We will continue to follow. MD VINCENT Butler/MIGDALIA /[id number]
--- NOTE | 2019-07-18 18:43 | NUR ---
PT RESTING ON BED BED SIDE REPORT GIVEN TO ONCOMING NURSE
[2019-07-18] MEDS: ATORVASTATIN 10 MG TAB PO SCH (22:15)
[2019-07-18] MEDS: TAMSULOSIN HCL 0.4 MG CAP PO SCH (22:15)
[2019-07-19] VITALS (8 sets, daily range): BP systolic 124–160; BP diastolic 62–88
[2019-07-19] MEDS: PIPER-TAZ 3.375 GM 50 ML IV SCH ×5 (06:30→23:57)
[2019-07-19] MEDS: INSULIN LISPRO 100 UNIT/1 ML 3ML VIAL SQ SCH ×4 (07:30→21:00)
--- NOTE | 2019-07-19 08:29 | Discharge Summary ---
HOSPITAL COURSE: The patient is a 68-year-old male with past medical history positive for hypertension, diabetes, chronic renal insufficiency, also history of peripheral vascular disease. He came with open wound on the medial aspect of the left foot with osteomyelitis and evidence of gangrene. He underwent transmetatarsal amputation. The patient is still on IV antibiotic. He also was found to have pneumonia. He was started on broad-spectrum IV antibiotics. We requested [facility] for permission to transfer the patient to [facility]. They denied twice. So, the only choice that they gave us is penitentiary facility. So, the patient is going to a penitentiary facility, hopefully today maybe. PHYSICAL EXAMINATION: HEART: Showed regular rhythm. Normal S1 and S2 sound. LUNGS: Clear bilaterally. ABDOMEN: Soft. EXTREMITIES: Show dressing on the left foot. VITAL SIGNS: Blood pressure 137/63, temperature 36.8, heart rate 63 per minute, respiratory rate 17 per minute, oxygen saturation 99%. LABORATORY DATA: Last blood sugar is 88. Last BMP shows sodium 141, potassium 4.8, chloride 107, CO2 of 25, BUN 23, creatinine 1.38, glucose 86. On the last blood work, CBC; white blood count 9.29, hemoglobin 7.8, hematocrit 24.5, and platelet count 189,000. IMPRESSION: 1. Osteomyelitis and open wound on the left foot, status post left foot surgery. 2. Uncontrolled diabetes mellitus type 2 with chronic renal insufficiency. 3. Chronic renal failure stage 3 due to diabetic nephropathy. 4. Hypertension with most likely hypertensive nephropathy. 5. Anemia of chronic disease. PLAN OF TREATMENT: We are going to continue with current IV antibiotic therapy for at least total of 6 weeks with Zosyn 3.375 g IV q.6 hours, aspirin 81 mg daily, Lipitor 10 mg daily, carvedilol 3.125 mg twice a day, Plavix 75 mg daily, vitamin B12 of 1000 mcg daily. Continue finasteride 5 mg daily. Continue monitoring blood sugar before meals and at bedtime. Continue hydralazine 10 mg IV q.4 hours as needed for hypertension. Continue Lantus 35 units daily. Continue losartan 50 mg daily. Continue Zofran 4 mg p.o. q.4 hours as needed for nausea and vomiting. Continue Zoloft 50 mg daily, sodium bicarbonate 1300 mg daily, and then finally Flomax 0.4 mg daily. The patient is going to be transferred to a penitentiary facility once approved by the insurance. MD OSCAR Swartz/MIGDALIA /[id number]
[2019-07-19] MEDS: SERTRALINE HCL 50 MG TAB PO SCH (09:00)
[2019-07-19] MEDS: LOSARTAN POTASSIUM 100 MG TAB PO SCH (09:00)
[2019-07-19] MEDS: CLOPIDOGREL BISULFATE 75 MG TAB PO SCH (09:00)
[2019-07-19] MEDS: INSULIN GLARGINE 100 UNITS/ML VIAL SQ SCH (09:00)
[2019-07-19] MEDS: SODIUM BICARBONATE 650 MG TAB PO SCH (09:00)
[2019-07-19] MEDS: CARVEDILOL 3.125 MG TAB PO SCH ×2 (09:00→17:00)
[2019-07-19] MEDS: FINASTERIDE 5 MG TAB PO SCH (09:00)
[2019-07-19] MEDS: CYANOCOBALAMIN 1,000 MCG TAB PO SCH (09:00)
[2019-07-19] MEDS: ASPIRIN 81 MG CHEW TAB PO SCH (09:00)
--- NOTE | 2019-07-19 10:33 | NUR ---
PT BROTHER CAME HERE STATING INSURANCE TOLD HIM HIS BROTHER COULD GO TO [facility], WE CALLED [facility] AND SPOKE WITH REP KRISTIE FARIAS, SHE STATES THAT YESTERDAY THEY CALLED [employer] ASKED IF IN NETWORK, EXPLAINED THAT WE HAD SUBMITTED AND WENT THOUGH 3 LEVELS OF DENIALS AND THE INSURANCE NOTIFIED CAN PROVIDE CARE AT SNF LEVEL OF CARE. REP FROM INSURANCE STATED SHE WAS SORRY SHE DID NOT HAVE ACCESS TO THE INFORMATION AND WILL UPDATE HER RECORDS.
--- NOTE | 2019-07-19 13:59 | NUR ---
SPOKE WITH [facility] STILL PENDING AUTH FOR PLACEMENT.
--- NOTE | 2019-07-19 14:06 | Discharge Summary ---
HOSPITAL COURSE: A 68-year-old male with past medical history positive for peripheral vascular disease, hypertension, and diabetes, came here with osteomyelitis on the left foot, status post foot surgery with partial amputation of the left foot. The insurance, Group denied for him the opportunity to go to a long-term care hospital. Then, not only they denied that, they also denied halfway facility. The patient needs wound care. He needs IV antibiotics. We are trying to get him to an inpatient rehab facility, namely [facility] hopefully, so if the insurance agree with that. So far, we have not have any good options with his insurance company since they keep denying on everything. PHYSICAL EXAMINATION: HEART: Showed regular rhythm. Normal S1 and S2 sound. LUNGS: Clear bilaterally. ABDOMEN: Soft. FINAL IMPRESSION: 1. Osteomyelitis of the left foot with gangrene, status post partial amputation of the left foot. 2. Diabetes mellitus type 2 with chronic renal failure. 3. Chronic renal failure, stage 3 secondary to diabetic nephropathy. 4. Hypertension with hypertensive nephropathy. PLAN OF TREATMENT: Continue current IV antibiotic therapy. Continue rest of the medication. I already dictated in my several discharge summaries. We are going to see if the patient can go to the inpatient rehab today. MD OSCAR Swartz/MIGDALIA /[id number]
--- NOTE | 2019-07-19 15:20 | NUR ---
SPOKE WITH [facility], THEY ARE NOT IN WITH THAT PLAN BUT THEIR SISTER FACILITY [facility] IS IN NETWORK WITH THAT PLAN. CALLED BROTHER MARIALUISA EXPLAINED AND ASKED IF HE WANTS ME TO PROCEED WITH AUTH AT [facility] LOCATION. THEY WILL NOT CHARGE HIM UP FROM FOR THE MEDICAID PENDING PROCESS AND ASSIST HIM AFTER HE COMPLETES THE PAID PORTION FROM HIS MEDICARE SKILLED STAY.
--- NOTE | 2019-07-19 18:43 | NUR ---
PT RESTING ON BED BED SIDE EPORT GIVEN TO ONCOMING NURSE
--- NOTE | 2019-07-19 19:45 | NUR ---
PT IS RESTING IN BED. RESPIRATION IS EVEN AND UNLABORED, NO DISTRESS NOTED. BED IN THE LOWEST POSITION, LOCKED, AND CALL LIGHT WITHIN REACH. WILL CONTINUE TO MONITOR.
--- NOTE | 2019-07-19 19:46 | NUR ---
PT IS RESTING IN BED. RESPIRATION IS EVEN AND UNLABORED, NO DISTRESS NOTED. BED IN THE LOWEST POSITION, LOCKED, BED ALARM ON, AND CALL LIGHT WITHIN REACH. WILL CONTINUE TO MONITOR.
[2019-07-19] MEDS: TAMSULOSIN HCL 0.4 MG CAP PO SCH (21:09)
[2019-07-19] MEDS: ATORVASTATIN 10 MG TAB PO SCH (21:09)
[2019-07-20] VITALS (8 sets, daily range): BP systolic 96–144; BP diastolic 50–73
[2019-07-20] MEDS: PIPER-TAZ 3.375 GM 50 ML IV SCH ×4 (05:24→23:59)
[2019-07-20] MEDS: INSULIN LISPRO 100 UNIT/1 ML 3ML VIAL SQ SCH ×4 (07:30→21:00)
--- NOTE | 2019-07-20 07:30 | NUR ---
PATIENT IS AWAKE AND IN STABLE CONDITION WITH NO S/S OF RESPIRATORY DISTRESS. NO PAIN VOICED. LEFT FOOT DRESSING IS DRY AND INTACT- NO DRAINAGE. DIAPER APPLIED. BED ALARM APPLIED. CALL LIGHT IS WITHIN REACH, PATIENT INSTRUCTED TO CALL FOR ASSISTANCE NEEDED
[2019-07-20] MEDS: SODIUM BICARBONATE 650 MG TAB PO SCH (08:22)
[2019-07-20] MEDS: SERTRALINE HCL 50 MG TAB PO SCH (08:22)
[2019-07-20] MEDS: CYANOCOBALAMIN 1,000 MCG TAB PO SCH (08:22)
[2019-07-20] MEDS: LOSARTAN POTASSIUM 100 MG TAB PO SCH (08:22)
[2019-07-20] MEDS: CLOPIDOGREL BISULFATE 75 MG TAB PO SCH (08:22)
[2019-07-20] MEDS: CARVEDILOL 3.125 MG TAB PO SCH ×2 (08:23→16:24)
[2019-07-20] MEDS: FINASTERIDE 5 MG TAB PO SCH (08:23)
[2019-07-20] MEDS: ASPIRIN 81 MG CHEW TAB PO SCH (08:23)
--- NOTE | 2019-07-20 08:40 | NUR ---
CALLED REP TO SEE IF APPROVED, STILL PENDING.
[2019-07-20] MEDS: INSULIN GLARGINE 100 UNITS/ML VIAL SQ SCH (09:11)
--- NOTE | 2019-07-20 15:23 | NUR ---
Patient received denial for [facility]. In - Network facility is [facility] (original choice, [facility], not in network). CM placed call to CM: Chelsey Vargas CM/Gabriel P: [phone] ext. [phone] F: [phone] [email or web address] Left message on her voicemail to call CHUCKY Bundy to discuss discharge authorization for SNF.
--- NOTE | 2019-07-20 15:32 | NUR ---
CALLED ELAINE AT [phone] EXT [phone] TO SEE WHAT IS GOING ON WITH REFERRAL, GOT VOICEMAIL LEFT MESSAGE TO RETURN CALL.
--- NOTE | 2019-07-20 17:45 | Progress Note ---
DATE: Internal Medicine Progress Note SUBJECTIVE: The patient is still waiting for the insurance to approve to go to a long-term facility. PHYSICAL EXAMINATION: VITAL SIGNS: Blood pressure 121/64, temperature 37.1, heart rate 61 per minute, respiratory rate 17 per minute, and oxygen saturation 100%. HEART: Showed regular rhythm. Normal S1, S2 sound. LUNGS: Clear bilaterally. ABDOMEN: Soft. EXTREMITIES: Showed dressing on the left foot. No evidence of edema. LABORATORY DATA: On the BMP; sodium 141, potassium 4.8, chloride 107, CO2 25, BUN 23, creatinine 1.38, glucose 86. On the CBC; white count 9.29, hemoglobin 7.8, hematocrit 24.5, platelet count 189,000. PT 15.1, INR 1.13, PTT 39.3. AST 13, ALT 11, total bilirubin 0.2, alkaline phosphatase 65. IMPRESSION: 1. Osteomyelitis, left foot, status post left foot surgery. 2. Lobar pneumonia. 3. Chronic renal failure, stage 3. 4. 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 5. Peripheral vascular disease. 6. Anemia of chronic disease secondary to chronic renal insufficiency. PLAN OF TREATMENT: Continue current IV antibiotic therapy. Continue the pressor medication. As I said, we are still waiting on the insurance company to approve a long-term facility. MD OSCAR Swartz/MIGDALIA /[id number]
--- NOTE | 2019-07-20 19:09 | NUR ---
PATIENT RETURNED BACK TO BED AFTER SITTING UP IN WHEELCHAIR FOR SEVERAL HOURS. PATIENT IN STABLE CONDITION WITH NO S/S OF RESPIRATORY DISTRESS. NO PAIN VOICED. DRESSING TO LEFT FOOT IS INTACT- NO DRAINAGE NOTED. BED ALARM APPLIED. CALL LIGHT IS WITHIN REACH, PATIENT INSTRUCTED TO CALL FOR ASSISTANCE NEEDED. BEDSIDE REPORT GIVEN TO ONCOMING NURSE.
--- NOTE | 2019-07-20 19:20 | NUR ---
Received pt awake on bed, not in distress, dressing to the left foot noted intact. Call light within easy reach, will continue to monitor accordingly
[2019-07-20] MEDS: ATORVASTATIN 10 MG TAB PO SCH (21:42)
[2019-07-20] MEDS: TAMSULOSIN HCL 0.4 MG CAP PO SCH (21:42)
[2019-07-21] VITALS: BP 127/55
[2019-07-21 05:24] VITALS: BP 138/65
[2019-07-21 06:39] LABS: ANION GAP 10.3 mmol/L (8-16); CALCIUM 8.9 mg/dL (8.4-10.2); CREATININE, SERUM 1.61 mg/dL (0.72-1.25); POTASSIUM 4.3 mmol/L (3.5-5.1)
--- NOTE | 2019-07-21 07:00 | NUR ---
received call from the lab, pts blood glucose was 53, patient is alert and oriented, obeys commands, apple juice with sugar given. will recheck patient's blood sugar
--- NOTE | 2019-07-21 07:03 | NUR ---
received report from principal java developer RN, pt awake, alert, oriented, drinking juice, tolerating PO, no apparent distress noted, call light within reach, will continue to assess.
[2019-07-21] MEDS: INSULIN LISPRO 100 UNIT/1 ML 3ML VIAL SQ SCH ×2 (07:30→11:30)
[2019-07-21 08:55] VITALS: BP 138/65
[2019-07-21] MEDS: CARVEDILOL 3.125 MG TAB PO SCH (09:27)
[2019-07-21] MEDS: ASPIRIN 81 MG CHEW TAB PO SCH (09:27)
[2019-07-21] MEDS: FINASTERIDE 5 MG TAB PO SCH (09:29)
[2019-07-21] MEDS: LOSARTAN POTASSIUM 100 MG TAB PO SCH (09:29)
[2019-07-21] MEDS: CLOPIDOGREL BISULFATE 75 MG TAB PO SCH (09:29)
[2019-07-21] MEDS: SODIUM BICARBONATE 650 MG TAB PO SCH (09:30)
[2019-07-21] MEDS: SERTRALINE HCL 50 MG TAB PO SCH (09:30)
[2019-07-21] MEDS: CYANOCOBALAMIN 1,000 MCG TAB PO SCH (09:30)
--- NOTE | 2019-07-21 09:42 | NUR ---
INTERMEDIATE FACILITY DISCHARGE INFORMATION PATIENT HAS BEEN ACCEPTED TO: [facility] NAME:[facility] ADDRESS: [address] [place] [address] ACCEPTING VELOCITY SHOOTER:TL LING ACCEPTING MD: BIANCA ROOM: 109 NURSE CALL REPORT TO: IMM SIGNED AND OBTAINED (if applicable): VIA PHONE TO BROTHER CORAL THE FOLLOWING DOCUMENTS MUST ACCOMPANY PATIENT FOR TRANSFER: COPIED CHART: YES RTF: YES PASRR
[2019-07-21 09:43] VITALS: BP 132/61
[2019-07-21] MEDS: INSULIN GLARGINE 100 UNITS/ML VIAL SQ SCH (09:57)
--- NOTE | 2019-07-21 11:17 | NUR ---
spoke with brother informed him of [facility]
[2019-07-21 12:00] VITALS: BP 162/82
--- NOTE | 2019-07-22 06:30 | Discharge Summary ---
HISTORY: The patient is a 68-year-old male with past medical history positive for peripheral vascular disease, hypertension, diabetes, chronic renal failure, who came to the hospital because of worsening wound on the left foot. He underwent a left foot partial amputation. He was started on IV antibiotic because of osteomyelitis of the left foot. The patient is finally going to go to a retirement facility after waiting a long time for insurance to approve one. PHYSICAL EXAMINATION: VITAL SIGNS: Blood pressure 132/61, temperature 96.5, heart rate 79 per minute, respiratory rate 17 per minute oxygen saturation 100%. HEART: Showed regular rhythm. Normal S1 and S2 sound. LUNGS: Clear bilaterally. ABDOMEN: Soft. EXTREMITIES: Show dressing on the foot. LABORATORY DATA: BMP; sodium 134, potassium 4.3, chloride 104, CO2 of 24, BUN 29, creatinine 1.31, glucose 53. On the CBC; white blood count 9.29, hemoglobin 7.8, hematocrit 24.5, platelet count 189,000. PT 15.1, INR 1.13, PTT 39.3. AST 13, ALT 11, total bilirubin 0.2, alkaline phosphatase 65. FINAL IMPRESSION: 1. Left foot wound with osteomyelitis and gangrene, status post partial amputation of the left foot. 2. [id number] renal insufficiency secondary to diabetic nephropathy. 3. Uncontrolled diabetes mellitus type 2 with diabetic nephropathy. 4. Hypertension with hypertensive nephropathy. 5. Severe peripheral vascular disease. 6. Anemia of chronic disease secondary to chronic renal failure. PLAN OF TREATMENT: Continue aspirin 81 mg daily, Lipitor 10 mg daily, Proscar 5 mg daily, Plavix 75 mg daily, vitamin B12 of 1000 mcg daily, sodium bicarbonate 1300 mg daily, sertraline 50 mg daily, Lantus 35 units at bedtime, carvedilol 3.125 mg twice a day, Flomax 0.4 mg at bedtime. Continue monitoring blood sugar before meals and at bedtime. Continue diabetic renal diet. Continue hydralazine 10 mg IV q.4 hours as needed for hypertension, D50 IV push as needed for hypoglycemia, Zofran 4 mg IV q.4 hours as needed, losartan 50 mg daily. The patient is going to [facility] for continuation of wound care and IV antibiotic. MD OSCAR Swartz/MIGDALIA /[id number]
== END 2019-07-21 14:22 | DRG 853 ==
LOC: ER 11:08 → ERHOLD 14:57 → ICU 15:43 → MED/SURG3 07-03 22:56
PROVIDERS: ADMIT Internal Medicine; ATTEND Internal Medicine
PROC: 0Y6Q0Z0 Detachment at Left 1st Toe, Complete, Open Approach (ICD-10-PCS; principal; 2019-07-06 06:30)
DX: A41.9 Sepsis, unspecified organism (principal); J18.9 Pneumonia, unspecified organism; I63.9 Cerebral infarction, unspecified; M86.9 Osteomyelitis, unspecified; L97.526 Non-pressure chronic ulcer of other part of left foot with bone involvement without evidence of necrosis; N17.9 Acute kidney failure, unspecified; M86.8X7 Other osteomyelitis, ankle and foot; E11.622 Type 2 diabetes mellitus with other skin ulcer; E11.22 Type 2 diabetes mellitus with diabetic chronic kidney disease; N18.3 Chronic kidney disease, stage 3 (moderate); E87.5 Hyperkalemia; I10 Essential (primary) hypertension; I25.10 Atherosclerotic heart disease of native coronary artery without angina pectoris; I73.9 Peripheral vascular disease, unspecified; E11.621 Type 2 diabetes mellitus with foot ulcer; E11.69 Type 2 diabetes mellitus with other specified complication; Z79.4 Long term (current) use of insulin; E11.65 Type 2 diabetes mellitus with hyperglycemia; D63.8 Anemia in other chronic diseases classified elsewhere
CPT/HCPCS: 36415; 71045; 76770; 80048; 80053; 81001; 82550; 82553; 82948; 83605; 83735; 83880; 84484; 85025; 85610; 85730; 87040; 87071; 87075; 87086; 87186; 87205; 88304; 88307; 88311; 93005; 93925; 96360; 96372; 97139; 99284; J0456; J0610; J1100; J1815; J1817; J2001; J2405; J2543; J3010; J3370; J7030; J7050; J7799